=== PATIENT | female | born 1940 | race Caucasian/White ===

== ENCOUNTER 2020-08-02 11:23 | Outpatient (CLI) | payer MEDICARE, SELFPAY | END 2020-08-02 11:24 | disposition home or self-care (01) | LOC: ANHCOVIDVC 11:23 | PROVIDERS: PCP Family Medicine | DX: Z23 Encounter for immunization (principal) | CPT/HCPCS: 0001A; 91300 ==

== ENCOUNTER 2020-08-23 11:18 | Outpatient (CLI) | payer MEDICARE, SELFPAY | END 2020-08-23 11:19 | disposition home or self-care (01) | LOC: ANHCOVIDVC 11:18 | PROVIDERS: PCP Family Medicine | DX: Z23 Encounter for immunization (principal) | CPT/HCPCS: 0002A; 91300 ==

== ENCOUNTER 2021-01-11 12:39 | Outpatient (CLI) | payer MEDICARE, SELFPAY ==
--- NOTE | 2021-01-11 13:07 | ECHO_ITS ---
Patient Info Name: Sarah Beth Stafford Age: 81 years : 1940 Gender: Female Ht: 64 in Wt: 203 lbs BSA: 2.08 m2 HR: 55 bpm BP: 145 / 61 mmHg Technical Quality: Good Exam Date: 01/11/2021 1:24 PM Exam Location: [facility] Patient Status: Outpatient Admit Date: 01/11/2021 Staff Ordering Physician: Patrick Polo DO [employer] Instrument And Tool Maker: Teresita Wright RDCS Attending Provider: Patrick Polo DO Referring Physician: Christ COFFMAN; Exam Type: CA echo doppler color flow Study Info Indications - edema Complete two-dimensional, color flow and Doppler transthoracic echocardiogram is performed. Summary 1. Complete two-dimensional, color flow and Doppler transthoracic echocardiogram is performed. 2. Left ventricular chamber dimension is normal. 3. Left ventricular systolic function is normal, estimated at 55-60%. 4. There is mildly increased left ventricular wall thickness. 5. The left ventricular diastolic function is grade III diastolic dysfunction. 6. E/e' 18 is elevated. 7. Left atrial chamber dimension is severely enlarged. 8. Right atrial chamber dimension is mildly enlarged. 9. There is moderate aortic valve sclerosis. 10. There is mild aortic valve stenosis with a peak velocity of 229 cm/s, mean gradient of 13 mmHg, and aortic valve area of 1.6 cm2. 11. There is mild aortic valve regurgitation. 12. The mitral valve has mildly calcified annulus. 13. There is mild to moderate mitral valve regurgitation. 14. There is mild to moderate tricuspid valve regurgitation. 15. Mild pulmonary hypertension, estimated pulmonary arterial systolic pressure is 44 mmHg. 16. There is trivial pericardial effusion. Left Ventricle E/e' 18 is elevated. Left ventricular chamber dimension is normal. Left ventricular systolic function is normal, estimated at 55-60%. There is mildly increased left ventricular wall thickness. The left ventricular diastolic function is grade III diastolic dysfunction. Right Ventricle Right ventricular chamber dimension is normal. Right ventricular systolic function is normal. Left Atria Left atrial chamber dimension is severely enlarged. Right Atria Right atrial chamber dimension is mildly enlarged. Aortic Valve The aortic valve is trileaflet. There is moderate aortic valve sclerosis. There is mild aortic valve stenosis with a peak velocity of 229 cm/s, mean gradient of 13 mmHg, and aortic valve area of 1.6 cm2. There is mild aortic valve regurgitation. Pulmonic Valve There is no pulmonic regurgitation. Mitral Valve The mitral valve has mildly calcified annulus. There is no mitral valve stenosis. There is mild to moderate mitral valve regurgitation. Tricuspid Valve There is mild to moderate tricuspid valve regurgitation. Mild pulmonary hypertension, estimated pulmonary arterial systolic pressure is 44 mmHg. Pericardium/Pleural There is trivial pericardial effusion. Inferior Vena Cava Normal inferior vena cava with >50% collapse upon inspiration consistent with normal right atrial pressure, 5 mmHg. Aorta The aortic root size at the sinus of Valsalva is normal. Left Ventricular Outflow Tract Name Value Normal LVOT 2D LVOT Diameter 2.0 cm
== END 2021-01-11 12:40 | disposition home or self-care (01) ==
PROVIDERS: PCP Family Medicine; Visit Provider Internal Medicine Cardiovascular Disease
DX: R60.0 Localized edema (principal); I35.0 Nonrheumatic aortic (valve) stenosis; I34.0 Nonrheumatic mitral (valve) insufficiency; I36.1 Nonrheumatic tricuspid (valve) insufficiency; I27.20 Pulmonary hypertension, unspecified
CPT/HCPCS: 93306

== ENCOUNTER 2021-10-20 09:44 | Inpatient (IN) | payer MEDICARE, SELFPAY ==
[2021-10-20] VITALS (23 sets, daily range): BP systolic 110–130; BP diastolic 52–94; PULSE 63–106; RESP 16–37; TEMP 35.8–37; O2SAT 93–100; BMI 33.4
--- NOTE | 2021-10-20 | ECHO_ITS ---
Patient Info Name: Sarah Beth Stafford Age: 81 years : 1940 Gender: Female Ht: 64 in Wt: 196 lbs BSA: 2.04 m2 HR: 68 bpm BP: 127 / 63 mmHg Technical Quality: Fair Exam Date: 10/20/2021 3:00 PM Exam Location: [facility] Pulmonary Exam Room: [facility] Patient Status: Inpatient Admit Date: 10/20/2021 Staff Ordering Physician: Patrick Polo DO Oil Well Logger: Teresita Wright RDCS Attending Provider: Mouna Keller PA-C Referring Physician: Christ COFFMAN; Exam Type: CA echo doppler color flow Study Info Indications - chf Complete two-dimensional, color flow and Doppler transthoracic echocardiogram is performed. Summary 1. Complete two-dimensional, color flow and Doppler transthoracic echocardiogram is performed. 2. Left ventricular chamber dimension is normal. 3. Left ventricular systolic function is normal, estimated at 55-60%. 4. The left ventricular diastolic function is abnormal. 5. E/e' 24 is elevated. 6. Left atrial chamber dimension is severely enlarged. 7. Right atrial chamber dimension is moderately enlarged. 8. There is moderate aortic valve sclerosis. 9. There is mild aortic valve stenosis with a peak velocity of 216 cm/s, mean gradient of 9 mmHg, and aortic valve area of 1.8 cm2. 10. There is mild to moderate aortic valve regurgitation. 11. There is moderate mitral valve regurgitation. 12. There is mild tricuspid valve regurgitation. 13. Moderate pulmonary hypertension, estimated pulmonary arterial systolic pressure is 58 mmHg. Left Ventricle E/e' 24 is elevated. Left ventricular chamber dimension is normal. Left ventricular systolic function is normal, estimated at 55-60%. The left ventricular diastolic function is abnormal. Right Ventricle Right ventricular systolic function is normal and with normal TAPSE 1.7 cm. Right ventricular chamber dimension is normal. Left Atria Left atrial chamber dimension is severely enlarged. Right Atria Right atrial chamber dimension is moderately enlarged. Aortic Valve The aortic valve is trileaflet. There is moderate aortic valve sclerosis. There is mild aortic valve stenosis with a peak velocity of 216 cm/s, mean gradient of 9 mmHg, and aortic valve area of 1.8 cm2. There is mild to moderate aortic valve regurgitation. Pulmonic Valve There is no pulmonic regurgitation. Mitral Valve There is no mitral valve stenosis. There is moderate mitral valve regurgitation. Tricuspid Valve There is mild tricuspid valve regurgitation. Moderate pulmonary hypertension, estimated pulmonary arterial systolic pressure is 58 mmHg. Pericardium/Pleural There is no pericardial effusion. Inferior Vena Cava Normal inferior vena cava with >50% collapse upon inspiration consistent with normal right atrial pressure, 5 mmHg. Aorta The aortic root size at the sinus of Valsalva is normal. Left Ventricular Outflow Tract Name Value Normal LVOT 2D LVOT Diameter 2.0 cm LVOT Doppler LVOT Peak Gradient 3 mmHg LVOT Mean Gradient 2 mmHg LVOT VTI 24 cm LVOT VTI/AV
--- NOTE | ~2021-10-20 | XR_ITS ---
XR chest 1V portable DATE: 10/23/2021 05:49 INDICATION: Congestive heart failure. Shortness of breath. TECHNIQUE: Portable upright AP chest on 10/23/2021 at 0541 hours COMPARISON: 10/20/2021. AP and lateral chest FINDINGS: Cardiomegaly. Pulmonary vascular congestion and redistribution. Aortic arch calcification. There are bilateral lower lung infiltrates and/atelectasis, left greater than right. Large hiatal her kiley. Diffuse osteopenia. IMPRESSION: Cardiomegaly, congestive heart failure Bibasilar infiltrate or atelectasis, left greater than right Mild left pleural effusion Large hiatal hernia Aortic atherosclerosis Osteopenia Increased left basilar infiltrate and/or atelectasis and congestive changes since 10/20/2021 Reviewed, dictated and finalized at location A. IMPRESSION: Cardiomegaly, congestive heart failure Bibasilar infiltrate or atelectasis, left greater than right Mild left pleural effusion Large hiatal hernia Aortic atherosclerosis Osteopenia Increased left basilar infiltrate and/or atelectasis and congestive changes sin ce 10/20/2021
--- NOTE | ~2021-10-20 | XR_ITS ---
XR chest 2V DATE: 10/20/2021 10:43 INDICATION: Shortness of breath. Smoker. History of hypertension. TECHNIQUE: AP and lateral views COMPARISON: 11/16/2014 AP and lateral chest FINDINGS: Borderline heart size. Is aortic calcification, ectasia and unfolding. Large hiatal hernia. There is pulmonary vascular congestion and redistribution. Mild pleural effusions are suggested. Mild bibasilar infiltrate and/atelectasis. Osteopenia. IMPRESSION: Cardiomegaly, mild congestive heart failure Mild bibasilar infiltrate or atelectasis Large hiatal hernia Aortic atherosclerosis Osteopenia Reviewed, dictated and finalized at location B.
--- NOTE | ~2021-10-20 | US_ITS ---
EXAMINATION:US venous doppler LE BI INDICATION:Leg edema TECHNIQUE: Multiple grayscale, color flow and Doppler images of the right and left lower extremity de ep venous systems were obtained and reviewed. COMPARISON:No prior studies for comparison. FINDINGS: The common femoral, superficial femoral and popliteal veins demonstrate normal respiratory variation, augmentation and compressibility. Color flow is also seen within the posterior tibial, pe roneal, greater saphenous and profunda veins. The right peroneal vein is not visualized. IMPRESSION: 1: No lower extremity deep venous thrombosis. Reviewed, dictated and finalized at location A.
--- NOTE | 2021-10-20 09:59 | ECG_ITS ---
Measurements Intervals [place] Rate: 0 P: [place]: 0 QRS: QRSD: 0 T: QT: 0 QTc: 0 Interpretive Statements SINUS RHYTHM SUPRAVENTRICULAR TRIGEMINY INCOMPLETE LEFT BUNDLE BRANCH BLOCK ANTEROSEPTAL INFARCT, AGE INDETERMINATE BORDERLINE ST-T WAVE ABNORMALITY- HIGH LATERAL LEADS BASELINE ARTIFACT- I, II, III, AVR, AVL, AVF, V1, V4-V6 ABNORMAL ECG Electronically Signed On 10-20-2021 12:58:23 CDT by Patrick Polo D.O.
[2021-10-20 10:09] LABS: Basophils Percent Auto 0.4 % (0.2-1.2); Eosinophils Absolute Auto 0.1 K/mm3 (0-0.3); Eosinophils Percent Auto 1.7 % (0-4.4); Hematocrit 33.4 % (37.0-47.0); Immature Granulocyte Absolute 0.01 K/mm3 (0.00-0.031); Immature Granulocyte Percent A 0.1 % (0-0.5); Lymphocytes Absolute Auto 0.77 K/mm3 (0.9-3.2); Lymphocytes Percent Auto 9.4 % (18.3-44.2); Mean Corpuscular HGB Conc 29.9 g/dl (32-36); Mean Corpuscular Volume 100.3 fl (80-100); Mean Platelet Volume 9.9 fl (7.4-10.4); Monocytes Absolute Auto 0.6 K/mm3 (0.1-0.6); Neutrophils Absolute Auto 6.6 K/mm3 (1.3-6.7); Neutrophils Percent Auto 81.4 % (45.5-73.1); Platelet Count Result 143 k/mm3 (150-375); Red Blood Count 3.33 M/mm3 (4.2-5.4); Red Cell Distribution Width 14.1 % (11.5-14.5); White Blood Count 8.2 K/mm3 (4.5-10.0)
--- NOTE | 2021-10-20 10:09 | ED.SOB ---
HPI - SOB/Dyspnea General Chief Complaint: Shortness of Breath/Dyspnea Stated Complaint: trouble breathing Time Seen by Provider: 10/20/21 10:09 Source: patient and family Mode of arrival: ambulatory Limitations: no limitations History of Present Illness HPI Narrative: 81 years old white female came from home by private car complaining of shortness of breath over the last 2 weeks. Patient also complaining of inability to lay down flat, used to lay down on 1 side or the other, currently unable to lay down on either side because of the shortness of breath, patient sleeps on upright recliner. She denies any fever, chills, nausea, vomiting, coughing, Related Data Home Medications Medication Instructions Recorded Confirmed acetaminophen 500 mg tablet 500 mg PO Q4H PRN Pain (Scale 03/13/19 10/20/21 (Tylenol Extra Strength) Score 1-3) doxazosin 8 mg tablet (Cardura) See Rx Instructions .Route .COMPLEX 10/20/21 10/20/21 trazodone 100 mg tablet 100 mg PO HS 10/20/21 10/20/21 Allergies Allergy/AdvReac Type Severity Reaction Status Date / Time Penicillins Allergy Unknown Unknown Verified 06/20/21 11:20 TIDE SOAP Allergy Mild Rash Uncoded 06/20/21 11:20 Review of Systems Review of Systems: CONSTITUTIONAL: Denies fever, chills, or sweats. EYES: Denies visual changes, redness, or discharge. ENT: Denies rhinorrhea, congestion, sore throat, or otalgia. CARDIOVASCULAR: Denies chest pain, palpitations, or edema. RESPIRATORY: Denies cough or dyspnea. GASTROINTESTINAL: Denies abdominal pain, nausea, vomiting, or diarrhea. GENITOURINARY: Denies dysuria or hematuria. SKIN: Denies rash or itching. MUSCULOSKELETAL: Denies back pain, joint pain, or myalgia. NEUROLOGIC: Denies headache, numbness, or weakness. PSYCHIATRIC: Denies anxiety or depression. [facility] Past Medical History Medical History Chronic low back pain without sciatica Diastolic CHF Eczema of both external ears Edema of both lower extremities due to peripheral venous insufficiency Essential (primary) hypertension Insomnia Moderate mitral valve regurgitation Moderate to severe pulmonary hypertension Unspecified osteoarthritis, unspecified site Venous stasis ulcer of lower extremity Surgical History Surgical History History of 1976 History of cholecystectomy 10/2014 History of hysterectomy 2003 History of removal of cyst axilla - History of right cataract surgery Family History Family History Father Hypertension Mother Hypertension Father Family history of lung cancer Other Diabetes mellitus Family history of allergic disorder Family history of cardiovascular disease Family history of malignant neoplasm Family history of tuberculosis Social History Social History Smoking packs per day: 0.75 Smoking cigarettes per day: 15.0 Years smoked: 50 Smoking pack-years: 37.50 Smoking status: Current every day smoker Tobacco type: cigarettes Second hand tobacco smoke exposure: Yes Smoking end date: 10/20/21 Alcohol intake: current Substance use: never Substance use type: does not use Other substance usage details: a beer every month Additional living arrangements comments: lives in her own home, son Hung lives w/ her. Wishes for him to be her POA as well. Spiritual care concerns: No Exam Narrative: General appearance: Well-developed, well-nourished Skin: 3+ edema lower extremity bilaterally Head: Normocephalic, nontraumatic Eyes: Clear conjunctiva ENT: Oropharynx normal, ears normal, nose normal Neck: Supple, nontender Chest and respiratory: Airway patent, no respiratory distress, no accessory muscle use Heart: Regular rate/rhythm Abdomen: Soft, nontender, no organomegaly, quiet bowel sounds Vascular
[2021-10-20 10:20] LABS: Alanine Aminotransferase 26 U/L (6-35); Albumin Level 3.6 g/dL (3.5-5.1); Alkaline Phosphatase 111 U/L (38-126); Anion Gap 6 mmol/L (8-16); Aspartate Amino Transferase 24 U/L (14-36); Bilirubin,Total 0.9 mg/dL (0.2-1.3); Blood Urea Nitrogen 30 mg/dL (7-17); Carbon Dioxide 27 mmol/L (22-30); Chloride 108 mmol/L (98-107); Estimated CRCL calculation 30 ml/min; Estimated Glomerular Filt Rate 33; Glucose 96 mg/dL (65-110); Potassium 5.3 mmol/L (3.4-5.0); Sodium 141 mmol/L (137-145)
[2021-10-20 10:31] LABS: Alveolar/Arterial O2 Gradient 26.2 mmHg; Base Excess ABG 1.5 mEq/l (+/-2.0); Carboxyhemoglobin 2.7 % THb (0-2.0); Fractional Inspired Oxygen 21 %; HCO3 ABG 27.2 mEq/l (22.0-26.0); Methemoglobin ABG 0.3 %THb (0-1.5); Oxygen Content ABG 13.8 %vol (16.0-22.0); Oxygen Saturation ABG 92.6 % (95.0-100.0); Oxyhemoglobin 89.1 % THb (90.0-100.0); PCO2 ABG 47.6 mmHg (35.0-45.0); PO2 ABG 66.5 mmHg (80.0-100.0); PO2 FiO2 Ratio Arterial Blood 3.17 %; Reduced Hemoglobin 7.9 %THb (0-5.0); pH ABG 7.375 (7.350-7.450)
[2021-10-20 10:47] LABS: Modified Allen's Test Pass; Site Drawn RIGHT RADIAL
[2021-10-20 10:50] LABS: NT Pro B Type Natriuretic Pept 13500 pg/mL (5-100); Troponin I 0.074 ng/mL (0.000-0.034)
[2021-10-20 11:32] LABS: INR 1.1; Prothrombin Time 14.1 Seconds (11.1-14.7)
[2021-10-20 11:33] LABS: Partial Thromboplastin Time 31.8 SECONDS (22.3-36.8)
[2021-10-20] MEDS: FUROSEMIDE INJ 40 MG/4 ML VIAL 60 MG IV PUSH (12:33)
[2021-10-20] MEDS: NITROGLYCERIN OINTMENT 1 INCH DOSE TRANSDERM (12:34)
--- NOTE | 2021-10-20 12:38 | ECG_ITS ---
Measurements Intervals [place] Rate: 65 P: [place]: 0 QRS: 99 QRSD: 106 T: 22 QT: 405 QTc: 422 Interpretive Statements ATRIAL FLUTTER/TACHYCARDIA RIGHT AXIS DEVIATION ANTEROSEPTAL INFARCT, AGE INDETERMINATE BASELINE ARTIFACT- I, V6 ABNORMAL ECG Electronically Signed On 10-21-2021 7:44:41 CDT by Patrick Polo D.O.
--- NOTE | 2021-10-20 12:46 | PM.CNCAR ---
Assessment and Plan Assessment and plan (1) CHF (congestive heart failure): Code(s): I50.9 - Heart failure, unspecified Status: Acute Assessment and Plan: Probably acute on chronic diastolic heart failure. Diurese with Lasix 20 mg IV q12hrs. Monitor kidney function and electrolytes. Obtain echo. (2) Elevated troponin: Code(s): R77.8 - Other specified abnormalities of plasma proteins Status: Acute Assessment and Plan: Trend troponin to peak. Likely due to volume overload from CHF. (3) Tobacco abuse: Code(s): Z72.0 - Tobacco use Status: Acute Assessment and Plan: Counseled regarding smoking cessation. (4) Diastolic dysfunction: Code(s): I51.89 - Other ill-defined heart diseases Status: Acute (5) Essential (primary) hypertension: Code(s): I10 - Essential (primary) hypertension Status: Acute Assessment and Plan: Stable. History of Present Illness History of Present Illness Consult date/time: 10/20/21 12:46 Consult reason: congestive heart failure Reason For Visit: trouble breathing Narrative: 81 yr old woman presents to ER for sob. She has a history of hypertension, diastolic dysfunction. Presents with her son.?States that for last 2 weeks she has noted worsening sob and orthopnea and some edema. She has not been able to sleep since she cannot lie down due to sob. She is limited at walking in her house from room to room due to chronic back pain first then possibly due to MARCELINO. She has severe knee pains. She smokes 1/2 ppd. Did not tolerate Chantix. CARDIOVASCULAR PROCEDURES ECHO/MUGA: Echo (EF 65%, mild LVH, grade II diastolic dysfunction (E/E' 27), mild LAE, mild-mod MR, mild AI/TR, RVSP 45 mmHg.) - 06/02/2018 Echo (EF 60-65%, grade II diastolic dysfunction (E/E' 28), mod LVH, mild LAE, mild MR, mild , tr-mild AI, trace TR, RVSP 43 mmHg.) - 05/24/2017 Echo (EF 60-65%, mild LVH, diastolic dysfunction, mild LAE, mild MVP, mod-severe MR, mild AI/TR/PI, RVSP 50-55 mmHg, small pericardial effusion.) - 05/31/2016 ELECTROPHYSIOLOGY: EKG (Sinus rhythm, LVH.) - 11/16/2014 Review of Systems Review of Systems: All systems reviewed & are unremarkable except as noted in HPI and below Constitutional: Constitutional: Reports as per HPI, Denies chills, Reports difficulty sleeping and Denies fever(s) Cardiovascular: Cardiovascular: Reports as per HPI, Denies chest pain, Denies irregular heart rhythm and Reports leg edema Respiratory: Respiratory: Reports as per HPI and Reports dyspnea Gastrointestinal: Gastrointestinal: Reports as per HPI and Denies abdominal pain Genitourinary: Genitourinary: Reports as per HPI and Denies dysuria Musculoskeletal: Musculoskeletal: Reports as per HPI Neurologic: Reports as per HPI, Denies dizziness and Denies syncope [facility] Past Medical History Medical History Chronic low back pain without sciatica Eczema of both external ears Edema of both lower extremities due to peripheral venous insufficiency Essential (primary) hypertension Insomnia Moderate mitral valve regurgitation Moderate to severe pulmonary hypertension Unspecified osteoarthritis, unspecified site Venous stasis ulcer of lower extremity Surgical History Surgical History History of 1976 History of cholecystectomy 10/2014 History of hysterectomy 2003 History of removal of cyst axilla - History of right cataract surgery Family History Family History Father Hypertension Mother Hypertension Father Family history of lung cancer Other Diabetes mellitus Family history of allergic disorder Family history of cardiovascular disease Family history of malignant neoplasm Family history of tuberculosis Social History Social History (Reviewed 10/20/21 @ 12:3
--- NOTE | 2021-10-20 13:11 | PM.IMHP ---
H&P: HPI History of Present Illness Date/Time: 10/20/21 13:11 Chief Complaint: sob Narrative: 81 yo female w/ hx of HTN, diastolic CHF, mitral valve regurgitation, venous insufficiency, COPD, who presented to the ED for evaluation of sob. Pt c/o worsening orthopnea and MARCELINO x 2 weeks. Has also had increasing LE edema x 2 weeks. Legs feel tight but not painful. Admits to flutters in her chest for the past 2-3 days. No cp. No dizziness or syncope. Has N/V secondary to post nasal drip from allergies which is chronic. Had an episode of diarrhea this morning which she states always happens whenever she drinks hot coffee. No recent cough/fever/chills/bodyaches. No paraesthesias, vision changes, focal weakness. Workup in the ED significant for CXR w/ cardiomegaly and pulmonary edema, elevated troponin of 0.074, BNP of 13,500. Pt is being admitted as observation status in this setting. Review of Systems Review of Systems: General: Denies fevers Eyes: Denies vision changes ENT: Denies nasal congestion or sore throat, +rhinorrhea/PND Respiratory: Denies cough, +shortness of breath Cardiovascular: Denies chest pain, + lower extremity edema Gastrointestinal: Denies abdominal pain, + diarrhea Genitourinary: Denies dysuria, +urinary incontinence (chronic) Musculoskeletal: + back pain (chronic) Neurological: Denies headache or motor weakness Integumentary: Denies rash [facility] Past Medical History Medical History (Updated 10/20/21 @ 13:31 by Mouna Keller PA-C) Chronic low back pain without sciatica Diastolic CHF Eczema of both external ears Edema of both lower extremities due to peripheral venous insufficiency Essential (primary) hypertension Insomnia Moderate mitral valve regurgitation Moderate to severe pulmonary hypertension Unspecified osteoarthritis, unspecified site Venous stasis ulcer of lower extremity Surgical History Surgical History History of 1976 History of cholecystectomy 10/2014 History of hysterectomy 2003 History of removal of cyst axilla - History of right cataract surgery Family History Family History Father Hypertension Mother Hypertension Father Family history of lung cancer Other Diabetes mellitus Family history of allergic disorder Family history of cardiovascular disease Family history of malignant neoplasm Family history of tuberculosis Social History Social History (Updated 10/20/21 @ 13:30 by Mouna Keller PA-C) Smoking packs per day: 0.75 Smoking cigarettes per day: 15.0 Years smoked: 50 Smoking pack-years: 37.50 Smoking status: Current every day smoker Tobacco type: cigarettes Second hand tobacco smoke exposure: Yes Smoking end date: 10/20/21 Alcohol intake: current Substance use: never Substance use type: does not use Other substance usage details: a beer every month Additional living arrangements comments: lives in her own home, son Hung lives w/ her. Wishes for him to be her POA as well. Spiritual care concerns: No Meds Home Medications and Allergies Home Medications Medication Instructions Recorded Confirmed Type acetaminophen 500 mg tablet 500 mg PO Q4H PRN Pain (Scale 03/13/19 10/20/21 History (Tylenol Extra Strength) Score 1-3) diclofenac sodium 75 mg 75 mg PO DAILY #90 tabs 04/25/21 10/20/21 Rx tablet,delayed release furosemide 20 mg tablet See Rx Instructions .Route 06/06/21 10/20/21 Rx .COMPLEX #90 tabs metoprolol succinate 100 mg 100 mg PO DAILY #90 tabs 06/06/21 10/20/21 Rx tablet,extended release 24 hr lisinopril 10 mg tablet See Rx Instructions .Route 08/21/21 10/20/21 Rx .COMPLEX #90 tabs spironolactone 25 mg tablet See Rx Instructions .Route 09/02/21 10/20/21 Rx .COMPLEX #90 tabs doxazosin 8 mg tablet (Cardura) See Rx Instructions .Route .COM
--- NOTE | 2021-10-20 13:29 | PC.NURSE ---
attempted report. RN unavailable
[2021-10-20 16:07] LABS: Troponin I 0.089 ng/mL (0.000-0.034)
[2021-10-20] MEDS: FUROSEMIDE INJ 40 MG/4 ML VIAL 20 MG IV PUSH (16:55)
--- NOTE | 2021-10-20 16:58 | PC.NURSE ---
This patient, Sarah Beth Stafford, was admitted to IMU Room 204-01. Patient/family oriented to hospital policies and general routines including ID bracelet, bed and alarms, visiting hours, pain management, procedures, bathroom and other care routines, personal items, smoking policy, room service/diet, and visiting hours. Information on how to activate the Rapid Response Team has been discussed. Patient/Family are encouraged to report perceived risks to care and to ask questions if they do not understand what they are told or what they should do.
[2021-10-20 17:29] LABS: EDCOVIDSCREEN Negative (Negative)
--- NOTE | 2021-10-20 19:38 | PC.NURSE ---
Called Araceli Keller d/t pt's irregular HR. Jose Roberto Keller ordered to do second EKG, and notify MD Christ. EKG done and endorsed to shift nurse manager nurse to call MD Christ for possible new orders.
[2021-10-20] MEDS: traZODone HCL 50 MG TABLET 100 MG PO (21:11)
[2021-10-20] MEDS: DOXAZOSIN MESYLATE 4 MG TABLET 8 MG BY MOUTH (21:11)
[2021-10-21] VITALS (21 sets, daily range): BP systolic 85–111; BP diastolic 37–74; PULSE 57–110; RESP 18–24; TEMP 35.9–36.9; O2SAT 92–98
[2021-10-21 05:21] LABS: Anion Gap 5 mmol/L (8-16); Blood Urea Nitrogen 37 mg/dL (7-17); Calcium 7.7 mg/dL (8.4-10.2); Carbon Dioxide 27 mmol/L (22-30); Chloride 106 mmol/L (98-107); Estimated CRCL calculation 26 ml/min; Estimated Glomerular Filt Rate 29; Glucose 80 mg/dL (65-110); Potassium 5.4 mmol/L (3.4-5.0); Sodium 138 mmol/L (137-145)
--- NOTE | 2021-10-21 08:51 | PM.PNCARD ---
Progress Note: A&P Assessment and Plan (1) Acute on chronic diastolic (congestive) heart failure: Code(s): I50.33 - Acute on chronic diastolic (congestive) heart failure Status: Acute Assessment and Plan: Improving. Echo shows EF 55-60%, mild , mild-mod AI, mod MR, mod pulm hypertension with RVSP 58 mmHg. Stop Spironolactone due to hyperkalemia with potassium 5.4 and Cr 1.7/GFR 26.. Continue Lasix 20 mg IV BID. Monitor electrolytes and renal function. (2) JERRY (acute kidney injury): Code(s): N17.9 - Acute kidney failure, unspecified Status: Acute (3) Hyperkalemia: Code(s): E87.5 - Hyperkalemia Status: Acute (4) Elevated troponin: Code(s): R77.8 - Other specified abnormalities of plasma proteins Status: Acute Assessment and Plan: Peaked at .089, likely due to type II infarct related to volume overload. Symptoms do not suggest ACS. (5) Tobacco abuse: Code(s): Z72.0 - Tobacco use Status: Acute Assessment and Plan: Counseled regarding smoking cessation. (6) Obesity: Code(s): E66.9 - Obesity, unspecified Status: Acute (7) Essential (primary) hypertension: Code(s): I10 - Essential (primary) hypertension Status: Acute Assessment and Plan: Stable. (8) Atrial flutter, paroxysmal: Code(s): I48.92 - Unspecified atrial flutter Status: Acute Assessment and Plan: [id number] 5. On aspirin. Rate is controlled on Metoprolol. Stop aspirin. Start Eliquis 2.5 mg BID. Subjective Date/time seen: 10/21/21 08:51 Denies chest pain. Has SOB but was able to sleep last night. Exam Const: General: cooperative, healthy appearing and comfortable Nutritional Appearance: obese Resp: Auscultation: clear to auscultation bilaterally, no crackles, no rales, no rhonchi and no wheezes Cardio: Jugular venous distension: no JVD Rate: regular rate Rhythm: regular rhythm Heart sounds: no murmurs Peripheral pulses: dorsalis pedis present GI: GI Palp: No abdominal tenderness and Yes Soft to palpation Neuro: General: oriented to person, oriented to place and oriented to time Extrem: Right lower extremity: edema Left lower extremity: edema Other: Trace edema of both legs Objective Data Vital Signs Vital Signs: Vital Signs - 24 hr 10/20/21 09:49 10/20/21 09:56 10/20/21 10:03 Temperature 98.4 F Pulse Rate 76 86 70 Respiratory Rate 37 H 34 H Blood Pressure 110/94 H Pulse Oximetry 93 94 Oxygen Delivery Room Air Oxygen Flow Rate 10/20/21 10:15 10/20/21 10:17 10/20/21 10:31 Temperature Pulse Rate 71 71 80 Respiratory Rate 26 H 33 H 32 H Blood Pressure 125/68 Pulse Oximetry 94 Oxygen Delivery Oxygen Flow Rate 10/20/21 10:32 10/20/21 11:14 10/20/21 11:39 Temperature Pulse Rate 106 H 88 85 Respiratory Rate 28 H 23 H 35 H Blood Pressure 127/63 Pulse Oximetry 95 Oxygen Delivery Oxygen Flow Rate 10/20/21 11:45 10/20/21 12:05 10/20/21 12:15 Temperature Pulse Rate 90 82 87 Respiratory Rate 27 H 30 H 19 Blood Pressure Pulse Oximetry 100 98 97 Oxygen Delivery Oxygen Flow Rate 10/20/21 12:30 10/20/21 13:40 10/20/21 14:10 Temperature 98.6 F Pulse Rate 69 68 70 Respiratory Rate 17 16 28 H Blood Pressure 112/70 130/86 Pulse Oximetry 97 100 Oxygen Delivery Oxygen Flow Rate 10/20/21 14:40 10/20/21 16:49 10/20/21 14:00 Temperature 98.6 F 96.5 F L Pulse Rate 70 86 88 Respiratory Rate 28 H 20 Blood Pressure 130/86 121/59 L Pulse Oximetry 100 98 Oxygen Delivery Oxygen Flow Rate 10/20/21 16:00 10/20/21 16:00 10/20/21 18:48 Temperature 96.5 F L 97.0 F L Pulse Rate 68 86 80 Respiratory Rate 20 28 H Blood Pressure 121/59 L 111/52 L Pulse Oximetry 98 95 Oxygen Delivery Oxygen Flow Rate 10/20/21 18:00 10/20/21 20:00 10/20/21 20:00 Temperature Pulse Rate 63 68 Respiratory Rate Bloo
[2021-10-21] MEDS: METOPROLOL SUCCINATE EXT REL 100 MG TABCR PO (09:24)
[2021-10-21] MEDS: FUROSEMIDE INJ 40 MG/4 ML VIAL 20 MG IV PUSH (09:25)
[2021-10-21] MEDS: lisinopriL 10 MG TABLET BY MOUTH (09:25)
[2021-10-21] MEDS: DICLOFENAC SOD 75 MG TABLET.EC PO (09:25)
--- NOTE | 2021-10-21 10:14 | PM.IMPN ---
Progress Note: A&P Assessment and Plan (1) CHF (congestive heart failure): Qualifiers: Heart failure chronicity: acute on chronic Heart failure type: diastolic Qualified Code(s): I50.33 - Acute on chronic diastolic (congestive) heart failure Code(s): I50.9 - Heart failure, unspecified Status: Acute Assessment and Plan: -CXR w/ pulmonary edema, BNP 13,500 -echo shows EF 55-60%, mild , mild-mod AI, mod MR, mod pulm hypertension -cardiology consulted -IV lasix 20 mg q12 hr per cardiology -stop spironolactone due to hyperkalemia w/ K of 5.4 and Cr 1.7 -monitor BMP daily (2) Elevated troponin: Code(s): R77.8 - Other specified abnormalities of plasma proteins Status: Acute Assessment and Plan: -baseline elevated at 0.074, peaked at 0.089 -likely secondary to volume overload -cardiology consulted, states symptoms do not suggest ACS (3) Acute and chronic respiratory failure with hypoxia: Code(s): J96.21 - Acute and chronic respiratory failure with hypoxia Status: Acute Assessment and Plan: -likely secondary to above -also likely has COPD w/ being a lifelong smoker, however had not previously been formerly diagnosed and does not use any maintenance inhalers -she is not wheezing so will hold off on steroids/nebs for the time being as I suspect her respiratory failure is most likely secondary to acute CHF -improving w/ diuresis (4) Tobacco abuse: Code(s): Z72.0 - Tobacco use Status: Acute Assessment and Plan: -counseled on smoking cessation -tells me she is quitting -declines need for nicotine patch (5) JERRY (acute kidney injury): Code(s): N17.9 - Acute kidney failure, unspecified Status: Acute Assessment and Plan: -baseline renal function unknown -June 2020 creat was 0.89, December 2020 creat was 1.34 -on arrival here creat is 1.5, will monitor closely while diuresing -increased to 1.7 today, discussed w/ cardiology, will continue Lasix 20 mg IV BID for now, BMP tomorrow AM (6) Hyperkalemia: Code(s): E87.5 - Hyperkalemia Status: Acute Assessment and Plan: -slightly elevated at 5.4, does have JERRY w/ creat 1.7 -will give Lokelma -continue lasix 20 mg IV BID -repeat BMP in AM (7) Edema of both legs: Code(s): R60.0 - Localized edema Status: Acute Assessment and Plan: -likely due to CHF -bilateral venous dopplers negative -improving (8) Atrial flutter, paroxysmal: Code(s): I48.92 - Unspecified atrial flutter Status: Acute Assessment and Plan: -Rate is controlled on Metoprolol. -[id number] 5. Stop aspirin. Start Eliquis 2.5 mg BID. Subjective Date/time seen: 10/21/21 10:14 Interval history: 81 yo female w/ hx of HTN, diastolic CHF, mitral valve regurgitation, venous insufficiency, COPD, admitted for CHF exacerbation. Pt is feeling a little better today. She was able to get some rest last night. Breathing is slightly improved. LE edema is also improving. No cp. Review of Systems Review of Systems: All systems reviewed & are unremarkable except as noted in HPI and below Exam Narrative: General: No acute distress, chronically ill appearing, obese, elderly Eyes: PERRL, no scleral icterus HEENT: NCAT, external ears normal, dry mucous membranes Respiratory: No respiratory distress, Lungs sounds diminished bilaterally, no wheezing Cardiovascular: RRR, no murmur Abdominal: Soft, nontender, non distended, no rebound or guarding Musculoskeletal: Moves all 4 extremities, 1+ edema BLE, abrasion noted to R anterior harris Neurological: A/Ox3, speech clear, no facial asymmetry Skin: Warm, dry Psychiatric: Normal affect, normal mood Objective Data Vital Signs Vital Signs: Vital Signs - 24 hr 10/20/21 10:15 10/20/21 10:17 10/20/21 10:31 Temperature Pulse Rate 71 71 80
[2021-10-21] MEDS: SODIUM ZIRCONIUM CYCLOSILICATE 10 GM POWD.PACK PO ×2 (11:23→17:10)
[2021-10-21] MEDS: SODIUM CHLORIDE 0.9% IV 250 ML 999 ML IV CONT (12:15)
[2021-10-21] MEDS: APIXABAN 2.5 MG TABLET PO ×2 (12:16→20:48)
[2021-10-21] MEDS: traZODone HCL 50 MG TABLET 100 MG PO (20:49)
[2021-10-21] MEDS: DOXAZOSIN MESYLATE 4 MG TABLET 8 MG BY MOUTH (20:49)
[2021-10-22] VITALS (17 sets, daily range): BP systolic 91–116; BP diastolic 32–75; PULSE 56–108; RESP 20–28; TEMP 36.5–37.1; O2SAT 93–98
[2021-10-22 05:03] LABS: Basophils Percent Auto 0.2 % (0.2-1.2); Eosinophils Absolute Auto 0.2 K/mm3 (0-0.3); Eosinophils Percent Auto 1.9 % (0-4.4); Hematocrit 33.1 % (37.0-47.0); Hemoglobin 9.7 g/dL (12.0-15.0); Immature Granulocyte Absolute 0.03 K/mm3 (0.00-0.031); Immature Granulocyte Percent A 0.4 % (0-0.5); Lymphocytes Absolute Auto 0.59 K/mm3 (0.9-3.2); Lymphocytes Percent Auto 7.3 % (18.3-44.2); Mean Corpuscular HGB Conc 29.3 g/dl (32-36); Mean Corpuscular Hemoglobin 29.9 pg (26-34); Mean Corpuscular Volume 102.2 fl (80-100); Mean Platelet Volume 10.3 fl (7.4-10.4); Monocytes Absolute Auto 0.8 K/mm3 (0.1-0.6); Monocytes Percent Auto 9.6 % (2.6-8.5); Neutrophils Absolute Auto 6.5 K/mm3 (1.3-6.7); Neutrophils Percent Auto 80.6 % (45.5-73.1); Platelet Count Result 152 k/mm3 (150-375); Red Blood Count 3.24 M/mm3 (4.2-5.4); Red Cell Distribution Width 13.9 % (11.5-14.5); White Blood Count 8.1 K/mm3 (4.5-10.0)
[2021-10-22 05:15] LABS: Anion Gap 3 mmol/L (8-16); Blood Urea Nitrogen 45 mg/dL (7-17); Calcium 7.5 mg/dL (8.4-10.2); Carbon Dioxide 33 mmol/L (22-30); Chloride 103 mmol/L (98-107); Estimated CRCL calculation 26 ml/min; Estimated Glomerular Filt Rate 29; Glucose 102 mg/dL (65-110); Sodium 139 mmol/L (137-145)
--- NOTE | 2021-10-22 07:17 | PM.PNCARD ---
Progress Note: A&P Assessment and Plan (1) Acute on chronic diastolic (congestive) heart failure: Code(s): I50.33 - Acute on chronic diastolic (congestive) heart failure Status: Acute Assessment and Plan: Improving. Echo shows EF 55-60%, mild , mild-mod AI, mod MR, mod pulm hypertension with RVSP 58 mmHg. Stopped Spironolactone due to hyperkalemia with potassium 5.4 and Cr 1.7/GFR 26. Decreased Lasix 20 mg IV qd due to hypotension. Potassium improving at 5.0, and Cr 1.7/GFR 26. Monitor electrolytes and renal function. Change Lasix to 20 mg IV daily to 20 mg PO BID. Have patient ambulate and if doing well may d/c home from cardiology standpoint to f/u with me in 1 week. (2) JERRY (acute kidney injury): Code(s): N17.9 - Acute kidney failure, unspecified Status: Acute (3) Hyperkalemia: Code(s): E87.5 - Hyperkalemia Status: Acute (4) Elevated troponin: Code(s): R77.8 - Other specified abnormalities of plasma proteins Status: Acute Assessment and Plan: Peaked at .089, likely due to type II infarct related to volume overload. Symptoms do not suggest ACS. (5) Tobacco abuse: Code(s): Z72.0 - Tobacco use Status: Acute Assessment and Plan: Counseled regarding smoking cessation. (6) Obesity: Code(s): E66.9 - Obesity, unspecified Status: Acute (7) Essential (primary) hypertension: Code(s): I10 - Essential (primary) hypertension Status: Acute Assessment and Plan: Hypotensive on 10/21/21. Stopped Lisinopril. (8) Atrial flutter, paroxysmal: Code(s): I48.92 - Unspecified atrial flutter Status: Acute Assessment and Plan: [id number] 5. On aspirin. Rate is controlled on Metoprolol. Stopped aspirin. Started Eliquis 2.5 mg BID. Subjective Date/time seen: 10/22/21 07:17 Reports no chest pain or sob. Slept better. Exam Const: General: cooperative, healthy appearing and comfortable Nutritional Appearance: obese Resp: Auscultation: clear to auscultation bilaterally, no crackles, no rales, no rhonchi and no wheezes Cardio: Jugular venous distension: no JVD Rate: regular rate Rhythm: regular rhythm Heart sounds: no murmurs Peripheral pulses: dorsalis pedis present GI: GI Palp: No abdominal tenderness and Yes Soft to palpation Neuro: General: oriented to person, oriented to place and oriented to time Extrem: Right lower extremity: no edema Left lower extremity: no edema Objective Data Vital Signs Vital Signs: Vital Signs - 24 hr 10/21/21 07:42 10/21/21 07:58 10/21/21 08:00 Temperature 96.6 F L Pulse Rate 71 77 Respiratory Rate 18 Blood Pressure 99/37 L Pulse Oximetry 96 96 Oxygen Delivery Nasal Cannula Oxygen Flow Rate 2 10/21/21 09:24 10/21/21 10:00 10/21/21 12:08 Temperature 96.6 F L Pulse Rate 110 H 74 81 Respiratory Rate 21 H Blood Pressure 85/38 L Pulse Oximetry 98 Oxygen Delivery Oxygen Flow Rate 10/21/21 12:39 10/21/21 12:00 10/21/21 12:00 Temperature Pulse Rate 74 Respiratory Rate Blood Pressure 103/46 L Pulse Oximetry 98 Oxygen Delivery Nasal Cannula Oxygen Flow Rate 2 10/21/21 14:00 10/21/21 16:17 10/21/21 10:05 Temperature 97.3 F L Pulse Rate 62 71 Respiratory Rate 20 Blood Pressure 91/74 L Pulse Oximetry 97 92 Oxygen Delivery Nasal Cannula Oxygen Flow Rate 2 10/21/21 16:00 10/21/21 16:00 10/21/21 18:00 Temperature Pulse Rate 57 L 71 Respiratory Rate Blood Pressure Pulse Oximetry 97 Oxygen Delivery Nasal Cannula Oxygen Flow Rate 2 10/21/21 20:00 10/21/21 22:00 10/21/21 20:00 Temperature 98.4 F Pulse Rate 75 64 68 Respiratory Rate 24 H Blood Pressure 94/69 L Pulse Oximetry 97 Oxygen Delivery Oxygen Flow Rate 10/21/21 20:00 10/21/21 23:13 10/22/21 00:56 Temperature 98.2 F Pulse Rate 78 Respiratory Rate 20 Blood Pressure 109/49 L 10
[2021-10-22] MEDS: SODIUM ZIRCONIUM CYCLOSILICATE 10 GM POWD.PACK PO ×2 (10:51→18:09)
[2021-10-22] MEDS: METOPROLOL SUCCINATE EXT REL 100 MG TABCR PO (10:51)
[2021-10-22] MEDS: FUROSEMIDE 20 MG TABLET PO ×2 (10:51→18:09)
[2021-10-22] MEDS: APIXABAN 2.5 MG TABLET PO ×2 (10:52→21:30)
--- NOTE | 2021-10-22 12:28 | PC.NURSE ---
Patient blood pressure low. Contacted [facility] Keller and Dr Polo. Dr. Polo adjusted Metoprolol to 50 mg Succinate and will keep patient another day or 2.
--- NOTE | 2021-10-22 13:01 | PM.IMPN ---
Progress Note: A&P Assessment and Plan (1) CHF (congestive heart failure): Qualifiers: Heart failure chronicity: acute on chronic Heart failure type: diastolic Qualified Code(s): I50.33 - Acute on chronic diastolic (congestive) heart failure Code(s): I50.9 - Heart failure, unspecified Status: Acute Assessment and Plan: -CXR w/ pulmonary edema, BNP 13,500 -echo shows EF 55-60%, mild , mild-mod AI, mod MR, mod pulm hypertension -cardiology consulted -IV lasix 20 mg q12 hr per cardiology, switched to PO today in preparation for discharge -stop spironolactone due to hyperkalemia w/ K of 5.4 and Cr 1.7 -reduced metoprolol from 100 to 50 daily today as she has been somewhat hypotensive -monitor renal function w/ daily (2) Elevated troponin: Code(s): R77.8 - Other specified abnormalities of plasma proteins Status: Acute Assessment and Plan: -baseline elevated at 0.074, peaked at 0.089 -likely secondary to volume overload -cardiology consulted, states symptoms do not suggest ACS (3) Acute and chronic respiratory failure with hypoxia: Code(s): J96.21 - Acute and chronic respiratory failure with hypoxia Status: Acute Assessment and Plan: -likely secondary to above -also likely has COPD w/ being a lifelong smoker, however had not previously been formerly diagnosed and does not use any maintenance inhalers -she is not wheezing so will hold off on steroids/nebs for the time being as I suspect her respiratory failure is most likely secondary to acute CHF -improving w/ diuresis (4) Tobacco abuse: Code(s): Z72.0 - Tobacco use Status: Acute Assessment and Plan: -counseled on smoking cessation -tells me she is quitting -declines need for nicotine patch (5) JERRY (acute kidney injury): Code(s): N17.9 - Acute kidney failure, unspecified Status: Acute Assessment and Plan: -baseline renal function unknown -June 2020 creat was 0.89, December 2020 creat was 1.34 -on arrival here creat is 1.5, will monitor closely while diuresing -increased to 1.7 yesterday, 1.7 again today, discussed w/ cardiology, will continue Lasix 20 mg PO BID for now, BMP tomorrow AM (6) Hyperkalemia: Code(s): E87.5 - Hyperkalemia Status: Acute Assessment and Plan: -slightly elevated at 5.4, does have JERRY w/ creat 1.7 -will give Lokelma -continue lasix 20 mg PO BID -resolved, K 5.0 today -repeat BMP in AM (7) Edema of both legs: Code(s): R60.0 - Localized edema Status: Acute Assessment and Plan: -likely due to CHF -bilateral venous dopplers negative -improving (8) Atrial flutter, paroxysmal: Code(s): I48.92 - Unspecified atrial flutter Status: Acute Assessment and Plan: -Rate is controlled on Metoprolol. -[id number] 5. Stop aspirin. Start Eliquis 2.5 mg BID. Subjective Date/time seen: 10/22/21 13:01 Interval history: 81 yo female w/ hx of HTN, diastolic CHF, mitral valve regurgitation, venous insufficiency, COPD, admitted for CHF exacerbation. Pt denies sob at rest but states she is still unable to breathe while laying flat. Somewhat labored breathing today. Denies cp. Still has LE edema but improving. Review of Systems Review of Systems: All systems reviewed & are unremarkable except as noted in HPI and below Exam Narrative: General: No acute distress, chronically ill appearing, obese, elderly Eyes: PERRL, no scleral icterus HEENT: NCAT, external ears normal, dry mucous membranes Respiratory: Lungs sounds diminished bilaterally, no wheezing, somewhat labored abdominal breathing, still on 2L NC Cardiovascular: RRR, no murmur Abdominal: Soft, nontender, non distended, no rebound or guarding Musculoskeletal: Moves all 4 extremities, 1+ edema BLE, abrasion noted to R anterior harris Neurological: A/Ox3, speech clear, no f
[2021-10-22] MEDS: DOXAZOSIN MESYLATE 4 MG TABLET 8 MG BY MOUTH (21:29)
[2021-10-22] MEDS: traZODone HCL 50 MG TABLET 100 MG PO (21:29)
[2021-10-23] VITALS (18 sets, daily range): BP systolic 95–109; BP diastolic 36–60; PULSE 55–84; RESP 12–22; TEMP 36.4–36.9; O2SAT 88–100
[2021-10-23 05:26] LABS: Basophils Percent Auto 0.1 % (0.2-1.2); Eosinophils Absolute Auto 0.1 K/mm3 (0-0.3); Eosinophils Percent Auto 1.5 % (0-4.4); Hematocrit 33.8 % (37.0-47.0); Immature Granulocyte Absolute 0.03 K/mm3 (0.00-0.031); Immature Granulocyte Percent A 0.4 % (0-0.5); Lymphocytes Absolute Auto 0.81 K/mm3 (0.9-3.2); Lymphocytes Percent Auto 11.4 % (18.3-44.2); Mean Corpuscular HGB Conc 29.6 g/dl (32-36); Mean Corpuscular Volume 101.5 fl (80-100); Mean Platelet Volume 10.4 fl (7.4-10.4); Monocytes Absolute Auto 0.6 K/mm3 (0.1-0.6); Monocytes Percent Auto 8.9 % (2.6-8.5); Neutrophils Absolute Auto 5.5 K/mm3 (1.3-6.7); Neutrophils Percent Auto 77.7 % (45.5-73.1); Platelet Count Result 161 k/mm3 (150-375); Red Blood Count 3.33 M/mm3 (4.2-5.4); Red Cell Distribution Width 13.9 % (11.5-14.5); White Blood Count 7.1 K/mm3 (4.5-10.0)
[2021-10-23 05:32] LABS: Anion Gap 1 mmol/L (8-16); Blood Urea Nitrogen 34 mg/dL (7-17); Calcium 7.6 mg/dL (8.4-10.2); Carbon Dioxide 37 mmol/L (22-30); Chloride 100 mmol/L (98-107); Estimated CRCL calculation 28 ml/min; Estimated Glomerular Filt Rate 31; Glucose 94 mg/dL (65-110); Potassium 4.2 mmol/L (3.4-5.0); Sodium 138 mmol/L (137-145)
--- NOTE | 2021-10-23 08:09 | PM.PNCARD ---
Progress Note: A&P Assessment and Plan (1) Acute on chronic diastolic (congestive) heart failure: Code(s): I50.33 - Acute on chronic diastolic (congestive) heart failure Status: Acute Assessment and Plan: Improving. Echo shows EF 55-60%, mild , mild-mod AI, mod MR, mod pulm hypertension with RVSP 58 mmHg. Stopped Spironolactone due to hyperkalemia with potassium 5.4 and Cr 1.7/Cr Cl 26. Decreased Lasix 20 mg IV qd due to hypotension. Potassium improving at 4.2, and Cr 1.6/Cr Cl 28. Monitor electrolytes and renal function. On Lasix 20 mg PO BID. Have patient ambulate and if doing well may d/c home from cardiology standpoint to f/u with me in 1 week. (2) JERRY (acute kidney injury): Code(s): N17.9 - Acute kidney failure, unspecified Status: Acute (3) Hyperkalemia: Code(s): E87.5 - Hyperkalemia Status: Acute (4) Elevated troponin: Code(s): R77.8 - Other specified abnormalities of plasma proteins Status: Acute Assessment and Plan: Peaked at .089, likely due to type II infarct related to volume overload. Symptoms do not suggest ACS. (5) Tobacco abuse: Code(s): Z72.0 - Tobacco use Status: Acute Assessment and Plan: Counseled regarding smoking cessation. (6) Obesity: Code(s): E66.9 - Obesity, unspecified Status: Acute (7) Essential (primary) hypertension: Code(s): I10 - Essential (primary) hypertension Status: Acute Assessment and Plan: Hypotensive on 10/21/21. Stopped Lisinopril. (8) Atrial flutter, paroxysmal: Code(s): I48.92 - Unspecified atrial flutter Status: Acute Assessment and Plan: [id number] 5. On Eliquis. Rate is controlled on Metoprolol. Stopped aspirin. Decrease Metoprolol Succinate 25 mg daily. Subjective Date/time seen: 10/23/21 08:09 Denies chest pain or sob. She has been able to sleep at an incline, and she normally sleeps in recliner. Exam Const: General: cooperative, healthy appearing and comfortable Nutritional Appearance: obese Resp: Auscultation: clear to auscultation bilaterally, no crackles, no rales, no rhonchi and no wheezes Cardio: Jugular venous distension: no JVD Rate: regular rate Rhythm: regular rhythm Heart sounds: no murmurs Peripheral pulses: dorsalis pedis present GI: GI Palp: No abdominal tenderness and Yes Soft to palpation Neuro: General: oriented to person, oriented to place and oriented to time Extrem: Right lower extremity: no edema Left lower extremity: no edema Objective Data Vital Signs Vital Signs: Vital Signs - 24 hr 10/22/21 10:51 10/22/21 12:00 10/22/21 12:56 Temperature 98.8 F Pulse Rate 108 H 75 Respiratory Rate 28 H Blood Pressure 91/75 L Pulse Oximetry 97 Oxygen Delivery Nasal Cannula Oxygen Flow Rate 1 10/22/21 13:52 10/22/21 13:20 10/22/21 10:00 Temperature Pulse Rate 81 Respiratory Rate Blood Pressure Pulse Oximetry 93 Oxygen Delivery Nasal Cannula Oxygen Flow Rate 1 1 10/22/21 12:00 10/22/21 14:00 10/22/21 12:00 Temperature Pulse Rate 78 71 Respiratory Rate Blood Pressure Pulse Oximetry 93 Oxygen Delivery Nasal Cannula Oxygen Flow Rate 1 10/22/21 16:00 10/22/21 16:00 10/22/21 16:00 Temperature 98.5 F Pulse Rate 74 72 Respiratory Rate 20 Blood Pressure 103/44 L Pulse Oximetry 93 97 Oxygen Delivery Nasal Cannula Oxygen Flow Rate 1 10/22/21 18:00 10/22/21 19:52 10/22/21 20:00 Temperature 98.3 F Pulse Rate 73 68 65 Respiratory Rate 20 Blood Pressure 102/40 L Pulse Oximetry 94 Oxygen Delivery Oxygen Flow Rate 10/22/21 20:00 10/22/21 22:00 10/22/21 23:44 Temperature 97.7 F Pulse Rate 68 76 76 Respiratory Rate 20 20 Blood Pressure 100/43 L Pulse Oximetry 94 94 Oxygen Delivery Nasal Cannula Oxygen Flow Rate 1 10/23/21 00:00 10/23/21 00:00 10/23/21 02:00 Temperature Pulse Rate 74 76
[2021-10-23] MEDS: APIXABAN 2.5 MG TABLET PO ×2 (08:36→21:09)
[2021-10-23] MEDS: FUROSEMIDE 20 MG TABLET PO ×2 (08:36→16:32)
[2021-10-23] MEDS: METOPROLOL SUCCINATE EXT REL 25 MG TABCR PO (09:02)
[2021-10-23] MEDS: SODIUM ZIRCONIUM CYCLOSILICATE 10 GM POWD.PACK PO ×2 (10:40→16:36)
--- NOTE | 2021-10-23 13:53 | PM.IMPN ---
Progress Note: A&P Assessment and Plan (1) CHF (congestive heart failure): Qualifiers: Heart failure chronicity: acute on chronic Heart failure type: diastolic Qualified Code(s): I50.33 - Acute on chronic diastolic (congestive) heart failure Code(s): I50.9 - Heart failure, unspecified Status: Acute Assessment and Plan: -CXR w/ pulmonary edema, BNP 13,500 -echo shows EF 55-60%, mild , mild-mod AI, mod MR, mod pulm hypertension -cardiology consulted -IV lasix 20 mg q12 hr per cardiology, switched to PO in preparation for discharge -stop spironolactone due to hyperkalemia w/ K of 5.4 and Cr 1.7 -10/22 reduced metoprolol from 100 to 50 daily today as she has been somewhat hypotensive. Reduced again today 10/23 to 25 mg daily as her bp is still soft in the 90s systolic range. -monitor renal function w/ daily (2) Elevated troponin: Code(s): R77.8 - Other specified abnormalities of plasma proteins Status: Acute Assessment and Plan: -baseline elevated at 0.074, peaked at 0.089 -likely secondary to volume overload -cardiology consulted, states symptoms do not suggest ACS (3) Acute and chronic respiratory failure with hypoxia: Code(s): J96.21 - Acute and chronic respiratory failure with hypoxia Status: Acute Assessment and Plan: -likely secondary to above -also likely has COPD w/ being a lifelong smoker, however had not previously been formerly diagnosed and does not use any maintenance inhalers -she is not wheezing so will hold off on steroids/nebs for the time being as I suspect her respiratory failure is most likely secondary to acute CHF -improving w/ diuresis -still intermittently requiring 1L NC to stay above 90%. Will diurese overnight and do home O2 eval in the AM. (4) Tobacco abuse: Code(s): Z72.0 - Tobacco use Status: Acute Assessment and Plan: -counseled on smoking cessation -tells me she is quitting -declines need for nicotine patch (5) JERRY (acute kidney injury): Code(s): N17.9 - Acute kidney failure, unspecified Status: Acute Assessment and Plan: -baseline renal function unknown -June 2020 creat was 0.89, December 2020 creat was 1.34 -on arrival here creat is 1.5, will monitor closely while diuresing -peaked at 1.7, down to 1.6 -continue to diurese as above, repeat BMP in the AM (6) Hyperkalemia: Code(s): E87.5 - Hyperkalemia Status: Acute Assessment and Plan: -slightly elevated at 5.4, does have JERRY w/ creat 1.7 -will give Lokelma -continue lasix 20 mg PO BID -resolved, K 4.2 today -repeat BMP in AM (7) Edema of both legs: Code(s): R60.0 - Localized edema Status: Acute Assessment and Plan: -likely due to CHF -bilateral venous dopplers negative -improving (8) Atrial flutter, paroxysmal: Code(s): I48.92 - Unspecified atrial flutter Status: Acute Assessment and Plan: -Rate is controlled on Metoprolol. -[id number] 5. Stop aspirin. Start Eliquis 2.5 mg BID. Subjective Date/time seen: 10/23/21 13:53 Interval history: 81 yo female w/ hx of HTN, diastolic CHF, mitral valve regurgitation, venous insufficiency, COPD, admitted for CHF exacerbation. Slowly doing better. BP is still soft. She is off of oxygen but sats drop to the high 80s at rest so they have been intermittently putting her back on 1L NC. She states her breathing is better. No cp. Review of Systems Review of Systems: All systems reviewed & are unremarkable except as noted in HPI and below Exam Narrative: General: No acute distress, chronically ill appearing, obese, elderly Eyes: PERRL, no scleral icterus HEENT: NCAT, external ears normal, dry mucous membranes Respiratory: Lungs sounds diminished bilaterally, no wheezing Cardiovascular: RRR, no murmur Abdominal: Soft, nontender, non distended, no rebound or
--- NOTE | 2021-10-23 16:15 | PCRCNOTE ---
RT did home 02 evaluation with patient. This patient tolerated ambulation to restroom and back on room air, lowest Sp02 was 88%. Patient does not qualify for home 02 at this time.
[2021-10-23] MEDS: traZODone HCL 50 MG TABLET 100 MG PO (21:09)
[2021-10-23] MEDS: DOXAZOSIN MESYLATE 4 MG TABLET 8 MG BY MOUTH (21:09)
[2021-10-24] VITALS (15 sets, daily range): BP systolic 95–118; BP diastolic 42–60; PULSE 60–83; RESP 16–30; TEMP 36.5–37.1; O2SAT 92–99
[2021-10-24 05:19] LABS: Basophils Percent Auto 0.3 % (0.2-1.2); Eosinophils Absolute Auto 0.1 K/mm3 (0-0.3); Eosinophils Percent Auto 1.3 % (0-4.4); Hematocrit 32.1 % (37.0-47.0); Hemoglobin 9.6 g/dL (12.0-15.0); Immature Granulocyte Absolute 0.02 K/mm3 (0.00-0.031); Immature Granulocyte Percent A 0.3 % (0-0.5); Lymphocytes Absolute Auto 0.59 K/mm3 (0.9-3.2); Lymphocytes Percent Auto 8.3 % (18.3-44.2); Mean Corpuscular HGB Conc 29.9 g/dl (32-36); Mean Corpuscular Hemoglobin 30.4 pg (26-34); Mean Corpuscular Volume 101.6 fl (80-100); Monocytes Absolute Auto 0.6 K/mm3 (0.1-0.6); Monocytes Percent Auto 8.2 % (2.6-8.5); Neutrophils Absolute Auto 5.8 K/mm3 (1.3-6.7); Neutrophils Percent Auto 81.6 % (45.5-73.1); Platelet Count Result 142 k/mm3 (150-375); Red Blood Count 3.16 M/mm3 (4.2-5.4); Red Cell Distribution Width 13.9 % (11.5-14.5); White Blood Count 7.1 K/mm3 (4.5-10.0)
[2021-10-24 05:27] LABS: Anion Gap 3 mmol/L (8-16); Blood Urea Nitrogen 30 mg/dL (7-17); Calcium 7.6 mg/dL (8.4-10.2); Carbon Dioxide 37 mmol/L (22-30); Chloride 99 mmol/L (98-107); Estimated CRCL calculation 32 ml/min; Estimated Glomerular Filt Rate 36; Glucose 93 mg/dL (65-110); Potassium 3.4 mmol/L (3.4-5.0); Sodium 139 mmol/L (137-145)
--- NOTE | 2021-10-24 07:57 | PM.PNCARD ---
Progress Note: A&P Assessment and Plan (1) Acute on chronic diastolic (congestive) heart failure: Code(s): I50.33 - Acute on chronic diastolic (congestive) heart failure Status: Acute Assessment and Plan: Improving. Echo shows EF 55-60%, mild , mild-mod AI, mod MR, mod pulm hypertension with RVSP 58 mmHg. Stopped Spironolactone due to hyperkalemia with potassium 5.4 and Cr 1.7/Cr Cl 26. Decreased Lasix 20 mg IV qd due to hypotension. Potassium low normal at 3.4, and Cr 1.4/Cr Cl 32. Monitor electrolytes and renal function. On Lasix 20 mg PO BID. Decrease Lasix 20 mg PO daily, and start Spironolactone 12.5 mg daily to enhance diuresis and for low normal potassium at 3.4 today. Have patient ambulate and if doing well may d/c home from cardiology standpoint to f/u with me in 1 week. (2) JERRY (acute kidney injury): Code(s): N17.9 - Acute kidney failure, unspecified Status: Acute (3) Hyperkalemia: Code(s): E87.5 - Hyperkalemia Status: Acute (4) Elevated troponin: Code(s): R77.8 - Other specified abnormalities of plasma proteins Status: Acute Assessment and Plan: Peaked at .089, likely due to type II infarct related to volume overload. Symptoms do not suggest ACS. (5) Tobacco abuse: Code(s): Z72.0 - Tobacco use Status: Acute Assessment and Plan: Counseled regarding smoking cessation. (6) Obesity: Code(s): E66.9 - Obesity, unspecified Status: Acute (7) Essential (primary) hypertension: Code(s): I10 - Essential (primary) hypertension Status: Acute Assessment and Plan: Hypotensive on 10/21/21. Stopped Lisinopril. (8) Atrial flutter, paroxysmal: Code(s): I48.92 - Unspecified atrial flutter Status: Acute Assessment and Plan: [id number] 5. On Eliquis. Rate is controlled on Metoprolol. Stopped aspirin. Decreased Metoprolol Succinate 25 mg daily. Subjective Date/time seen: 10/24/21 07:57 Denies chest pain or sob. Exam Const: General: cooperative, healthy appearing and comfortable Nutritional Appearance: obese Resp: Auscultation: clear to auscultation bilaterally, no crackles, no rales, no rhonchi and no wheezes Cardio: Jugular venous distension: no JVD Rate: regular rate Rhythm: regular rhythm Heart sounds: no murmurs Peripheral pulses: dorsalis pedis present GI: GI Palp: No abdominal tenderness and Yes Soft to palpation Neuro: General: oriented to person, oriented to place and oriented to time Extrem: Right lower extremity: no edema Left lower extremity: no edema Objective Data Vital Signs Vital Signs: Vital Signs - 24 hr 10/23/21 08:00 10/23/21 08:32 10/23/21 08:00 Temperature 98.5 F Pulse Rate 76 Respiratory Rate 12 Blood Pressure 109/43 L Pulse Oximetry 97 96 96 Oxygen Delivery Nasal Cannula Nasal Cannula Oxygen Flow Rate 1 1 10/23/21 08:00 10/23/21 10:00 10/23/21 11:54 Temperature 98.3 F Pulse Rate 78 66 84 Respiratory Rate 20 Blood Pressure 95/36 L Pulse Oximetry 94 Oxygen Delivery Oxygen Flow Rate 10/23/21 12:00 10/23/21 12:00 10/23/21 16:00 Temperature Pulse Rate 59 L 66 Respiratory Rate Blood Pressure Pulse Oximetry 96 92 Oxygen Delivery Nasal Cannula Room Air Oxygen Flow Rate 1 10/23/21 16:05 10/23/21 16:15 10/23/21 16:00 Temperature 98.0 F Pulse Rate 72 79 65 Respiratory Rate 16 Blood Pressure 104/49 L Pulse Oximetry 88 L 90 93 Oxygen Delivery Room Air Room Air Oxygen Flow Rate 10/23/21 16:00 10/23/21 14:00 10/23/21 16:00 Temperature Pulse Rate 55 L 63 Respiratory Rate Blood Pressure Pulse Oximetry 96 Oxygen Delivery Nasal Cannula Oxygen Flow Rate 1 10/23/21 18:00 10/23/21 20:00 10/23/21 20:00 Temperature 97.9 F Pulse Rate 84 80 Respiratory Rate 16 Blood Pressure 101/60 Pulse Oximetry 96 97 Oxygen Delivery Nasal Cannula Oxygen Flow Rate 1
[2021-10-24] MEDS: METOPROLOL SUCCINATE EXT REL 25 MG TABCR PO (09:24)
[2021-10-24] MEDS: APIXABAN 2.5 MG TABLET PO ×2 (09:24→21:11)
[2021-10-24] MEDS: FUROSEMIDE 20 MG TABLET PO (09:24)
[2021-10-24] MEDS: SPIRONOLACTONE 12.5 MG TABLET PO (09:24)
--- NOTE | 2021-10-24 14:20 | PM.IMPN ---
Progress Note: A&P Assessment and Plan (1) CHF (congestive heart failure): Qualifiers: Heart failure chronicity: acute on chronic Heart failure type: diastolic Qualified Code(s): I50.33 - Acute on chronic diastolic (congestive) heart failure Code(s): I50.9 - Heart failure, unspecified Status: Acute Assessment and Plan: -CXR w/ pulmonary edema and elevated BNP on admission. She has been diuresed and we will recheck a CXR in AM. -echo shows EF 55-60%, mild , mild-mod AI, mod MR, mod pulm hypertension -cardiology has already consulted and changes to medications have been made to decrease Lasix to 25 daily po and Aldactone 12.5 daily was added. -Continue Metoprolol 25 mg po Daily in AM. -Monitor labs and VS. (2) Elevated troponin: Code(s): R77.8 - Other specified abnormalities of plasma proteins Status: Acute Assessment and Plan: -baseline elevated at 0.074, peaked at 0.089 -likely secondary to volume overload and demand ischemia. -cardiology consulted, states symptoms do not suggest ACS (3) Acute and chronic respiratory failure with hypoxia: Code(s): J96.21 - Acute and chronic respiratory failure with hypoxia Status: Acute Assessment and Plan: -2/2 CHF, COPD -she is not wheezing so will hold off on steroids/nebs for the time being as I suspect her respiratory failure is most likely secondary to acute CHF -improving w/ diuresis -Home oxygen evaluation was performed and pt. does not meet criteria for home oxygen. - Supplemental oxygen has been discontinued. (4) Tobacco abuse: Code(s): Z72.0 - Tobacco use Status: Acute Assessment and Plan: -counseled on smoking cessation - declines need for nicotine patch (5) JERRY (acute kidney injury): Code(s): N17.9 - Acute kidney failure, unspecified Status: Acute Assessment and Plan: -baseline renal function unknown -June 2020 creat was 0.89, December 2020 creat was 1.34 - Peak Creatinine here is 1.7. She is trending down and today is 1.4. - Will check Metabolic panel in AM prior to discharge. - Avoid as many renal offending agents as possible. (6) Hyperkalemia: Code(s): E87.5 - Hyperkalemia Status: Resolved Assessment and Plan: -Initially elevated on admission. -Lasix was de-escalated in dose and Potassium is normal now. -repeat BMP in AM right before discharge. (7) Edema of both legs: Code(s): R60.0 - Localized edema Status: Acute Assessment and Plan: -likely due to CHF -bilateral venous dopplers negative -improving (8) Atrial flutter, paroxysmal: Code(s): I48.92 - Unspecified atrial flutter Status: Acute Assessment and Plan: -Rate is controlled on Metoprolol. -[id number] 5. Stop aspirin. Start Eliquis 2.5 mg BID. Subjective Date/time seen: 10/24/21 0730 This pt. was examined at the bedside today in interval asssessment after being admitted to the hospital with new onset atrial flutter and CHF. She was started on Metoprolol and it was de-escalated in dose secondary to her BP being soft. She has continued to have good diuresis, however, she has continued lower pressures and this afternoon she is having some mild tachypnea at 28 breaths per minute as compared to 16 per minute when I saw her this morning. She denies any overt feeling of dyspnea and she has not had any cough. She has been able to be weaned from her oxygen and does not meet criteria for home oxygen. In addition, she has had negative Bilateral Venous dopplers. Changes to her medications were made today by Cardiology. Therefore, will hold off on discharge today to re-evaluate her respiratory status and her response to overall therapy that was changed today with decreasing the doses of medications for preparation for discharge. For me she denies any CP, N/V/D. Review of Systems Review of Systems: All systems reviewed & are unrema
[2021-10-24] MEDS: SODIUM ZIRCONIUM CYCLOSILICATE 10 GM POWD.PACK PO (17:18)
[2021-10-24] MEDS: traZODone HCL 50 MG TABLET 100 MG PO (21:11)
[2021-10-25] VITALS (7 sets, daily range): BP systolic 91–104; BP diastolic 41–77; PULSE 69–77; RESP 12–18; TEMP 36.4–36.6; O2SAT 94–98
[2021-10-25 06:20] LABS: Basophils Percent Auto 0.4 % (0.2-1.2); Eosinophils Absolute Auto 0.1 K/mm3 (0-0.3); Eosinophils Percent Auto 1.4 % (0-4.4); Hematocrit 32.4 % (37.0-47.0); Hemoglobin 9.6 g/dL (12.0-15.0); Immature Granulocyte Absolute 0.02 K/mm3 (0.00-0.031); Immature Granulocyte Percent A 0.3 % (0-0.5); Lymphocytes Absolute Auto 0.62 K/mm3 (0.9-3.2); Lymphocytes Percent Auto 8.8 % (18.3-44.2); Mean Corpuscular HGB Conc 29.6 g/dl (32-36); Mean Corpuscular Hemoglobin 30.1 pg (26-34); Mean Corpuscular Volume 101.6 fl (80-100); Mean Platelet Volume 10.8 fl (7.4-10.4); Monocytes Absolute Auto 0.7 K/mm3 (0.1-0.6); Monocytes Percent Auto 9.2 % (2.6-8.5); Neutrophils Absolute Auto 5.6 K/mm3 (1.3-6.7); Neutrophils Percent Auto 79.9 % (45.5-73.1); Platelet Count Result 153 k/mm3 (150-375); Red Blood Count 3.19 M/mm3 (4.2-5.4); Red Cell Distribution Width 13.9 % (11.5-14.5)
[2021-10-25 07:01] LABS: Alanine Aminotransferase 18 U/L (6-35); Albumin Level 3.5 g/dL (3.5-5.1); Alkaline Phosphatase 88 U/L (38-126); Anion Gap 6 mmol/L (8-16); Aspartate Amino Transferase 23 U/L (14-36); Blood Urea Nitrogen 28 mg/dL (7-17); Calcium 7.6 mg/dL (8.4-10.2); Carbon Dioxide 32 mmol/L (22-30); Chloride 99 mmol/L (98-107); Estimated CRCL calculation 37 ml/min; Estimated Glomerular Filt Rate 43; Glucose 85 mg/dL (65-110); Magnesium 2.3 mg/dL (1.6-2.3); Potassium 3.8 mmol/L (3.4-5.0); Sodium 137 mmol/L (137-145)
[2021-10-25 07:14] LABS: Bilirubin,Total 0.7 mg/dL (0.2-1.3)
--- NOTE | 2021-10-25 07:44 | PM.PNCARD ---
Progress Note: A&P Assessment and Plan (1) Acute on chronic diastolic (congestive) heart failure: Code(s): I50.33 - Acute on chronic diastolic (congestive) heart failure Status: Acute Assessment and Plan: Improving. Echo shows EF 55-60%, mild , mild-mod AI, mod MR, mod pulm hypertension with RVSP 58 mmHg. Stopped Spironolactone due to hyperkalemia with potassium 5.4 and Cr 1.7/Cr Cl 26. Decreased Lasix 20 mg IV qd due to hypotension. Potassium normal at 3.8, and Cr 1.2/Cr Cl 37. Monitor electrolytes and renal function. On Lasix 20 mg PO daily and on Spironolactone 12.5 mg daily to enhance diuresis. Have patient ambulate and if doing well may d/c home from cardiology standpoint to f/u with me in 1 week. (2) JERRY (acute kidney injury): Code(s): N17.9 - Acute kidney failure, unspecified Status: Acute (3) Elevated troponin: Code(s): R77.8 - Other specified abnormalities of plasma proteins Status: Acute Assessment and Plan: Peaked at .089, likely due to type II infarct related to volume overload. Symptoms do not suggest ACS. (4) Tobacco abuse: Code(s): Z72.0 - Tobacco use Status: Acute Assessment and Plan: Counseled regarding smoking cessation. (5) Obesity: Code(s): E66.9 - Obesity, unspecified Status: Acute (6) Essential (primary) hypertension: Code(s): I10 - Essential (primary) hypertension Status: Acute Assessment and Plan: Low normal BP. Stopped Lisinopril. Low dose Metoprolol succinate 25 mg daily. (7) Atrial flutter, paroxysmal: Code(s): I48.92 - Unspecified atrial flutter Status: Acute Assessment and Plan: [id number] 5. On Eliquis. Rate is controlled on Metoprolol. Stopped aspirin. Decreased Metoprolol Succinate 25 mg daily. Subjective Date/time seen: 10/25/21 07:44 Denies chest pain or sob. Exam Const: General: cooperative, healthy appearing and comfortable Nutritional Appearance: obese Resp: Auscultation: clear to auscultation bilaterally, no crackles, no rales, no rhonchi and no wheezes Cardio: Jugular venous distension: no JVD Rate: regular rate Rhythm: regular rhythm Heart sounds: no murmurs Peripheral pulses: dorsalis pedis present GI: GI Palp: No abdominal tenderness and Yes Soft to palpation Neuro: General: oriented to person, oriented to place and oriented to time Extrem: Right lower extremity: no edema Left lower extremity: no edema Objective Data Vital Signs Vital Signs: Vital Signs - 24 hr 10/24/21 08:00 10/24/21 08:00 10/24/21 12:00 Temperature 98.2 F 98.0 F Pulse Rate 81 67 Respiratory Rate 16 28 H Blood Pressure 118/51 L 108/50 L Pulse Oximetry 97 97 97 Oxygen Delivery Nasal Cannula Oxygen Flow Rate 1 10/24/21 08:00 10/24/21 14:00 10/24/21 12:00 Temperature Pulse Rate 74 64 Respiratory Rate Blood Pressure Pulse Oximetry 97 Oxygen Delivery Nasal Cannula Oxygen Flow Rate 1 10/24/21 12:00 10/24/21 10:00 10/24/21 16:00 Temperature 98.7 F Pulse Rate 60 69 69 Respiratory Rate 30 H Blood Pressure 97/42 L Pulse Oximetry 92 Oxygen Delivery Oxygen Flow Rate 10/24/21 16:00 10/24/21 16:00 10/24/21 18:00 Temperature Pulse Rate 65 72 Respiratory Rate Blood Pressure Pulse Oximetry 97 Oxygen Delivery Nasal Cannula Oxygen Flow Rate 1 10/24/21 19:31 10/24/21 20:00 10/24/21 20:00 Temperature 98.4 F Pulse Rate 82 82 68 Respiratory Rate 20 20 Blood Pressure 96/48 L Pulse Oximetry 94 94 Oxygen Delivery Nasal Cannula Oxygen Flow Rate 1 10/24/21 22:00 10/24/21 22:54 10/25/21 00:00 Temperature 98.0 F Pulse Rate 70 83 71 Respiratory Rate 20 Blood Pressure 95/60 L Pulse Oximetry 97 Oxygen Delivery Oxygen Flow Rate 10/25/21 00:00 10/25/21 02:00 10/25/21 03:31 Temperature Pulse Rate 76 72 74 Respiratory Rate 18 16 Blood Pressure Pulse Oximetr
--- NOTE | 2021-10-25 09:31 | PM.DS ---
DS: Admitting Diagnosis Discharge Date 10/25/2021 Admitting Diagnosis CHF exacerbation DS: Discharge Diagnosis Discharge Diagnosis (1) Acute and chronic respiratory failure with hypoxia: Code(s): J96.21 - Acute and chronic respiratory failure with hypoxia Status: Resolved Assessment and Plan: Secondary to CHF - She required up to 2 L supplemental O2 however no documented episodes of hypoxia - Resolved with diuresis. - Home O2 eval completed and patient does not meet criteria for home oxygen. (2) CHF (congestive heart failure): Qualifiers: Heart failure chronicity: acute on chronic Heart failure type: diastolic Qualified Code(s): I50.33 - Acute on chronic diastolic (congestive) heart failure Code(s): I50.9 - Heart failure, unspecified Status: Acute Assessment and Plan: Presented with progressive shortness of breath for several weeks - CXR w/ pulmonary edema and elevated BNP on admission. - Seen in consultation by Cardiology - She was appropriately diuresed with symptomatic improvement - Echo showed EF 55-60%, mild , mild-mod AI, mod MR, mod pulm hypertension - Continue Lasix 20 mg daily - Spironolactone decreased to 12.5 mg daily - Metoprolol succinate decreased to 25 mg daily to accommodate lower blood pressures. BP stable on this regimen (3) Elevated troponin: Code(s): R77.8 - Other specified abnormalities of plasma proteins Status: Acute Assessment and Plan: Peaked at 0.089 - Likely secondary to volume overload and demand ischemia. - Cardiology consulted, not felt to be consistent with ACS (4) Tobacco abuse: Code(s): Z72.0 - Tobacco use Status: Acute Assessment and Plan: Patient educated on smoking cessation. - Declined need for nicotine patch (5) JERRY (acute kidney injury): Code(s): N17.9 - Acute kidney failure, unspecified Status: Acute Assessment and Plan: Review of prior labs suggest baseline to be around 1.3 - Creatinine fluctuant during admission with increase up to 1.7 - Downward trend. 1.2 at time of discharge - Repeat BMP in 1 week to ensure remaining stable with medication changes (6) Hyperkalemia: Code(s): E87.5 - Hyperkalemia Status: Resolved Assessment and Plan: Potassium elevated up to 5.4 - Spironolactone initially stopped and then added back at lower dose - Continue Lasix - Improved with daily Lokelma 10 g - Repeat BMP in 1 week to ensure remaining stable. (7) Edema of both legs: Code(s): R60.0 - Localized edema Status: Acute Assessment and Plan: Likely due to CHF -bilateral venous dopplers negative -improved with diuresis (8) Atrial flutter, paroxysmal: Code(s): I48.92 - Unspecified atrial flutter Status: Acute Assessment and Plan: Rate controlled on Metoprolol. -[id number] 5. - Seen by cardiology - Aspirin discontinued - Started low dose Eliquis 2.5 mg BID. DS: Summary Hospital Course Hospital Course: Date of admission: 10/20/2021 Date of discharge: 10/25/2021 She was admitted to the hospitalist service for further evaluation and management. She was seen in consultation by cardiology. Please see above for further details. She was diuresed appropriately with symptomatic improvement. Diuresis was limited by relative hypotension. She was taken off of her lisinopril and metoprolol was decreased to 25 mg daily. Additionally, she had issues with hyperkalemia during admission, therefore spironolactone was initially discontinued and then restarted at a decreased dose with potassium lowering therapy. She will continue with Lokelma daily and will have repeat BMP in 1 week to monitor her potassium as well as ensure stable renal function with diuretics. She was placed on supplemental oxygen during admission without any episodes of hypoxia. Home O2 evaluation was completed on 10/23/2021 and patient
[2021-10-25] MEDS: METOPROLOL SUCCINATE EXT REL 25 MG TABCR PO (09:53)
[2021-10-25] MEDS: SPIRONOLACTONE 12.5 MG TABLET PO (09:54)
[2021-10-25] MEDS: APIXABAN 2.5 MG TABLET PO (09:54)
[2021-10-25] MEDS: FUROSEMIDE 20 MG TABLET PO (09:54)
== END 2021-10-25 10:59 | disposition home health service (06) | DRG 291 ==
LOC: ANHED 12:14 → ANHIMU 13:08
PROVIDERS: Nurse Practitioner Adult Health; Physician Assistant; Admitting Provider Internal Medicine; Emergency Provider Emergency Medicine; PCP Family Medicine; Visit Provider Family Medicine
DX: I11.0 Hypertensive heart disease with heart failure (principal); I50.33 Acute on chronic diastolic (congestive) heart failure; J96.21 Acute and chronic respiratory failure with hypoxia; N17.9 Acute kidney failure, unspecified; I48.92 Unspecified atrial flutter; Z20.822 Contact with and (suspected) exposure to COVID-19; R77.8 Other specified abnormalities of plasma proteins; Z72.0 Tobacco use; E87.5 Hyperkalemia; R60.0 Localized edema; I87.8 Other specified disorders of veins; L30.9 Dermatitis, unspecified; I10 Essential (primary) hypertension; I27.20 Pulmonary hypertension, unspecified; M19.91 Primary osteoarthritis, unspecified site; Z79.899 Other long term (current) drug therapy; Z80.1 Family history of malignant neoplasm of trachea, bronchus and lung
CPT/HCPCS: 36415; 36600; 71045; 71046; 80048; 80053; 82375; 82805; 83050; 83735; 83880; 84484; 85025; 85610; 85730; 87426; 93005; 93306; 93970; 94618; 96374; 96376; 97161; 97165; 97530; 97535; 99285; A9270; C9803; G0378; J1940; J7050

== ENCOUNTER 2021-10-27 11:41 | Inpatient (IN) | payer MEDICARE, SELFPAY ==
[2021-10-27] VITALS (8 sets, daily range): BP systolic 126–147; BP diastolic 55–78; PULSE 86–108; RESP 20–46; TEMP 36.3–37.1; O2SAT 88–98
--- NOTE | ~2021-10-27 | XR_ITS ---
EXAMINATION: XR chest 1V portable DATE: 11/01/2021 15:19 INDICATION: Shortness of breath. TECHNIQUE: A single frontal view of the chest was obtained. COMPARISON: Chest 2 views 10/27/2021, chest CT 10/27/2021 FINDINGS: There is a large hiatal hernia. There are airspace opacities in the mid and lower lung zone s. No pleural effusion or pneumothorax. Cardiomegaly is noted. IMPRESSION: 1. Worsened airspace opacities in the mid and lower lung zones, consistent with atelectasis or less l ikely pneumonia. 2. Large hiatal hernia. 3. Cardiomegaly. Reviewed, dictated and finalized at location A. IMPRESSION: 1. Worsened airspace opacities in the mid and lower lung zones, consistent with atelectasis or less likely pneumonia. 2. Large hiatal hernia. 3. Cardiomegaly.
--- NOTE | ~2021-10-27 | XR_ITS ---
XR chest 2V 10/27/2021 12:35 Indication: Shortness of breath Procedure: 2 view chest Comparison: 10/24/2011 Findings: Cardiomegaly with mild interstitial edema. Large hiatal hernia. Possible small effusion. No pneumothorax. Impression: 1: Cardiomegaly with interstitial edema. 2: Large hiatal hernia. Reviewed, dictated and finalized at location A. Impression: 1: Cardiomegaly with interstitial edema. 2: Large hiatal hernia.
--- NOTE | ~2021-10-27 | CT_ITS ---
EXAMINATION: CTA chest PE protocol DATE: 10/27/2021 16:08 INDICATION: Shortness of breath. History of COPD, congestive heart failure. Smoker. TECHNIQUE: Computed tomography angiography (CTA) of the chest was performed with 100 mL Omnipaque-350 intravenous contrast timed to evaluate the pulmonary arteries. Coronal maximum intensity projection 3D-reconstructions were created by the technologist. Automated exposure control and iterative reconst ruction technique were employed. Exam dose: 664.03 mGy-cm total exam DLP. COMPARISON: 10/27/2021 2 view chest FINDINGS: There is diagnostic contrast enhancement of the pulmonary arteries and no evidence of pulmo nary embolism. There is atherosclerotic calcification of the thoracic aorta, great vessels and coronary arteries. No thoracic aortic aneurysm or dissection. Cardiomegaly. There is reflux of contrast material into the inferior vena cava suggesting right ventr icular dysfunction. No pericardial effusion. Minimal pleural effusions. No hilar or mediastinal mass lesion or lymphadenopathy. Large hiatal hernia containing much of the stomach. There is prominent bibasilar atelectasis. The lungs otherwise appear clear. Multiple diverticula of the splenic flexure of the colon are noted. Degenerative changes of the lower cervical and thoracic spine. Osteopenia. No suspicious osteolytic o r osteoblastic lesions are noted. IMPRESSION: No evidence of pulmonary embolism Cardiomegaly, reflux of contrast material into the inferior vena cava, suggesting right ventricular d ysfunction Small pleural effusions Prominent bibasilar atelectasis Reviewed, dictated and finalized at Location A. Reviewed, dictated and finalized at location A. IMPRESSION: No evidence of pulmonary embolism Cardiomegaly, reflux of contrast material into the inferior vena cava, suggesti ng right ventricular dysfunction Small pleural effusions Prominent bibasilar atelectasis
--- NOTE | ~2021-10-27 | XR_ITS ---
EXAMINATION: XR chest 1V portable Exam Date/Time: 11/05/2021 11:10 CDT HISTORY: Hypercapnia Comparison: 11/01/2021. RESULT: Lines, tubes, and devices: None. Lungs and pleura: Decreased reticular opacities may reflect improving interstitial edema. Increased o pacification in the left base, with increasing left and stable right costophrenic angle blunting. Lar ge hiatal/diaphragmatic hernia. Cardiomediastinal silhouette: Stable cardiomediastinal silhouette. Other: No acute osseous or upper abdominal finding. IMPRESSION: Worsening atelectasis/consolidation in left lung base, with worsening left pleural effusion. Reviewed, dictated and finalized at location K. IMPRESSION: Worsening atelectasis/consolidation in left lung base, with worsening left pleu ral effusion.
--- NOTE | 2021-10-27 12:08 | ECG_ITS ---
Measurements Intervals [place] Rate: 100 P: NH: 0 QRS: -34 QRSD: 130 T: 76 QT: 352 QTc: 454 Interpretive Statements ATRIAL FLUTTER/TACHYCARDIA WITH RAPID VENTRICULAR RESPONSE LEFT AXIS DEVIATION LEFT BUNDLE BRANCH BLOCK ANTEROSEPTAL INFARCT OR DUE TO LBBB BASELINE ARTIFACT- I, II, III, AVR, AVL, AVF, V1-V2 ABNORMAL ECG Electronically Signed On 10-27-2021 15:33:43 CDT by Patrick Polo D.O.
[2021-10-27 12:19] LABS: Basophils Percent Auto 0.1 % (0.2-1.2); Hematocrit 33.7 % (37.0-47.0); Hemoglobin 10.4 g/dL (12.0-15.0); Immature Granulocyte Absolute 0.07 K/mm3 (0.00-0.031); Immature Granulocyte Percent A 0.6 % (0-0.5); Lymphocytes Absolute Auto 0.33 K/mm3 (0.9-3.2); Lymphocytes Percent Auto 2.7 % (18.3-44.2); Mean Corpuscular HGB Conc 30.9 g/dl (32-36); Mean Corpuscular Hemoglobin 30.1 pg (26-34); Mean Corpuscular Volume 97.4 fl (80-100); Mean Platelet Volume 10.8 fl (7.4-10.4); Monocytes Absolute Auto 1.2 K/mm3 (0.1-0.6); Monocytes Percent Auto 9.6 % (2.6-8.5); Neutrophils Absolute Auto 10.7 K/mm3 (1.3-6.7); Platelet Count Result 163 k/mm3 (150-375); Red Blood Count 3.46 M/mm3 (4.2-5.4); Red Cell Distribution Width 14.3 % (11.5-14.5); White Blood Count 12.3 K/mm3 (4.5-10.0)
[2021-10-27 13:01] LABS: Alveolar/Arterial O2 Gradient 35.7 mmHg; Base Excess ABG 7.4 mEq/l (+/-2.0); Carboxyhemoglobin 0.3 % THb (0-2.0); Fractional Inspired Oxygen 28 %; Methemoglobin ABG 0.4 %THb (0-1.5); Modified Allen's Test Pass; Oxygen Content ABG 15.3 %vol (16.0-22.0); Oxygen Saturation ABG 97.7 % (95.0-100.0); Oxyhemoglobin 96.3 % THb (90.0-100.0); PCO2 ABG 51.7 mmHg (35.0-45.0); PO2 ABG 102.9 mmHg (80.0-100.0); PO2 FiO2 Ratio Arterial Blood 3.67 %; Site Drawn RIGHT RADIAL; Total Hemoglobin 11.2 g/dL (12.0-18.0); pH ABG 7.423 (7.350-7.450)
[2021-10-27 13:05] LABS: Alanine Aminotransferase 17 U/L (6-35); Albumin Level 3.8 g/dL (3.5-5.1); Alkaline Phosphatase 100 U/L (38-126); Anion Gap 4 mmol/L (8-16); Aspartate Amino Transferase 19 U/L (14-36); Blood Urea Nitrogen 22 mg/dL (7-17); Calcium 8.1 mg/dL (8.4-10.2); Carbon Dioxide 36 mmol/L (22-30); Chloride 98 mmol/L (98-107); Estimated CRCL calculation 39 ml/min; Estimated Glomerular Filt Rate 48; Glucose 146 mg/dL (65-110); Potassium 3.3 mmol/L (3.4-5.0); Sodium 138 mmol/L (137-145)
--- NOTE | 2021-10-27 13:43 | ED.SOB ---
HPI - SOB/Dyspnea General Chief Complaint: Shortness of Breath/Dyspnea Stated Complaint: sob Time Seen by Provider: 10/27/21 12:06 History of Present Illness HPI Narrative: Is a 81-year-old female who presents ER with shortness of breath. Worsening over the last day. Patient was just discharged from hospital 2 days ago after being admitted for heart failure exacerbation. Patient found to be hypoxic upon arrival to the ER. Patient denies chest pain but is having some back discomfort. No numbness or tingling. She has not fallen or struck her head. Shortness of breath is worse with lying down. She reports she was noncompliant with home medications last night and she is unsure if she takes a water pill in the evening. She is unsure if she has any new weight gain is unsure if her leg edema is worse than typical. Related Data Home Medications Medication Instructions Recorded Confirmed acetaminophen 500 mg tablet 500 mg PO Q4H PRN Pain (Scale 03/13/19 10/27/21 (Tylenol Extra Strength) Score 1-3) doxazosin 8 mg tablet (Cardura) 8 mg PO HS 10/20/21 10/27/21 trazodone 100 mg tablet 100 mg PO HS 10/20/21 10/27/21 furosemide 20 mg tablet 20 mg PO DAILY 10/27/21 10/27/21 Allergies Allergy/AdvReac Type Severity Reaction Status Date / Time Penicillins Allergy Unknown Unknown Verified 10/27/21 11:53 TIDE SOAP Allergy Mild Rash Uncoded 10/27/21 11:53 Review of Systems Review of Systems: All systems reviewed & are unremarkable except as noted in HPI and below Constitutional: Constitutional: Denies chills, Reports fatigue and Denies fever(s) Cardiovascular: Cardiovascular: Denies chest pain, Denies rapid heart rate and Denies radiating jaw, neck or arm pain Respiratory: Respiratory: Denies cough, Reports dyspnea and Denies wheezing Gastrointestinal: Gastrointestinal: Denies abdominal pain, Denies nausea and Denies vomiting Musculoskeletal: Musculoskeletal: Reports back pain, Denies arthralgias and Denies joint swelling [facility] Past Medical History Medical History (Updated 10/27/21 @ 21:30 by Donny Vo MD) Chronic kidney disease, stage 3 Chronic low back pain without sciatica Diastolic congestive heart failure Ejection fraction 55 to 60% on echo in October 2021 Essential (primary) hypertension Insomnia Moderate mitral valve regurgitation Paroxysmal atrial flutter Pulmonary hypertension Echocardiogram on 10/20/2021 showed moderate pulmonary hypertension with a PASP of 58 mmHg. Unspecified osteoarthritis, unspecified site Surgical History Surgical History (Updated 10/27/21 @ 20:15 by Savi Vazquez PA-C) History of (1976) History of cholecystectomy (10/2014) History of hysterectomy (2003) 2004 History of removal of cyst Axilla, in the . History of right cataract surgery Family History Family History Father Hypertension Mother Hypertension Father Family history of lung cancer Other Diabetes mellitus Family history of allergic disorder Family history of cardiovascular disease Family history of malignant neoplasm Family history of tuberculosis Social History Social History (Updated 10/27/21 @ 20:15 by Savi Vazquez PA-C) Social History: Surrogate decision maker: Hung Noe, son. Code status: Full code. Smoking packs per day: 0.75 Smoking cigarettes per day: 15.0 Years smoked: 50 Smoking pack-years: 37.50 Smoking status: Current every day smoker Second hand tobacco smoke exposure: Yes Alcohol intake: current Substance use: never Substance use type: does not use Other substance usage details: a beer every month Additional living arrangements comments: The patient lives in her own home. Her son Hung lives with her. Spiritual care concerns: No Exam Narrative: GENERAL: Chronically ill-appearing, well-nourished, and in mild distress. HEAD: Normocephalic, atraumatic. NECK
[2021-10-27] MEDS: FUROSEMIDE INJ 40 MG/4 ML VIAL IV PUSH ×2 (14:02→20:33)
[2021-10-27 15:11] LABS: NT Pro B Type Natriuretic Pept 8330 pg/mL (5-100)
--- NOTE | 2021-10-27 15:50 | PM.IMHP ---
H&P: HPI History of Present Illness Date/Time: 10/27/21 15:50 Chief Complaint: Shortness of breath. Narrative: This is a 81-year-old female smoker with hypertension, diastolic dysfunction, and paroxysmal atrial flutter who presented to the ER via private vehicle from home for evaluation of shortness of breath. She was discharged from this facility on 10/25/2021 after a week-long stay in which she was treated for congestive heart failure after presenting with shortness of breath. She felt ?pretty good? on day of discharge however yesterday she once again started to feel increasingly short of breath with worsening chronic lower extremity edema and orthopnea. Initially she stated compliance with her medications however admits that she missed some of them last evening though she cannot tell me exactly which medication she may have missed. Her SpO2 was 88% on room air on arrival today and due to her oxygen requirement she is being admitted overnight. She did have a home O2 evaluation prior to her recent discharge and she had no oxygen requirement at that time. CTA of the chest showed no evidence of pulmonary embolism, small bilateral pleural effusions, and prominent bibasilar atelectasis. She was also noted to have a large hiatal hernia containing much of the stomach and on exam she is noted to take very shallow, rapid breaths. I called this to her attention and she tells me that she never really noticed that and she denies feeling short of breath at this time. She also denies fever, chills, sweats, chest pain, pleuritic pain, nausea, and vomiting. Review of Systems Review of Systems: Twelve systems were reviewed. She has chronic sinus issues which have been unchanged. No cough. No sick contacts. No palpitations. She has chronic orthopnea and has slept in a recliner for quite some time. She complains of mild back discomfort from the [place]. Except as documented, all other systems were reviewed and are negative. [facility] Past Medical History Medical History (Updated 10/27/21 @ 20:29 by Savi Vazquez PA-C) Chronic kidney disease, stage 3 Chronic low back pain without sciatica Diastolic congestive heart failure Ejection fraction 55 to 60% on echo in October 2021 Essential (primary) hypertension Insomnia Moderate mitral valve regurgitation Paroxysmal atrial flutter Pulmonary hypertension Echocardiogram on 10/20/2021 showed moderate pulmonary hypertension with a PASP of 58 mmHg. Unspecified osteoarthritis, unspecified site Surgical History Surgical History (Updated 10/27/21 @ 20:15 by Savi Vazquez PA-C) History of (1976) History of cholecystectomy (10/2014) History of hysterectomy (2003) 2004 History of removal of cyst Axilla, in the . History of right cataract surgery Family History Family History Father Hypertension Mother Hypertension Father Family history of lung cancer Other Diabetes mellitus Family history of allergic disorder Family history of cardiovascular disease Family history of malignant neoplasm Family history of tuberculosis Social History Social History (Updated 10/27/21 @ 20:15 by Savi Vazquez PA-C) Social History: Surrogate decision maker: Hung Noe, son. Code status: Full code. Smoking packs per day: 0.75 Smoking cigarettes per day: 15.0 Years smoked: 50 Smoking pack-years: 37.50 Smoking status: Current every day smoker Second hand tobacco smoke exposure: Yes Alcohol intake: current Substance use: never Substance use type: does not use Other substance usage details: a beer every month Additional living arrangements comments: The patient lives in her own home. Her son Hung lives with her. Spiritual care concerns: No Meds Home Medications and Allergies Home Medications Medication Instructions Recorded Confirmed Type acetaminophen 500 mg tablet 500 mg PO Q4H PRN P
[2021-10-27 17:35] LABS: SARS-CoV-2 RNA PCR Negative
--- NOTE | 2021-10-27 17:51 | PC.NURSE ---
spoke with provider regarding frequency of lasix. ok to give tonight around 2100.
--- NOTE | 2021-10-27 19:39 | ADMGEN ---
This patient, Sarah Beth Stafford, was admitted to [address] [place] [address] Room 305-02 at 1855. Patient/family oriented to hospital policies and general routines including ID bracelet, bed and alarms, visiting hours, pain management, procedures, bathroom and other care routines, personal items, smoking policy, room service/diet, and visiting hours. Information on how to activate the Rapid Response Team has been discussed. Patient/Family are encouraged to report perceived risks to care and to ask questions if they do not understand what they are told or what they should do.
--- NOTE | 2021-10-27 19:57 | ADMGEN ---
This patient, Sarah Beth Stafford, was admitted to [facility] Surg Room 305-02 @ 1940. Patient/family oriented to hospital policies and general routines including ID bracelet, bed and alarms, visiting hours, pain management, procedures, bathroom and other care routines, personal items, smoking policy, room service/diet, and visiting hours. Information on how to activate the Rapid Response Team has been discussed. Patient/Family are encouraged to report perceived risks to care and to ask questions if they do not understand what they are told or what they should do.
[2021-10-27] MEDS: traZODone HCL 50 MG TABLET 100 MG PO (21:36)
[2021-10-27] MEDS: DOXAZOSIN MESYLATE 4 MG TABLET 8 MG PO (21:37)
[2021-10-27] MEDS: APIXABAN 2.5 MG TABLET PO (21:37)
[2021-10-27] MEDS: POTASSIUM CHLORIDE 20 MEQ TABLET 40 MEQ PO (21:38)
[2021-10-28] VITALS (8 sets, daily range): BP systolic 106–122; BP diastolic 51–60; PULSE 84–92; RESP 20–26; TEMP 36.1–36.2; O2SAT 92–96
[2021-10-28 06:50] LABS: Hematocrit 30.2 % (37.0-47.0); Hemoglobin 9.6 g/dL (12.0-15.0); Mean Corpuscular HGB Conc 31.8 g/dl (32-36); Mean Corpuscular Hemoglobin 30.9 pg (26-34); Mean Corpuscular Volume 97.1 fl (80-100); Mean Platelet Volume 10.5 fl (7.4-10.4); Platelet Count Result 142 k/mm3 (150-375); Red Blood Count 3.11 M/mm3 (4.2-5.4); Red Cell Distribution Width 14.3 % (11.5-14.5); White Blood Count 9.2 K/mm3 (4.5-10.0)
[2021-10-28 07:00] LABS: Blood Urea Nitrogen 24 mg/dL (7-17); Calcium 7.8 mg/dL (8.4-10.2); Carbon Dioxide > 40 mmol/L (22-30); Chloride 97 mmol/L (98-107); Estimated CRCL calculation 36 ml/min; Estimated Glomerular Filt Rate 43; Glucose 91 mg/dL (65-110); Potassium 3.6 mmol/L (3.4-5.0); Sodium 140 mmol/L (137-145)
[2021-10-28] MEDS: SPIRONOLACTONE 12.5 MG TABLET PO (09:14)
[2021-10-28] MEDS: ACETAMINOPHEN 500 MG TABLET PO (09:14)
[2021-10-28] MEDS: APIXABAN 2.5 MG TABLET PO ×2 (09:15→21:00)
[2021-10-28] MEDS: METOPROLOL SUCCINATE EXT REL 25 MG TABCR PO (09:15)
--- NOTE | 2021-10-28 14:17 | PM.IMPN ---
Progress Note: A&P Assessment and Plan (1) Acute and chronic respiratory failure with hypercapnia: Code(s): J96.22 - Acute and chronic respiratory failure with hypercapnia Status: Acute Assessment and Plan: Presented with increased shortness of breath. ABG with evidence of hypercapnia Clinical picture most consistent with obesity hypoventilation syndrome Apnea link completed overnight on 10/27/2021 Will trial BiPAP tonight at 12/6 Repeat ABG in the morning to assess for improvement CT of the chest was negative for PE. Did reveal bibasilar atelectasis. Continue incentive spirometry. Wean supplemental oxygen as tolerated with goal saturation 90% or above. (2) Diastolic congestive heart failure: Code(s): I50.30 - Unspecified diastolic (congestive) heart failure Status: Acute Assessment and Plan: Appears clinically compensated with the exception of lower extremity edema which is chronic and unchanged Received IV Lasix in the ED Transition back to p.o. furosemide 20 mg daily Continue spironolactone 12.5 mg daily Continue metoprolol succinate 25 mg (3) Chronic kidney disease, stage 3: Code(s): N18.30 - Chronic kidney disease, stage 3 unspecified Status: Acute Assessment and Plan: Renal function is consistent with baseline (4) Hypokalemia: Code(s): E87.6 - Hypokalemia Status: Acute Assessment and Plan: Resolved with supplementation Potassium slightly decreased at 3.3 Last hospitalization she had issues with hyperkalemia and was started on Lokelma for potassium lowering therapy. Will plan to monitor potassium levels off of this medication. Anticipate potassium levels will stabilize without additional therapy (5) Paroxysmal atrial flutter: Code(s): I48.92 - Unspecified atrial flutter Status: Acute Assessment and Plan: Rate is controlled Continue Eliquis Subjective Date/time seen: 10/28/21 14:17 Interval history: Date of service: 10/28/2021 Sarah Beth Stafford is a 81-year-old female with a history of hypertension, diastolic dysfunction, paroxysmal atrial flutter on chronic anticoagulation, and tobacco abuse who is seen in follow-up for hypercapnic respiratory failure. She is feeling a bit better today. She continues to endorse shortness of breath. She also endorses orthopnea, stating she has not been able to lie flat in quite some time. She feels her lower extremity edema is about the same as it always is. She denies wheezing. Denies cough. Her main complaint is feeling very fatigued. She states she did not sleep well last night. Denies chest pain or palpitations. No nausea, vomiting, fever, chills. Denies urinary symptoms. Review of Systems Review of Systems: All systems reviewed & are unremarkable except as noted in HPI and below Exam Narrative: General: Obese, tired-appearing 81-year-old female, sitting up in bed, comfortable, NARD Neuro: awake, alert and oriented x4, speech clear, no focal neuro deficits noted HEENMT: normocephalic, atraumatic, EOMI, sclerae anicteric Respiratory: clear to auscultation bilaterally, nonlabored breathing Cardio: regular rate, regular rhythm with S1-S2 Abdomen: nondistended, normoactive bowel sounds, soft, nontender to palpation Extremities: 1+ edema of the bilateral lower extremities, no erythema or tenderness to palpation, DP pulses 2+ bilaterally Skin: no rashes or lesions, warm and dry Psych: appropriate mood and affect, judgment and insight intact Objective Data Vital Signs Vital Signs: Vital Signs - 24 hr 10/27/21 18:24 10/27/21 19:10 10/27/21 21:37 Temperature 97.7 F 97.4 F L Pulse Rate 99 86 99 Respiratory Rate 20 30 H 20 Blood Pressure 126/55 L 127/67 136/78 Pulse Oximetry 97 97 96 Oxygen Delivery Oxygen Flow Rate 10/27/21 20:00 10/28/21 06:00 10/28/21 09:15 Temperature 97.2 F L Pulse Rate 92 90 Respiratory Rate 20
[2021-10-28] MEDS: FUROSEMIDE 20 MG TABLET PO (17:36)
[2021-10-28] MEDS: DOXAZOSIN MESYLATE 4 MG TABLET 8 MG PO (21:01)
[2021-10-28] MEDS: traZODone HCL 50 MG TABLET 100 MG PO (21:01)
[2021-10-29] VITALS (10 sets, daily range): BP systolic 111–130; BP diastolic 52–71; PULSE 74–101; RESP 17–30; TEMP 36.4; O2SAT 93–97
[2021-10-29 05:05] LABS: Alveolar/Arterial O2 Gradient 54.5 mmHg; Base Excess ABG 13.2 mEq/l (+/-2.0); Fractional Inspired Oxygen 28 %; HCO3 ABG 40.5 mEq/l (22.0-26.0); Oxygen Content ABG 13.6 %vol (16.0-22.0); Oxygen Saturation ABG 91.7 % (95.0-100.0); Oxyhemoglobin 91.2 % THb (90.0-100.0); PO2 ABG 64.7 mmHg (80.0-100.0); PO2 FiO2 Ratio Arterial Blood 2.31 %; Total Hemoglobin 10.6 g/dL (12.0-18.0); pH ABG 7.391 (7.350-7.450)
[2021-10-29 05:10] LABS: Device NASAL CANNULA; Modified Allen's Test Pass; PCO2 ABG 68.2 mmHg (35.0-45.0); Site Drawn RIGHT RADIAL
[2021-10-29 06:52] LABS: Hemoglobin 9.4 g/dL (12.0-15.0); Mean Corpuscular HGB Conc 29.4 g/dl (32-36); Mean Corpuscular Hemoglobin 29.9 pg (26-34); Mean Corpuscular Volume 101.9 fl (80-100); Mean Platelet Volume 10.5 fl (7.4-10.4); Platelet Count Result 159 k/mm3 (150-375); Red Blood Count 3.14 M/mm3 (4.2-5.4); Red Cell Distribution Width 14.1 % (11.5-14.5); White Blood Count 9.4 K/mm3 (4.5-10.0)
[2021-10-29 07:02] LABS: Anion Gap 3 mmol/L (8-16); Blood Urea Nitrogen 28 mg/dL (7-17); Calcium 7.8 mg/dL (8.4-10.2); Carbon Dioxide 38 mmol/L (22-30); Chloride 97 mmol/L (98-107); Estimated CRCL calculation 37 ml/min; Estimated Glomerular Filt Rate 43; Glucose 92 mg/dL (65-110); Magnesium 2.2 mg/dL (1.6-2.3); Potassium 3.6 mmol/L (3.4-5.0); Sodium 138 mmol/L (137-145)
[2021-10-29] MEDS: SPIRONOLACTONE 12.5 MG TABLET PO (09:13)
[2021-10-29] MEDS: APIXABAN 2.5 MG TABLET PO ×2 (09:13→20:09)
[2021-10-29] MEDS: METOPROLOL SUCCINATE EXT REL 25 MG TABCR PO (09:14)
[2021-10-29] MEDS: FUROSEMIDE 20 MG TABLET PO (09:15)
--- NOTE | 2021-10-29 09:45 | PM.IMPN ---
Progress Note: A&P Assessment and Plan (1) Acute and chronic respiratory failure with hypercapnia: Code(s): J96.22 - Acute and chronic respiratory failure with hypercapnia Status: Acute Assessment and Plan: Presented with increased shortness of breath. ABG with evidence of hypercapnia Clinical picture most consistent with obesity hypoventilation syndrome Apnea link completed overnight on 10/27/202110/28 patient refused BiPAP overnight Repeat ABG today with worsened hypercapnia, however she is compensated and pH is normal. Will trial BiPAP today for a few hours and repeat ABG to assess for improvement. CT of the chest was negative for PE. Did reveal bibasilar atelectasis. Continue incentive spirometry. Wean supplemental oxygen as tolerated with goal saturation 90% or above. (2) Diastolic congestive heart failure: Code(s): I50.30 - Unspecified diastolic (congestive) heart failure Status: Acute Assessment and Plan: Appears clinically compensated with the exception of lower extremity edema which is chronic and unchanged Received IV Lasix in the ED Continue p.o. furosemide 20 mg daily Continue spironolactone 12.5 mg daily Continue metoprolol succinate 25 mg (3) Chronic kidney disease, stage 3: Code(s): N18.30 - Chronic kidney disease, stage 3 unspecified Status: Acute Assessment and Plan: Renal function is consistent with baseline (4) Hypokalemia: Code(s): E87.6 - Hypokalemia Status: Acute Assessment and Plan: Resolved with supplementation Potassium stable today at 3.6 Last hospitalization she had issues with hyperkalemia and was started on Lokelma for management. Anticipate potassium levels will stabilize without additional therapy (5) Paroxysmal atrial flutter: Code(s): I48.92 - Unspecified atrial flutter Status: Acute Assessment and Plan: Rate is controlled Continue Eliquis Subjective Date/time seen: 10/29/21 09:45 Interval history: Date of service: 10/29/2021 Sarah Beth Stafford is a 81-year-old female with a history of hypertension, diastolic dysfunction, paroxysmal atrial flutter on chronic anticoagulation, and tobacco abuse who is seen in follow-up for hypercapnic respiratory failure. She complains of feeling nauseous today. She states the sausage she ate for breakfast did not settle in her stomach well. She has not thrown up. She denies abdominal pain. She has been able to get up and walk to the bedside commode with assistance. She continues to endorse shortness of breath. States last night she did not sleep well because she could not get comfortable. She denies cough. She refused BiPAP last night and we had a long discussion regarding the importance of trialing this therapy. I revisited the patient shortly after my first encounter to discuss trying BiPAP for a couple hours today and she was agreeable. Her nausea had resolved entirely after having a few sips of Sprite. She does not feel nauseous and has not thrown up. Discussed that if she does feel nauseous again or feel that she may throw up, she should not use the BiPAP. Review of Systems Review of Systems: All systems reviewed & are unremarkable except as noted in HPI and below Exam Narrative: General: Obese, tired-appearing 81-year-old female, sitting up in bed holding an emesis basin, comfortable, NARD Neuro: awake, alert and oriented x4, speech clear, no focal neuro deficits noted HEENMT: normocephalic, atraumatic, EOMI, sclerae anicteric Respiratory: clear to auscultation bilaterally, nonlabored breathing Cardio: regular rate, regular rhythm with S1-S2 Abdomen: nondistended, normoactive bowel sounds, soft, nontender to palpation Extremities: 1+ edema of the bilateral lower extremities, no erythema or tenderness to palpation, DP pulses 2+ bilaterally Skin: no rashes or lesions, warm and dry Psych: appropriate mood and aff
[2021-10-29 16:30] LABS: Alveolar/Arterial O2 Gradient 68.3 mmHg; Base Excess ABG 11.4 mEq/l (+/-2.0); Fractional Inspired Oxygen 30 %; Oxygen Content ABG 14.3 %vol (16.0-22.0); Oxygen Saturation ABG 94.4 % (95.0-100.0); Oxyhemoglobin 93.5 % THb (90.0-100.0); PO2 ABG 73.3 mmHg (80.0-100.0); PO2 FiO2 Ratio Arterial Blood 2.44 %; Total Hemoglobin 10.8 g/dL (12.0-18.0); pH ABG 7.409 (7.350-7.450)
[2021-10-29 16:33] LABS: Device BIPAP; Expiratory Pressure 6 cmH2O; Inspiratory Pressure 12 cmH2O; Modified Allen's Test Pass; PCO2 ABG 61.5 mmHg (35.0-45.0); Site Drawn LEFT RADIAL
[2021-10-29] MEDS: DOXAZOSIN MESYLATE 4 MG TABLET 8 MG PO (20:08)
[2021-10-29] MEDS: traZODone HCL 50 MG TABLET 100 MG PO (20:09)
[2021-10-30] VITALS (8 sets, daily range): BP systolic 109–127; BP diastolic 55–60; PULSE 71–86; RESP 18–21; TEMP 36.5–36.9; O2SAT 88–98
[2021-10-30 05:26] LABS: Alveolar/Arterial O2 Gradient 70.4 mmHg; Base Excess ABG 5.9 mEq/l (+/-2.0); Carboxyhemoglobin 0.2 % THb (0-2.0); Fractional Inspired Oxygen 30 %; HCO3 ABG 32.1 mEq/l (22.0-26.0); Methemoglobin ABG 0.5 %THb (0-1.5); Oxygen Content ABG 13.6 %vol (16.0-22.0); Oxygen Saturation ABG 95.1 % (95.0-100.0); PCO2 ABG 55.5 mmHg (35.0-45.0); PO2 ABG 78.3 mmHg (80.0-100.0); PO2 FiO2 Ratio Arterial Blood 2.61 %; Reduced Hemoglobin 6.3 %THb (0-5.0); Total Hemoglobin 10.3 g/dL (12.0-18.0)
[2021-10-30 05:27] LABS: Device NON-INVASIVE VENT; Modified Allen's Test Pass; Non-Invasive Expiratory Pressure 6 CMH2O; Non-Invasive Inspiratory Pressure 12 CMH2O; Non-Invasive Vent Rate 18 /MIN; Site Drawn RIGHT RADIAL
[2021-10-30 06:42] LABS: Hematocrit 31.9 % (37.0-47.0); Hemoglobin 9.4 g/dL (12.0-15.0); Mean Corpuscular HGB Conc 29.5 g/dl (32-36); Mean Corpuscular Hemoglobin 29.8 pg (26-34); Mean Corpuscular Volume 101.3 fl (80-100); Mean Platelet Volume 10.3 fl (7.4-10.4); Platelet Count Result 172 k/mm3 (150-375); Red Blood Count 3.15 M/mm3 (4.2-5.4); Red Cell Distribution Width 14.1 % (11.5-14.5); White Blood Count 7.8 K/mm3 (4.5-10.0)
[2021-10-30 06:56] LABS: Blood Urea Nitrogen 28 mg/dL (7-17); Carbon Dioxide > 40 mmol/L (22-30); Chloride 97 mmol/L (98-107); Estimated CRCL calculation 38 ml/min; Estimated Glomerular Filt Rate 43; Glucose 87 mg/dL (65-110); Potassium 3.9 mmol/L (3.4-5.0); Sodium 139 mmol/L (137-145)
[2021-10-30] MEDS: METOPROLOL SUCCINATE EXT REL 25 MG TABCR PO (08:30)
[2021-10-30] MEDS: FUROSEMIDE 20 MG TABLET PO (08:30)
[2021-10-30] MEDS: APIXABAN 2.5 MG TABLET PO ×2 (08:30→20:05)
[2021-10-30] MEDS: SPIRONOLACTONE 12.5 MG TABLET PO (08:30)
--- NOTE | 2021-10-30 16:31 | PM.IMPN ---
Progress Note: A&P Assessment and Plan (1) Acute and chronic respiratory failure with hypercapnia: Code(s): J96.22 - Acute and chronic respiratory failure with hypercapnia Status: Acute Assessment and Plan: Presented with increased shortness of breath. ABG with evidence of hypercapnia Clinical picture most consistent with obesity hypoventilation syndrome Apnea link completed overnight on 10/27/2021 on 2 L supplemental o2 unremarkable. 10/28 patient refused BiPAP overnight 10/29 with worsened pCO2 therefore wore BiPAP during day and overnight Repeat ABG this morning with overall improvement. Continue BiPAP at night during hospitalization Patient will benefit from NIV such as Trilogy device at home for management of respiratory failure with hypercapnia. BiPAP ruled out for home therapy. Patient is hypoxic today down to 88%. Continue 2 L supplemental o2. Wean as tolerated. She will require home oxygen evaluation. (Completed last hospitalization on 10/23/21 and did not require o2). Repeat apnea link tonight on room air with continuous pulse ox monitoring to assess for nocturna O2 requirements. (2) Diastolic congestive heart failure: Code(s): I50.30 - Unspecified diastolic (congestive) heart failure Status: Acute Assessment and Plan: Appears clinically compensated with the exception of lower extremity edema which is chronic and unchanged Received IV Lasix in the ED Continue p.o. furosemide 20 mg daily Continue spironolactone 12.5 mg daily Continue metoprolol succinate 25 mg (3) Chronic kidney disease, stage 3: Code(s): N18.30 - Chronic kidney disease, stage 3 unspecified Status: Acute Assessment and Plan: Renal function is consistent with baseline (4) Hypokalemia: Code(s): E87.6 - Hypokalemia Status: Acute Assessment and Plan: Resolved with supplementation Potassium stable today at 3.9 (5) Paroxysmal atrial flutter: Code(s): I48.92 - Unspecified atrial flutter Status: Acute Assessment and Plan: Rate is controlled Continue Lynquis Subjective Date/time seen: 10/30/21 16:31 Interval history: Date of service: 10/30/2021 Sarah Beth Stafford is a 81-year-old female with a history of hypertension, diastolic dysfunction, paroxysmal atrial flutter on chronic anticoagulation, and tobacco abuse who is seen in follow-up for hypercapnic respiratory failure. She is feeling better today. She was tolerate using the BiPAP last night. She did say she had a hard time sleeping with it but was able to keep it on throughout the night.She denies shortness of breath at this time. Denies cough. No chest pain or palpitations. No further episodes of nausea. She has been tolerating her diet but states she does not like the food here. Denies fever or chills. She is getting up to the bathroom with assistance and states she is doing well with this. Review of Systems Review of Systems: All systems reviewed & are unremarkable except as noted in HPI and below Exam Narrative: General: obese, well-appearing 81-year-old female, comfortable, NARD Neuro: awake, alert and oriented x4, speech clear, no focal neuro deficits noted HEENMT: normocephalic, atraumatic, EOMI, sclerae anicteric Respiratory: clear to auscultation bilaterally, nonlabored breathing Cardio: regular rate, regular rhythm with S1-S2 Abdomen: nondistended, normoactive bowel sounds, soft, nontender to palpation Extremities: 1+ edema of the bilateral lower extremities, no erythema or tenderness to palpation Skin: no rashes or lesions, warm and dry Psych: appropriate mood and affect, judgment and insight intact Objective Data Vital Signs Vital Signs: Vital Signs - 24 hr 10/29/21 20:00 10/29/21 22:00 10/29/21 22:45 Temperature 97.5 F L Pulse Rate 87 80 Respiratory Rate 17 26 H Blood Pressure 124/60 Pulse Oximetry 95 96 94 Oxygen Delivery Nasal Cannula B
[2021-10-30] MEDS: traZODone HCL 50 MG TABLET 100 MG PO (20:05)
[2021-10-30] MEDS: DOXAZOSIN MESYLATE 4 MG TABLET 8 MG PO (20:05)
--- NOTE | 2021-10-30 22:53 | PCRCNOTE ---
Apnea link started, pt on hospital vision BIPAP 03/27, rate 18, Fi02 21%. HR-80,RR-21,SP02-92%.
[2021-10-31] VITALS (9 sets, daily range): BP systolic 107–130; BP diastolic 48–62; PULSE 64–88; RESP 14–32; TEMP 36.2–36.9; O2SAT 86–96
[2021-10-31] MEDS: ACETAMINOPHEN 500 MG TABLET PO (06:22)
[2021-10-31 07:34] LABS: Hemoglobin 9.9 g/dL (12.0-15.0); Mean Corpuscular HGB Conc 30.9 g/dl (32-36); Mean Corpuscular Hemoglobin 30.2 pg (26-34); Mean Corpuscular Volume 97.6 fl (80-100); Mean Platelet Volume 10.3 fl (7.4-10.4); Platelet Count Result 180 k/mm3 (150-375); Red Blood Count 3.28 M/mm3 (4.2-5.4); Red Cell Distribution Width 13.9 % (11.5-14.5); White Blood Count 8.4 K/mm3 (4.5-10.0)
[2021-10-31 07:53] LABS: Blood Urea Nitrogen 28 mg/dL (7-17); Carbon Dioxide > 40 mmol/L (22-30); Chloride 95 mmol/L (98-107); Estimated CRCL calculation 38 ml/min; Estimated Glomerular Filt Rate 43; Glucose 95 mg/dL (65-110); Potassium 4.1 mmol/L (3.4-5.0); Sodium 138 mmol/L (137-145)
[2021-10-31] MEDS: METOPROLOL SUCCINATE EXT REL 25 MG TABCR PO (09:30)
[2021-10-31] MEDS: SPIRONOLACTONE 12.5 MG TABLET PO (09:30)
[2021-10-31] MEDS: FUROSEMIDE 20 MG TABLET PO (09:30)
[2021-10-31] MEDS: APIXABAN 2.5 MG TABLET PO ×2 (09:30→20:55)
--- NOTE | 2021-10-31 14:57 | PM.IMPN ---
Progress Note: A&P Assessment and Plan (1) Acute and chronic respiratory failure with hypercapnia: Code(s): J96.22 - Acute and chronic respiratory failure with hypercapnia Status: Acute Assessment and Plan: Presented with increased shortness of breath. ABG with evidence of hypercapnia Clinical picture most consistent with obesity hypoventilation syndrome Apnea link completed overnight on 10/27/2021 on 2 L supplemental o2 was unremarkable. 10/28 patient refused BiPAP overnight 10/29 with worsened pCO2 therefore wore BiPAP during day and overnight with improvement in pCO2 on repeat ABG Continue BiPAP at night during hospitalization Patient will benefit from NIV such as Trilogy device at home for management of respiratory failure with hypercapnia. BiPAP ruled out for home therapy. RT obtaining home Trilogy device. May get loaner device and if so will use tonight. If not able to be obtained tonight, continue BiPAP with 2 L O2 bleed in (patient qualifies for nocturnal O2 based on Apnea Link on 10/30/21) Plan for repeat ABG tomorrow. Patient also with intermittent hypoxia. Continue 2 L supplemental o2. Wean as tolerated. Home O2 eval done last hospitalization on 10/23/21 and did not require o2. Repeat home O2 eval prior to discharge. (2) Diastolic congestive heart failure: Code(s): I50.30 - Unspecified diastolic (congestive) heart failure Status: Acute Assessment and Plan: Appears clinically compensated with the exception of lower extremity edema which is chronic and unchanged Received IV Lasix in the ED Continue p.o. furosemide 20 mg daily Continue spironolactone 12.5 mg daily Continue metoprolol succinate 25 mg (3) Chronic kidney disease, stage 3: Code(s): N18.30 - Chronic kidney disease, stage 3 unspecified Status: Acute Assessment and Plan: Renal function is consistent with baseline (4) Hypokalemia: Code(s): E87.6 - Hypokalemia Status: Acute Assessment and Plan: Resolved with supplementation Potassium stable today at 4.1 (5) Paroxysmal atrial flutter: Code(s): I48.92 - Unspecified atrial flutter Status: Acute Assessment and Plan: Rate is controlled Continue Eliquis Subjective Date/time seen: 10/31/21 14:57 Interval history: Date of service: 10/31/2021 Sarah Beth Stafford is a 81-year-old female with a history of hypertension, diastolic dysfunction, paroxysmal atrial flutter on chronic anticoagulation, and tobacco abuse who is seen in follow-up for hypercapnic respiratory failure. She feels tired today. She had been up for part of the morning and it seems that this wore her out. She denies shortness of breath. Denies cough. Denies dizziness or lightheadedness. She states she could breakfast today. Denies abdominal pain, nausea, or vomiting. She is more somnolent today and less conversational. Review of Systems Review of Systems: All systems reviewed & are unremarkable except as noted in HPI and below Exam Narrative: General: obese, well-appearing 81-year-old female, comfortable, NARD Neuro: Somnolent, alert and oriented x4, answering all questions appropriately but occasionally would nod off in between questions, speech clear, no focal neuro deficits noted HEENMT: normocephalic, atraumatic, EOMI, sclerae anicteric Respiratory: clear to auscultation bilaterally, nonlabored breathing Cardio: regular rate, regular rhythm with S1-S2 Abdomen: nondistended, normoactive bowel sounds, soft, nontender to palpation Extremities: 1+ edema of the bilateral lower extremities, no erythema or tenderness to palpation Skin: no rashes or lesions, warm and dry Psych: appropriate mood and affect, judgment and insight intact Objective Data Vital Signs Vital Signs: Vital Signs - 24 hr 10/30/21 21:26 10/30/21 22:51 10/31/21 01:06 Temperature 98.5 F Pulse Rate 86 80 80 Respiratory Rate 18 21 H 20 Blood
--- NOTE | 2021-10-31 15:18 | PCRCNOTE ---
NIV being arranged with [employer]. They have received all paperwork but did not have a unit in stock; unit has been ordered. Terenceia:
[2021-10-31] MEDS: traZODone HCL 50 MG TABLET 100 MG PO (20:55)
[2021-10-31] MEDS: DOXAZOSIN MESYLATE 4 MG TABLET 8 MG PO (20:55)
[2021-11-01] VITALS (16 sets, daily range): BP systolic 105–129; BP diastolic 60–77; PULSE 74–110; RESP 16–27; TEMP 36.1–36.4; O2SAT 87–96
[2021-11-01 06:02] LABS: Alveolar/Arterial O2 Gradient 79.6 mmHg; Base Excess ABG 8.4 mEq/l (+/-2.0); Fractional Inspired Oxygen 30 %; Oxygen Content ABG 13.8 %vol (16.0-22.0); Oxygen Saturation ABG 94.7 % (95.0-100.0); Oxyhemoglobin 92.7 % THb (90.0-100.0); PCO2 ABG 52.7 mmHg (35.0-45.0); PO2 ABG 72.4 mmHg (80.0-100.0); PO2 FiO2 Ratio Arterial Blood 2.41 %; Total Hemoglobin 10.5 g/dL (12.0-18.0); pH ABG 7.428 (7.350-7.450)
[2021-11-01 06:03] LABS: Device NON-INVASIVE VENT; Modified Allen's Test Pass; Site Drawn RIGHT RADIAL
[2021-11-01 06:04] LABS: Non-Invasive Expiratory Pressure 6 CMH2O; Non-Invasive Inspiratory Pressure 12 CMH2O; Non-Invasive Vent Rate 18 /MIN
[2021-11-01 06:22] LABS: Hematocrit 31.1 % (37.0-47.0); Hemoglobin 9.4 g/dL (12.0-15.0); Mean Corpuscular HGB Conc 30.2 g/dl (32-36); Mean Corpuscular Hemoglobin 30.2 pg (26-34); Mean Platelet Volume 10.5 fl (7.4-10.4); Platelet Count Result 184 k/mm3 (150-375); Red Blood Count 3.11 M/mm3 (4.2-5.4); Red Cell Distribution Width 14.1 % (11.5-14.5); White Blood Count 7.6 K/mm3 (4.5-10.0)
[2021-11-01 06:39] LABS: NT Pro B Type Natriuretic Pept 3000 pg/mL (5-100)
[2021-11-01 06:42] LABS: Anion Gap 1 mmol/L (8-16); Blood Urea Nitrogen 27 mg/dL (7-17); Calcium 7.8 mg/dL (8.4-10.2); Carbon Dioxide 39 mmol/L (22-30); Chloride 97 mmol/L (98-107); Estimated CRCL calculation 38 ml/min; Estimated Glomerular Filt Rate 43; Glucose 80 mg/dL (65-110); Potassium 3.9 mmol/L (3.4-5.0); Sodium 137 mmol/L (137-145)
[2021-11-01] MEDS: APIXABAN 2.5 MG TABLET PO ×2 (09:10→21:08)
[2021-11-01] MEDS: FUROSEMIDE 20 MG TABLET PO (09:10)
[2021-11-01] MEDS: SPIRONOLACTONE 12.5 MG TABLET PO (09:10)
[2021-11-01] MEDS: METOPROLOL SUCCINATE EXT REL 25 MG TABCR PO (09:10)
--- NOTE | 2021-11-01 13:53 | HOMEO2EVAL ---
Evaluation was performed at [facility] Home Oxygen Evaluation RC: Home Oxygen (O2) Evaluation Start: 11/01/21 13:40 Freq: ONCE Status: Active Protocol: RPE Activity Type Activity Date Activity User E-sign Co-sign Detail Recorded Client Recorded Date Recorded By Document 11/01/21 12:55 [email or web address] [email or web address] 11/01/21 13:53 DJO Document 11/01/21 13:00 [email or web address] [email or web address] 11/01/21 13:53 DJO Document 11/01/21 13:05 [email or web address] [email or web address] 11/01/21 13:53 DJO Document 11/01/21 13:10 [email or web address] [email or web address] 11/01/21 13:53 DJO Document 11/01/21 13:15 [email or web address] [email or web address] 11/01/21 13:53 DJO Document 11/01/21 13:20 [email or web address] [email or web address] 11/01/21 13:53 DJO Document 11/01/21 13:35 [email or web address] [email or web address] 11/01/21 13:53 DJO 11/01/21 11/01/21 11/01/21 12:55 13:00 13:05 Home O2 Evaluation Test Phase Resting Resting Resting Oxygen Delivery Room Air Nasal Cannula Nasal Cannula Oxygen Flow Rate (L/min) 1 2 Pulse Oximetry (90-100 %) 87 L 88 L 91 Pulse Rate (60-100 beats/min) 86 85 85 Activity Tolerance Treatment Charges O2 Evaluation - Inpatient 11/01/21 11/01/21 11/01/21 13:10 13:15 13:20 Home O2 Evaluation Test Phase Exercise Exercise Exercise Oxygen Delivery Nasal Cannula Nasal Cannula Nasal Cannula Oxygen Flow Rate (L/min) 2 3 4 Pulse Oximetry (90-100 %) 87 L 88 L 90 Pulse Rate (60-100 beats/min) 104 H 108 H 110 H Activity Tolerance Fair Treatment Charges 11/01/21 13:35 Home O2 Evaluation Test Phase Resting Oxygen Delivery Nasal Cannula Oxygen Flow Rate (L/min) 2 Pulse Oximetry (90-100 %) 90 Pulse Rate (60-100 beats/min) 87 Activity Tolerance Treatment Charges
--- NOTE | 2021-11-01 14:59 | PM.IMPN ---
Progress Note: A&P Assessment and Plan (1) Acute and chronic respiratory failure with hypercapnia: Code(s): J96.22 - Acute and chronic respiratory failure with hypercapnia Status: Acute Assessment and Plan: Presented with increased shortness of breath. ABG with evidence of hypercapnia Clinical picture most consistent with obesity hypoventilation syndrome Apnea link completed overnight on 10/27/2021 on 2 L supplemental o2 was unremarkable. 10/28 patient refused BiPAP overnight 10/29 with worsened pCO2 therefore wore BiPAP during day and overnight with improvement in pCO2 on repeat ABG Continue BiPAP at night during hospitalization Patient may benefit from NIV such as Trilogy device at home for management of respiratory failure with hypercapnia. BiPAP ruled out for home therapy. RT obtaining home Trilogy device. If not able to be obtained tonight, continue BiPAP with 2 L O2 bleed in (patient qualifies for nocturnal O2 based on Apnea Link on 10/30/21) Patient also with intermittent hypoxia. Continue 2 L supplemental o2. Home O2 eval done last hospitalization on 10/23/21 and did not require o2. Repeat home O2 eval today. Consult pulmonology today, patient does not seem to be improving and in fact was feeling worse today. (2) Diastolic congestive heart failure: Code(s): I50.30 - Unspecified diastolic (congestive) heart failure Status: Acute Assessment and Plan: Appears clinically compensated with the exception of lower extremity edema which is chronic and unchanged Received IV Lasix in the ED Continue p.o. furosemide 20 mg daily Continue spironolactone 12.5 mg daily Continue metoprolol succinate 25 mg (3) Chronic kidney disease, stage 3: Code(s): N18.30 - Chronic kidney disease, stage 3 unspecified Status: Acute Assessment and Plan: Renal function is consistent with baseline (4) Hypokalemia: Code(s): E87.6 - Hypokalemia Status: Acute Assessment and Plan: Resolved with supplementation Potassium stable today at 3.9 (5) Paroxysmal atrial flutter: Code(s): I48.92 - Unspecified atrial flutter Status: Acute Assessment and Plan: Rate is controlled Continue Eliquis Subjective Date/time seen: 11/01/21 14:59 Interval history: Sarah Beth Stafford is a 81-year-old female with a history of hypertension, diastolic dysfunction, paroxysmal atrial flutter on chronic anticoagulation, and tobacco abuse who is seen in follow-up for hypercapnic respiratory failure. She does not feel well today. She is very tired and having trouble keeping her eyes open. States she is having trouble sleeping with the bipap. She also reports increased sob today and is having difficulty breathing. She is on 3L NC. No chest pain. LE edema is improved. Review of Systems Review of Systems: All systems reviewed & are unremarkable except as noted in HPI and below Exam Narrative: General: obese, elderly, lethargic, somnolent but arousable Neuro: Somnolent, alert and oriented x4, answering all questions appropriately but occasionally would nod off in between questions, speech clear, no focal neuro deficits noted HEENMT: normocephalic, atraumatic, EOMI, sclerae anicteric Respiratory: clear to auscultation bilaterally, slightly labored shallow breathing Cardio: regular rate, regular rhythm with S1-S2 Abdomen: nondistended, normoactive bowel sounds, soft, nontender to palpation Extremities: 1+ edema of the bilateral lower extremities, no erythema or tenderness to palpation Skin: no rashes or lesions, warm and dry Psych: appropriate mood and affect, judgment and insight intact Objective Data Vital Signs Vital Signs: Vital Signs - 24 hr 10/31/21 15:08 10/31/21 15:08 10/31/21 15:09 Temperature Pulse Rate Respiratory Rate Blood Pressure Pulse Oximetry 86 L 91 Oxygen Delivery Room Air Nasal Cannula Oxygen Flow
--- NOTE | 2021-11-01 20:55 | PM.CNPUL ---
Assessment and Plan Assessment and plan (1) Acute and chronic respiratory failure with hypercapnia: Code(s): J96.22 - Acute and chronic respiratory failure with hypercapnia Status: Acute Assessment and Plan: This 81 year old female has COPD by history, smoking, acute on chronic acute on chronic hypercapnic hypoxemic respiratory failure. She has not used oxygen at home before this admission, but clearly needs to be on oxygen now. She is a candidate for NPPV, noninvasive positive-pressure ventilator, and AVAPS AE settings are ordered 11/02/2021. These will help determine what her home settings will be, now on generic settings based on age and ht, ideal body weight. She qualifies of NPPV based on chronic lung disease and her ABGs, as she has tried BiPAP and failed, BiPAP settings were 12/6. I am going to assume she has COPD, because she has the diagnosis. Her home med list does not show inhalers. Her COPD needs to be treated, agree with inhaled triple therapy, p.r.n. beta agonist, tobacco cessation, proper O2 with education to not overuse O2, physical therapy, out patient PFTs, probable cardiopulmonary rehab. She needs to stay current on all vaccinations. It is not totally clear what the driving problem is this admission. She used O2 on the admission October 22 through October 25 however did not go home on O2; had normal CO2 on her chemistries, does not have a definitive diagnosis of COPD and is not on inhalers. She is having atrial rhythm disturbances which suggests she may have more lung disease than appreciated. She may have right heart dysfunction. We will keep her another 1-2 days and repeat ABG on AVAPS AE. She will need outpatient follow-up, pulmonary function test in 6-8 weeks. d/w [place] Palafox (2) Pulmonary hypertension: Code(s): I27.20 - Pulmonary hypertension, unspecified Status: Acute Assessment and Plan: Elevated PA systolic pressure on recent echo 10/21/21, 58 mmHg. She has mitral regurgitation. Her pulmonary hypertension is multifactorial, COPD, hypoxemia, suspected obstructive sleep apnea which is not treated. She is not sure if she snores, she sometimes wakes with a dry mouth. She is sleepy during the daytime and she takes naps. (3) COPD (chronic obstructive pulmonary disease): Code(s): J44.9 - Chronic obstructive pulmonary disease, unspecified Status: Acute Assessment and Plan: COPD by history, although I do not see changes of emphysema on her chest CT and there are no PFTS for evaluation. SHe is not on inhalers here in the hospital. She is short of breath walking across the room which has been worse over the last few weeks. She has known diastolic dysfunction with decompensation.. Shortness of breath is multifactorial and she may have COPD but even with a long smoking history it is difficult to confirm. Most people who smoke do not get COPD, only 15%. She has a chronic cough which she says is worse when she has sinus problems with drainage in the back of her throat. She does not have much sputum; she has shortness of breath, occasional wheezing; does not have recurrent respiratory infections or COPD exacerbations even once a year. I would recommend PFTs when she is out of the hospital, off tobacco, and at a better baseline. (4) Tobacco abuse: Code(s): Z72.0 - Tobacco use Status: Acute Assessment and Plan: Tobacco: started age 19, quit a few times for at most a year, was as high as 2 ppd 20 years ago, still smoking, now a half pack a day. She says that she stopped smoking on admission. Will still need help with cessation efforts russell with going home on O2. History of Present Illness History
[2021-11-01] MEDS: MELATONIN 5 MG TABLET PO (21:08)
[2021-11-01] MEDS: traZODone HCL 50 MG TABLET 100 MG PO (21:08)
[2021-11-01] MEDS: DOXAZOSIN MESYLATE 4 MG TABLET 8 MG PO (21:08)
[2021-11-02] VITALS (9 sets, daily range): BP systolic 111–118; BP diastolic 51–71; PULSE 68–88; RESP 16–24; TEMP 36.2–37.2; O2SAT 93–97
[2021-11-02 06:48] LABS: Basophils Percent Auto 0.3 % (0.2-1.2); Eosinophils Absolute Auto 0.2 K/mm3 (0-0.3); Eosinophils Percent Auto 2.1 % (0-4.4); Hematocrit 30.6 % (37.0-47.0); Hemoglobin 9.6 g/dL (12.0-15.0); Immature Granulocyte Absolute 0.04 K/mm3 (0.00-0.031); Immature Granulocyte Percent A 0.5 % (0-0.5); Lymphocytes Absolute Auto 0.63 K/mm3 (0.9-3.2); Lymphocytes Percent Auto 8.1 % (18.3-44.2); Mean Corpuscular HGB Conc 31.4 g/dl (32-36); Mean Corpuscular Hemoglobin 30.7 pg (26-34); Mean Corpuscular Volume 97.8 fl (80-100); Mean Platelet Volume 10.3 fl (7.4-10.4); Monocytes Absolute Auto 0.8 K/mm3 (0.1-0.6); Monocytes Percent Auto 10.3 % (2.6-8.5); Neutrophils Absolute Auto 6.1 K/mm3 (1.3-6.7); Neutrophils Percent Auto 78.7 % (45.5-73.1); Platelet Count Result 197 k/mm3 (150-375); Red Blood Count 3.13 M/mm3 (4.2-5.4); White Blood Count 7.8 K/mm3 (4.5-10.0)
[2021-11-02 07:10] LABS: Blood Urea Nitrogen 27 mg/dL (7-17); Calcium 7.9 mg/dL (8.4-10.2); Carbon Dioxide > 40 mmol/L (22-30); Chloride 96 mmol/L (98-107); Estimated CRCL calculation 41 ml/min; Estimated Glomerular Filt Rate 48; Glucose 83 mg/dL (65-110); Potassium 3.8 mmol/L (3.4-5.0); Sodium 135 mmol/L (137-145)
[2021-11-02] MEDS: APIXABAN 2.5 MG TABLET PO ×2 (07:55→22:11)
[2021-11-02] MEDS: METOPROLOL SUCCINATE EXT REL 25 MG TABCR PO (07:56)
[2021-11-02] MEDS: SPIRONOLACTONE 12.5 MG TABLET PO (07:56)
[2021-11-02] MEDS: FUROSEMIDE 20 MG TABLET PO (07:56)
--- NOTE | 2021-11-02 16:09 | PM.IMPN ---
Progress Note: A&P Assessment and Plan (1) Acute and chronic respiratory failure with hypercapnia: Code(s): J96.22 - Acute and chronic respiratory failure with hypercapnia Status: Acute Assessment and Plan: Presented with increased shortness of breath. ABG with evidence of hypercapnia Clinical picture most consistent with obesity hypoventilation syndrome Apnea link completed overnight on 10/27/2021 on 2 L supplemental o2 was unremarkable. 10/28 patient refused BiPAP overnight 10/29 with worsened pCO2 therefore wore BiPAP during day and overnight with improvement in pCO2 on repeat ABG Continue BiPAP at night during hospitalization Patient may benefit from NIV such as Trilogy device at home for management of respiratory failure with hypercapnia. BiPAP ruled out for home therapy. RT obtaining home Trilogy device. If not able to be obtained tonight, continue BiPAP with 2 L O2 bleed in (patient qualifies for nocturnal O2 based on Apnea Link on 10/30/21) Patient also with intermittent hypoxia. Continue 2 L supplemental o2. Home O2 eval done last hospitalization on 10/23/21 and did not require o2. Repeat home O2 eval today. Consult pulmonology today, appreciate any recommendations. If patient does go home with Trelegy she will need pulmonary follow up. (2) Diastolic congestive heart failure: Code(s): I50.30 - Unspecified diastolic (congestive) heart failure Status: Acute Assessment and Plan: Appears clinically compensated with the exception of lower extremity edema which is chronic and unchanged Received IV Lasix in the ED Continue p.o. furosemide 20 mg daily Continue spironolactone 12.5 mg daily Continue metoprolol succinate 25 mg (3) Chronic kidney disease, stage 3: Code(s): N18.30 - Chronic kidney disease, stage 3 unspecified Status: Acute Assessment and Plan: Renal function is consistent with baseline (4) Hypokalemia: Code(s): E87.6 - Hypokalemia Status: Acute Assessment and Plan: Resolved with supplementation Potassium stable today at 3.8 (5) Paroxysmal atrial flutter: Code(s): I48.92 - Unspecified atrial flutter Status: Acute Assessment and Plan: Rate is controlled Continue Eliquis Subjective Date/time seen: 11/02/21 16:09 Interval history: Sarah Beth Stafford is a 81-year-old female with a history of hypertension, diastolic dysfunction, paroxysmal atrial flutter on chronic anticoagulation, and tobacco abuse who is seen in follow-up for hypercapnic respiratory failure. She feels okay today but continues to nod off while we are speaking. Continues to feel sob. No cp. States she got a little better sleep last night with the melatonin. Review of Systems Review of Systems: All systems reviewed & are unremarkable except as noted in HPI and below Exam Narrative: General: obese, elderly, lethargic, somnolent but arousable Neuro: Somnolent, alert and oriented x4, answering all questions appropriately but occasionally would nod off in between questions, speech clear, no focal neuro deficits noted HEENMT: normocephalic, atraumatic, EOMI, sclerae anicteric Respiratory: clear to auscultation bilaterally, slightly labored shallow breathing Cardio: regular rate, regular rhythm with S1-S2 Abdomen: nondistended, normoactive bowel sounds, soft, nontender to palpation Extremities: 1+ edema of the bilateral lower extremities, no erythema or tenderness to palpation Skin: no rashes or lesions, warm and dry Psych: appropriate mood and affect, judgment and insight intact Objective Data Vital Signs Vital Signs: Vital Signs - 24 hr 11/01/21 22:00 11/01/21 20:00 11/01/21 22:15 Temperature 97.4 F L Pulse Rate 74 81 Respiratory Rate 16 26 H Blood Pressure 105/60 Pulse Oximetry 95 95 93 Oxygen Delivery Nasal Cannula BiPAP Oxygen Flow Rate 2 Fraction of Inspired Oxygen 11/01/21 22:
[2021-11-02] MEDS: traZODone HCL 50 MG TABLET 100 MG PO (22:11)
[2021-11-02] MEDS: MELATONIN 5 MG TABLET PO (22:12)
[2021-11-03] VITALS (12 sets, daily range): BP systolic 105–122; BP diastolic 50–56; PULSE 73–102; RESP 10–22; TEMP 35.8–37.2; O2SAT 87–100
[2021-11-03 06:38] LABS: Basophils Percent Auto 0.3 % (0.2-1.2); Eosinophils Absolute Auto 0.2 K/mm3 (0-0.3); Eosinophils Percent Auto 2.3 % (0-4.4); Hematocrit 32.2 % (37.0-47.0); Hemoglobin 9.6 g/dL (12.0-15.0); Immature Granulocyte Absolute 0.03 K/mm3 (0.00-0.031); Immature Granulocyte Percent A 0.4 % (0-0.5); Lymphocytes Absolute Auto 0.65 K/mm3 (0.9-3.2); Mean Corpuscular HGB Conc 29.8 g/dl (32-36); Mean Corpuscular Hemoglobin 29.9 pg (26-34); Mean Corpuscular Volume 100.3 fl (80-100); Mean Platelet Volume 10.1 fl (7.4-10.4); Monocytes Absolute Auto 0.7 K/mm3 (0.1-0.6); Neutrophils Absolute Auto 5.7 K/mm3 (1.3-6.7); Platelet Count Result 210 k/mm3 (150-375); Red Blood Count 3.21 M/mm3 (4.2-5.4); Red Cell Distribution Width 13.9 % (11.5-14.5); White Blood Count 7.3 K/mm3 (4.5-10.0)
[2021-11-03 06:58] LABS: Alanine Aminotransferase 9 U/L (6-35); Alkaline Phosphatase 80 U/L (38-126); Aspartate Amino Transferase 17 U/L (14-36); Bilirubin,Total 0.6 mg/dL (0.2-1.3); Blood Urea Nitrogen 23 mg/dL (7-17); Calcium 7.7 mg/dL (8.4-10.2); Carbon Dioxide > 40 mmol/L (22-30); Chloride 96 mmol/L (98-107); Estimated CRCL calculation 38 ml/min; Estimated Glomerular Filt Rate 43; Glucose 84 mg/dL (65-110); Potassium 3.9 mmol/L (3.4-5.0); Sodium 137 mmol/L (137-145)
[2021-11-03 07:25] LABS: Bacteria Urine 4+ /hpf; Mucus Urine Few /lpf; Squamous Epithelial Cell Urine Few /hpf (Few); WBC Clumps Urine Present /HPF; WBC Urine >75 /hpf
[2021-11-03 07:59] LABS: Add Urine Microscopic? YES
[2021-11-03] MEDS: METOPROLOL SUCCINATE EXT REL 25 MG TABCR PO (08:02)
[2021-11-03] MEDS: FUROSEMIDE 20 MG TABLET PO (08:02)
[2021-11-03] MEDS: SPIRONOLACTONE 12.5 MG TABLET PO (08:02)
[2021-11-03] MEDS: APIXABAN 2.5 MG TABLET PO ×2 (08:02→21:24)
[2021-11-03 08:10] LABS: Appearance Urine Cloudy (Clear); Bilirubin Urine Negative (Negative); Blood Urine Trace-lysed (Negative); Color Urine Yellow (Yellow); Glucose Urine UA Negative (Negative); Ketones Urine Negative (Negative); Leukocyte Esterase Ur 3+ LEU/UL (Negative); Nitrate Urine Positive (Negative); Protein Urine Trace mg/dL (Negative); Specific Grav Ur 1.015 (1.001-1.035)
[2021-11-03 09:25] LABS: Platelet Clumps Present; Platelet Estimate Adequate (Adequate)
[2021-11-03 09:26] LABS: Hypochromasia 1+ (NORMAL)
[2021-11-03 09:27] LABS: Anisocytosis 1+ (NORMAL)
--- NOTE | 2021-11-03 12:11 | PM.IMPN ---
Progress Note: A&P Assessment and Plan (1) Acute and chronic respiratory failure with hypercapnia: Code(s): J96.22 - Acute and chronic respiratory failure with hypercapnia Status: Acute Assessment and Plan: Presented with increased shortness of breath. ABG with evidence of hypercapnia Has COPD listed and is a lifelong smoker, however no formal dx has been made by a research advisor and she was not on home oxygen or inhalers prior to admission Pulm consulted for further recommendations At this point, we are trying to get her set up with AVAPS Not clear what the real problem is causing her respiratory failure. It does not appear necessarily chronic as she had no issues prior to admission a couple of weeks ago. repeat abg tomorrow on AVAPS Further management per pulm, appreciate recommendations (2) Diastolic congestive heart failure: Code(s): I50.30 - Unspecified diastolic (congestive) heart failure Status: Acute Assessment and Plan: Appears clinically compensated with the exception of lower extremity edema which is chronic and unchanged Received IV Lasix in the ED Continue p.o. furosemide 20 mg daily Continue spironolactone 12.5 mg daily Continue metoprolol succinate 25 mg (3) Chronic kidney disease, stage 3: Code(s): N18.30 - Chronic kidney disease, stage 3 unspecified Status: Acute Assessment and Plan: -Renal function is consistent with baseline (4) Hypokalemia: Code(s): E87.6 - Hypokalemia Status: Acute Assessment and Plan: Resolved with supplementation Potassium stable today at 3.9 (5) Paroxysmal atrial flutter: Code(s): I48.92 - Unspecified atrial flutter Status: Acute Assessment and Plan: Rate is controlled Continue Ed[place]ira diagnosed during recent admission on 10/20/21 Subjective Date/time seen: 11/03/21 12:11 Interval history: Sarah Beth Stafford is a 81-year-old female with a history of hypertension, diastolic dysfunction, paroxysmal atrial flutter on chronic anticoagulation, and tobacco abuse who is seen in follow-up for hypercapnic respiratory failure. Sarah Beth feels okay today. She is not on oxygen. She denies sob, cp. LE edema at baseline. Review of Systems Review of Systems: All systems reviewed & are unremarkable except as noted in HPI and below Exam Narrative: General: obese, elderly, lethargic, somnolent but arousable Neuro: alert and oriented x4, answering all questions appropriately but occasionally would nod off in between questions, speech clear, no focal neuro deficits noted HEENMT: normocephalic, atraumatic, EOMI, sclerae anicteric Respiratory: clear to auscultation bilaterally, slightly labored shallow breathing Cardio: regular rate, regular rhythm with S1-S2 Abdomen: nondistended, normoactive bowel sounds, soft, nontender to palpation Extremities: 1+ pitting edema of the bilateral lower extremities, no erythema or tenderness to palpation Skin: no rashes or lesions, warm and dry Psych: appropriate mood and affect, judgment and insight intact Objective Data Vital Signs Vital Signs: Vital Signs - 24 hr 11/02/21 14:00 11/02/21 22:00 11/02/21 20:00 Temperature 98.9 F 97.4 F L Pulse Rate 68 75 75 Respiratory Rate 16 20 20 Blood Pressure 111/52 L 118/57 L Pulse Oximetry 97 97 97 Oxygen Delivery Nasal Cannula Oxygen Flow Rate 2 Fraction of Inspired Oxygen 0.21 11/02/21 23:26 11/03/21 01:30 11/03/21 05:39 Temperature 97.9 F Pulse Rate 88 80 73 Respiratory Rate 18 10 L 22 H Blood Pressure 121/56 L Pulse Oximetry 95 96 100 Oxygen Delivery BiPAP BiPAP Oxygen Flow Rate Fraction of Inspired Oxygen 11/03/21 08:02 11/03/21 08:00 11/03/21 10:30 Temperature Pulse Rate 76 77 Respiratory Rate Blood Pressure Pulse Oximetry 100 93 Oxygen Delivery Nasal Cannula Room Air Oxygen Flow Rate 2 Fraction of Inspired Oxygen
--- NOTE | 2021-11-03 12:15 | P.PNPL_ITS ---
Progress Note: A&P Assessment and Plan (1) Acute and chronic respiratory failure with hypercapnia: Code(s): J96.22 - Acute and chronic respiratory failure with hypercapnia Status: Acute Assessment and Plan: This 81 year old female has COPD by history, smoking, acute on chronic acute on chronic hypercapnic hypoxemic respiratory failure. She has not used oxygen at home before this admission, today 11/03/21, saturation is ok on Room Air. She is a candidate for NPPV, noninvasive positive-pressure ventilator, and AVAPS AE settings were ordered 11/02/2021. These will help determine what her home settings will be, now on generic settings based on age and ht, ideal body weight. She qualifies of NPPV based on chronic lung disease and her ABGs, as she has tried BiPAP and failed, BiPAP settings were /. I am going to assume she has COPD, because she has the diagnosis. Add Trelegy. Her med list does not show inhalers at home. Her COPD may need to be treated. Triple inhaler = Trelegy 100 one puff a day, p.r.n. beta agonist like levalbuterol as she has had tachyarrhythmias, tobacco cessation, proper O2 with education to not overuse O2 at the time of discharge, physical therapy, out patient PFTs, probable cardiopulmonary rehab. She needs to stay current on all vaccinations. Not clear what the driving problem is this admission. She used O2 on the admission October 22 through October 25 however did not go home on O2; had normal CO2 on her chemistries, does not have a definitive diagnosis of COPD and is not on inhalers. She is having atrial rhythm disturbances which suggests she may have more lung disease than appreciated. She may have right heart dysfunction. We will keep her another 1-2 days and repeat ABG on AVAPS AE. She will need outpatient follow-up, pulmonary function test in 6-8 weeks. Add Trelegy once a day and nasal ipratropium for nasal drainage. d/w [place] Palafox. (2) Rhinitis: Code(s): J31.0 - Chronic rhinitis Status: Acute Assessment and Plan: copious clear nasal secretions; start nasal ipratropium TID (3) Pulmonary hypertension: Code(s): I27.20 - Pulmonary hypertension, unspecified Status: Acute Assessment and Plan: Elevated PA systolic pressure on recent echo 10/21/21, 58 mmHg. She has mitral regurgitation. Her pulmonary hypertension is multifactorial, COPD, hypoxemia, s uspected obstructive sleep apnea which is not treated. She is not sure if she snores, she sometimes wakes with a dry mouth. She is sleepy during the daytime and she takes naps. (4) COPD (chronic obstructive pulmonary disease): Code(s): J44.9 - Chronic obstructive pulmonary disease, unspecified Status: Acute Assessment and Plan: COPD by history, although I do not see changes of emphysema on her chest CT and there are no PFTS for evaluation. She is not on inhalers here in the hospital. She is short of breath walking across the room which has been worse over the l ast few weeks. She has known diastolic dysfunction with decompensation. Shortness of breath is multifactorial and she may have COPD but even with a long smoking history it is difficult to confirm. Most people who smoke do not get COPD, only 15%. She has a chronic cough which she says is worse when she has sinus problems with drainage in the back of her throat. She does not have much sputum; she has shortness of breath, occasional wheezing; does not have recurrent respiratory infections or COPD exacerbations even once a ye
--- NOTE | 2021-11-03 14:40 | PCRCNOTE ---
HOME O2 AND TRILOGY SET UP WITH [facility]. PHONE NUMBER [phone]
[2021-11-03] MEDS: MELATONIN 5 MG TABLET PO (21:24)
[2021-11-03] MEDS: DOXAZOSIN MESYLATE 4 MG TABLET 8 MG PO (21:24)
[2021-11-03] MEDS: traZODone HCL 50 MG TABLET 100 MG PO (21:24)
[2021-11-04] VITALS (7 sets, daily range): BP systolic 103–123; BP diastolic 53–68; PULSE 68–85; RESP 18–20; TEMP 36.4–36.6; O2SAT 90–98
[2021-11-04 05:57] LABS: Basophils Percent Auto 0.2 % (0.2-1.2); Eosinophils Absolute Auto 0.2 K/mm3 (0-0.3); Eosinophils Percent Auto 1.8 % (0-4.4); Hematocrit 33.1 % (37.0-47.0); Immature Granulocyte Absolute 0.04 K/mm3 (0.00-0.031); Immature Granulocyte Percent A 0.5 % (0-0.5); Lymphocytes Absolute Auto 0.62 K/mm3 (0.9-3.2); Mean Corpuscular HGB Conc 30.2 g/dl (32-36); Mean Corpuscular Hemoglobin 29.6 pg (26-34); Mean Corpuscular Volume 97.9 fl (80-100); Mean Platelet Volume 9.8 fl (7.4-10.4); Monocytes Absolute Auto 0.9 K/mm3 (0.1-0.6); Monocytes Percent Auto 9.9 % (2.6-8.5); Neutrophils Absolute Auto 7.1 K/mm3 (1.3-6.7); Neutrophils Percent Auto 80.6 % (45.5-73.1); Platelet Count Result 219 k/mm3 (150-375); Red Blood Count 3.38 M/mm3 (4.2-5.4); Red Cell Distribution Width 13.9 % (11.5-14.5); White Blood Count 8.9 K/mm3 (4.5-10.0)
[2021-11-04 06:06] LABS: Blood Urea Nitrogen 22 mg/dL (7-17); Calcium 7.9 mg/dL (8.4-10.2); Carbon Dioxide > 40 mmol/L (22-30); Chloride 95 mmol/L (98-107); Estimated CRCL calculation 41 ml/min; Estimated Glomerular Filt Rate 48; Glucose 108 mg/dL (65-110); Potassium 4.1 mmol/L (3.4-5.0); Sodium 135 mmol/L (137-145)
--- NOTE | 2021-11-04 07:53 | PM.IMPN ---
Progress Note: A&P Assessment and Plan (1) Acute and chronic respiratory failure with hypercapnia: Code(s): J96.22 - Acute and chronic respiratory failure with hypercapnia Status: Acute Assessment and Plan: Presented with increased shortness of breath. ABG with evidence of hypercapnia Has COPD listed and is a lifelong smoker, however no formal dx has been made by a milk bottling machine operator and she was not on home oxygen or inhalers prior to admission Pulm consulted for further recommendations Not clear what the real problem is causing her respiratory failure. It does not appear necessarily chronic as she had no issues prior to admission a couple of weeks ago. repeat abg tomorrow on AVAPS Further management per pulm, appreciate recommendations 11/04: Patient's not tolerate AVAPS well last night, will defer further management pulmonology, appreciate their consultation (2) Diastolic congestive heart failure: Code(s): I50.30 - Unspecified diastolic (congestive) heart failure Status: Acute Assessment and Plan: Appears clinically compensated with the exception of lower extremity edema which is chronic and unchanged Received IV Lasix in the ED Continue p.o. furosemide 20 mg daily Continue spironolactone 12.5 mg daily Continue metoprolol succinate 25 mg 11/04: Continue current medications, appears euvolemic (3) Chronic kidney disease, stage 3: Code(s): N18.30 - Chronic kidney disease, stage 3 unspecified Status: Acute Assessment and Plan: At baseline with a creatinine of 1.1 (4) Hypokalemia: Code(s): E87.6 - Hypokalemia Status: Acute Assessment and Plan: Resolved (5) Paroxysmal atrial flutter: Code(s): I48.92 - Unspecified atrial flutter Status: Acute Assessment and Plan: Rate is controlled Continue Eliquis diagnosed during recent admission on 10/20/21 (6) Rhinitis: Code(s): J31.0 - Chronic rhinitis Status: Acute Assessment and Plan: Some concern for CSF rhinorrhea, will send sample of nasal fluid for Beta-2 transferrin testing Subjective Date/time seen: 11/04/21 07:53 Interval history: Patient states she feels awful and slept terribly. No overnight events noted, however. No chest pain or shortness of breath. No nausea, vomiting or diarrhea. No fevers or chills. Review of Systems Review of Systems: 12 point review of systems was assessed and was negative except as noted in the HPI All systems reviewed & are unremarkable except as noted in HPI and below Exam Narrative: General: Somnolent but easily arousable, alert and oriented but uncooperative HEENT: Atraumatic, normocephalic, mucous membranes moist CV: Regular rate and rhythm, S1, S2 Lungs: Clear to auscultation bilaterally, no rales or crackles noted, no wheezes, good air entry Abdomen: Soft, nontender, nondistended Extremities: Normal to inspection Skin: No rashes noted, no lesions or wounds seen Psych: Euthymic, normal affect Objective Data Vital Signs Vital Signs: Vital Signs - 24 hr 11/03/21 08:02 11/03/21 08:00 11/03/21 10:30 Temperature Pulse Rate 76 77 Respiratory Rate Blood Pressure Pulse Oximetry 100 93 Oxygen Delivery Nasal Cannula Room Air Oxygen Flow Rate 2 11/03/21 10:35 11/03/21 10:40 11/03/21 10:45 Temperature Pulse Rate 99 102 H 101 H Respiratory Rate Blood Pressure Pulse Oximetry 87 L 88 L 90 Oxygen Delivery Room Air Nasal Cannula Nasal Cannula Oxygen Flow Rate 1 2 11/03/21 11:10 11/03/21 14:00 11/03/21 16:09 Temperature 96.4 F L Pulse Rate 78 82 Respiratory Rate 18 Blood Pressure 105/50 L Pulse Oximetry 93 92 94 Oxygen Delivery Room Air Oxygen Flow Rate 11/03/21 21:45 11/03/21 20:00 11/04/21 05:55 Temperature 98.9 F 97.6 F Pulse Rate 84 85 Respiratory Rate 20 18 Blood Pressure 122/55 L 103/68 Pulse Oximetry 93 9
[2021-11-04] MEDS: METOPROLOL SUCCINATE EXT REL 25 MG TABCR PO (08:04)
[2021-11-04] MEDS: IPRATROPIUM NASAL SPRAY 0.03% 15 ML BOTTLE 2 SPRAY NASAL ×3 (08:04→16:09)
[2021-11-04] MEDS: APIXABAN 2.5 MG TABLET PO ×2 (08:05→20:31)
[2021-11-04] MEDS: SPIRONOLACTONE 12.5 MG TABLET PO (08:05)
[2021-11-04] MEDS: FUROSEMIDE 20 MG TABLET PO (08:05)
[2021-11-04] MEDS: ACETAMINOPHEN 325 MG TABLET 650 MG PO ×2 (08:07→23:42)
[2021-11-04] MEDS: FLUTICASONE/UMECLIDIN/VILANTER 100-62.5-25 MCG ELLIPTA 1 PUFF INHALATION (08:56)
--- NOTE | 2021-11-04 10:31 | PCOTNOTE ---
Attempted to see patient this am, however patient sleeping upon entering and was difficult to arouse. Pt declined activity at this time stating she was too tired.
--- NOTE | 2021-11-04 13:21 | PCOTNOTE ---
Attempted to see pt for occupational therapy 2x today, however, at visit pt stated I'm too tired...you guys are wearing me out... Pt was educated on the importance of increase participation for independence with daily occupations, however, pt continued to refuse. Will continue per poc duration/frequency tomorrow.
[2021-11-04] MEDS: MELATONIN 5 MG TABLET PO (20:31)
[2021-11-04] MEDS: DOXAZOSIN MESYLATE 4 MG TABLET 8 MG PO (20:31)
[2021-11-04] MEDS: traZODone HCL 50 MG TABLET 100 MG PO (20:31)
[2021-11-05 06:00] VITALS: BP 119/60; PULSE 68; RESP 20; TEMP 36.4; O2SAT 100
[2021-11-05] MEDS: FLUTICASONE/UMECLIDIN/VILANTER 100-62.5-25 MCG ELLIPTA 1 PUFF INHALATION (07:18)
[2021-11-05 07:19] VITALS: PULSE 62; RESP 18
[2021-11-05 07:20] VITALS: PULSE 62; RESP 20; O2SAT 94
[2021-11-05 08:15] VITALS: PULSE 72
[2021-11-05] MEDS: IPRATROPIUM NASAL SPRAY 0.03% 15 ML BOTTLE 2 SPRAY NASAL ×3 (08:15→16:26)
[2021-11-05] MEDS: SPIRONOLACTONE 12.5 MG TABLET PO (08:15)
[2021-11-05] MEDS: METOPROLOL SUCCINATE EXT REL 25 MG TABCR PO (08:15)
[2021-11-05] MEDS: FUROSEMIDE 20 MG TABLET PO (08:15)
[2021-11-05] MEDS: APIXABAN 2.5 MG TABLET PO ×2 (08:15→20:25)
--- NOTE | 2021-11-05 08:48 | PM.IMPN ---
Progress Note: A&P Assessment and Plan (1) Acute and chronic respiratory failure with hypercapnia: Code(s): J96.22 - Acute and chronic respiratory failure with hypercapnia Status: Acute Assessment and Plan: 11/04: Patient did not tolerate AVAPS well last night, will defer further management pulmonology, appreciate their consultation 11/05: Reviewed ApneaLink report, inadequate data, recheck tonight, suspect multifactorial etiology to patient's hypercapnic respiratory failure including significant lung disease/COPD, diastolic heart failure, aortic valve stenosis, component of obesity hypoventilation syndrome, suspect possible sleep apnea, as well as some underlying chronic generalized anxiety disorder contributing to shallow breathing at baseline, appreciate pulmonology consult. Will recheck ABG this morning, long discussion with patient regarding compliance with AVAPS. (2) Diastolic congestive heart failure: Code(s): I50.30 - Unspecified diastolic (congestive) heart failure Status: Acute Assessment and Plan: 11/04: Continue current medications, appears euvolemic 11/05: Unchanged (3) Chronic kidney disease, stage 3: Code(s): N18.30 - Chronic kidney disease, stage 3 unspecified Status: Acute Assessment and Plan: At baseline with a creatinine of 1.1 11/05: Unchanged (4) Hypokalemia: Code(s): E87.6 - Hypokalemia Status: Acute Assessment and Plan: Resolved (5) Paroxysmal atrial flutter: Code(s): I48.92 - Unspecified atrial flutter Status: Acute Assessment and Plan: Rate is controlled Continue Eliquis diagnosed during recent admission on 10/20/21 (6) Rhinitis: Code(s): J31.0 - Chronic rhinitis Status: Acute Assessment and Plan: Some concern for CSF rhinorrhea, will send sample of nasal fluid for Beta-2 transferrin testing (7) Pulmonary hypertension: Code(s): I27.20 - Pulmonary hypertension, unspecified Status: Acute (8) Aortic stenosis, mild: Code(s): I35.0 - Nonrheumatic aortic (valve) stenosis Status: Acute (9) UTI (urinary tract infection): Code(s): N39.0 - Urinary tract infection, site not specified Status: Acute Assessment and Plan: Abnormal urinalysis consistent with UTI, Rocephin started November 03, 2021, end date will be November 09, 2021 if cultures are sensitive to Rocephin, preliminary urine culture showing Gram-negative bacilli, follow-up cultures (10) Tobacco abuse: Code(s): Z72.0 - Tobacco use Status: Acute Subjective Date/time seen: 11/05/21 08:48 Interval history: Patient continues to feel weak. She is not able to tolerate BiPAP or AVAPS. Spent extensive time discussing need for 1 of these to blow off CO2 and alleviate her hypercapnic respiratory failure symptoms. Patient seems to understand, however, states the noises and pressure of the machine is intolerable to her. No overnight events noted. No chest pain or worsening shortness of breath. No nausea, vomiting or diarrhea. No fevers or chills. Review of Systems Review of Systems: All systems reviewed & are unremarkable except as noted in HPI and below Exam Narrative: General: Somnolent but easily arousable, alert and oriented but uncooperative HEENT: Atraumatic, normocephalic, mucous membranes moist CV: Regular rate and rhythm, S1, S2 Lungs: Clear to auscultation bilaterally, diminished throughout, no wheezes noted Abdomen: Soft, nontender, nondistended Extremities: Normal to inspection Skin: No rashes noted, no lesions or wounds seen Psych: Euthymic, normal affect Objective Data Vital Signs Vital Signs: Vital Signs - 24 hr 11/04/21 08:56 11/04/21 08:59 11/04/21 14:00 Temperature 97.7 F Pulse Rate 78 78 68 Respiratory Rate 20 20 18 Blood Pressure 105/53 L Pulse Oximetry 90 95 Oxygen Delivery Room Air 11/04/21 21:49
[2021-11-05 09:31] LABS: Basophils Percent Auto 0.4 % (0.2-1.2); Eosinophils Absolute Auto 0.2 K/mm3 (0-0.3); Hematocrit 31.4 % (37.0-47.0); Hemoglobin 9.4 g/dL (12.0-15.0); Immature Granulocyte Absolute 0.03 K/mm3 (0.00-0.031); Immature Granulocyte Percent A 0.4 % (0-0.5); Lymphocytes Absolute Auto 0.64 K/mm3 (0.9-3.2); Lymphocytes Percent Auto 8.6 % (18.3-44.2); Mean Corpuscular HGB Conc 29.9 g/dl (32-36); Mean Corpuscular Hemoglobin 29.8 pg (26-34); Mean Corpuscular Volume 99.7 fl (80-100); Mean Platelet Volume 10.3 fl (7.4-10.4); Monocytes Absolute Auto 0.5 K/mm3 (0.1-0.6); Monocytes Percent Auto 6.6 % (2.6-8.5); Neutrophils Absolute Auto 6.1 K/mm3 (1.3-6.7); Platelet Count Result 205 k/mm3 (150-375); Red Blood Count 3.15 M/mm3 (4.2-5.4); Red Cell Distribution Width 14.3 % (11.5-14.5); White Blood Count 7.5 K/mm3 (4.5-10.0)
[2021-11-05 09:33] LABS: Alveolar/Arterial O2 Gradient 19.3 mmHg; Fractional Inspired Oxygen 21 %; HCO3 ABG 36.4 mEq/l (22.0-26.0); Oxygen Content ABG 16.2 %vol (16.0-22.0); Oxygen Saturation ABG 94.4 % (95.0-100.0); Oxyhemoglobin 92.7 % THb (90.0-100.0); PCO2 ABG 51.7 mmHg (35.0-45.0); PO2 ABG 68.5 mmHg (80.0-100.0); PO2 FiO2 Ratio Arterial Blood 3.26 %; Total Hemoglobin 12.4 g/dL (12.0-18.0); pH ABG 7.466 (7.350-7.450)
[2021-11-05 09:35] LABS: Device ROOM AIR; Modified Allen's Test Pass; Site Drawn LEFT RADIAL
[2021-11-05 09:38] LABS: Platelet Estimate Adequate (Adequate)
[2021-11-05 09:39] LABS: Hypochromasia 1+ (NORMAL)
[2021-11-05 09:41] LABS: Alanine Aminotransferase 10 U/L (6-35); Albumin Level 2.9 g/dL (3.5-5.1); Alkaline Phosphatase 76 U/L (38-126); Anion Gap 2 mmol/L (8-16); Aspartate Amino Transferase 16 U/L (14-36); Bilirubin,Total 0.4 mg/dL (0.2-1.3); Blood Urea Nitrogen 21 mg/dL (7-17); Calcium 7.7 mg/dL (8.4-10.2); Carbon Dioxide 35 mmol/L (22-30); Chloride 98 mmol/L (98-107); Estimated CRCL calculation 41 ml/min; Estimated Glomerular Filt Rate 48; Glucose 157 mg/dL (65-110); Potassium 3.7 mmol/L (3.4-5.0); Sodium 135 mmol/L (137-145)
[2021-11-05 09:50] LABS: NT Pro B Type Natriuretic Pept 3030 pg/mL (5-100)
[2021-11-05 10:18] LABS: Procalcitonin 0.1 ng/mL
[2021-11-05 14:00] VITALS: BP 110/51; PULSE 70; RESP 20; TEMP 35.9; O2SAT 97
--- NOTE | 2021-11-05 15:22 | PM.PNPUL ---
Progress Note: A&P Assessment and Plan (1) Acute and chronic respiratory failure with hypercapnia: Code(s): J96.22 - Acute and chronic respiratory failure with hypercapnia Status: Acute Assessment and Plan: This 81 year old female has COPD by history, smoking, acute on chronic acute on chronic hypercapnic hypoxemic respiratory failure. She has not used oxygen at home before this admission, today 11/03/21, saturation is ok on Room Air. She is a candidate for NPPV, noninvasive positive-pressure ventilator, and AVAPS AE settings were ordered 11/02/2021. These will help determine what her home settings will be, now on generic settings based on age and ht, ideal body weight. She qualifies of NPPV based on chronic lung disease and her ABGs, as she has tried BiPAP and failed, BiPAP settings were /. I am going to assume she has COPD, because she has the diagnosis. Add Trelegy. Her med list does not show inhalers at home. Her COPD may need to be treated. Triple inhaler = Trelegy 100 one puff a day, p.r.n. beta agonist like levalbuterol as she has had tachyarrhythmias, tobacco cessation, proper O2 with education to not overuse O2 at the time of discharge, physical therapy, out patient PFTs, probable cardiopulmonary rehab. She needs to stay current on all vaccinations. Not clear what the driving problem is this admission. She used O2 on the admission October 22 through October 25 however did not go home on O2; had normal CO2 on her chemistries, does not have a definitive diagnosis of COPD and is not on inhalers. She is having atrial rhythm disturbances which suggests she may have more lung disease than appreciated. She may have right heart dysfunction. We will keep her another 1-2 days and repeat ABG on AVAPS AE. She will need outpatient follow-up, pulmonary function test in 6-8 weeks. Add Trelegy once a day and nasal ipratropium for nasal drainage. d/w [place] Palafox. (2) Rhinitis: Code(s): J31.0 - Chronic rhinitis Status: Acute Assessment and Plan: copious clear nasal secretions; start nasal ipratropium TID (3) Pulmonary hypertension: Code(s): I27.20 - Pulmonary hypertension, unspecified Status: Acute Assessment and Plan: Elevated PA systolic pressure on recent echo 10/21/21, 58 mmHg. She has mitral regurgitation. Her pulmonary hypertension is multifactorial, COPD, hypoxemia, suspected obstructive sleep apnea which is not treated. She is not sure if she snores, she sometimes wakes with a dry mouth. She is sleepy during the daytime and she takes naps. (4) COPD (chronic obstructive pulmonary disease): Code(s): J44.9 - Chronic obstructive pulmonary disease, unspecified Status: Acute Assessment and Plan: COPD by history, although I do not see changes of emphysema on her chest CT and there are no PFTS for evaluation. She is not on inhalers here in the hospital. She is short of breath walking across the room which has been worse over the last few weeks. She has known diastolic dysfunction with decompensation. Shortness of breath is multifactorial and she may have COPD but even with a long smoking history it is difficult to confirm. Most people who smoke do not get COPD, only 15%. She has a chronic cough which she says is worse when she has sinus problems with drainage in the back of her throat. She does not have much sputum; she has shortness of breath, occasional wheezing; does not have recurrent respiratory infections or COPD exacerbations even once a year. I would recommend PFTs when she is out of the hospital, off tobacco, and at a better baseline. (5) Tobacco abuse: Code(s): Z72.0 - Tobacco use Status: [facility]
[2021-11-05] MEDS: guaiFENesin 600 MG/DEXTROMETHORPHAN 30 MG SR TAB 12 HR 1 TAB PO ×2 (16:26→20:25)
[2021-11-05] MEDS: DOXAZOSIN MESYLATE 4 MG TABLET 8 MG PO (20:25)
[2021-11-05] MEDS: traZODone HCL 50 MG TABLET 100 MG PO (20:25)
[2021-11-05] MEDS: MELATONIN 5 MG TABLET PO (20:25)
[2021-11-05] MEDS: ACETAMINOPHEN 325 MG TABLET 650 MG PO (20:28)
[2021-11-05 22:00] VITALS: BP 108/58; PULSE 65; RESP 22; TEMP 36.6; O2SAT 93
[2021-11-06 05:50] VITALS: BP 110/53; PULSE 72; RESP 23; TEMP 36.3; O2SAT 97
[2021-11-06 08:16] LABS: Basophils Percent Auto 0.3 % (0.2-1.2); Eosinophils Absolute Auto 0.2 K/mm3 (0-0.3); Eosinophils Percent Auto 2.2 % (0-4.4); Hematocrit 33.6 % (37.0-47.0); Hemoglobin 10.5 g/dL (12.0-15.0); Immature Granulocyte Absolute 0.03 K/mm3 (0.00-0.031); Immature Granulocyte Percent A 0.4 % (0-0.5); Lymphocytes Absolute Auto 0.64 K/mm3 (0.9-3.2); Lymphocytes Percent Auto 8.3 % (18.3-44.2); Mean Corpuscular HGB Conc 31.3 g/dl (32-36); Mean Corpuscular Hemoglobin 30.3 pg (26-34); Mean Corpuscular Volume 96.8 fl (80-100); Mean Platelet Volume 9.9 fl (7.4-10.4); Monocytes Absolute Auto 0.6 K/mm3 (0.1-0.6); Monocytes Percent Auto 8.3 % (2.6-8.5); Neutrophils Absolute Auto 6.2 K/mm3 (1.3-6.7); Neutrophils Percent Auto 80.5 % (45.5-73.1); Platelet Count Result 224 k/mm3 (150-375); Red Blood Count 3.47 M/mm3 (4.2-5.4); Red Cell Distribution Width 14.2 % (11.5-14.5); White Blood Count 7.7 K/mm3 (4.5-10.0)
[2021-11-06 08:32] LABS: Alanine Aminotransferase 10 U/L (6-35); Albumin Level 3.2 g/dL (3.5-5.1); Alkaline Phosphatase 93 U/L (38-126); Anion Gap 1 mmol/L (8-16); Aspartate Amino Transferase 18 U/L (14-36); Bilirubin,Total 0.4 mg/dL (0.2-1.3); Blood Urea Nitrogen 18 mg/dL (7-17); Carbon Dioxide 37 mmol/L (22-30); Chloride 99 mmol/L (98-107); Estimated CRCL calculation 41 ml/min; Estimated Glomerular Filt Rate 48; Glucose 92 mg/dL (65-110); Potassium 3.8 mmol/L (3.4-5.0); Sodium 137 mmol/L (137-145)
[2021-11-06] MEDS: FLUTICASONE/UMECLIDIN/VILANTER 100-62.5-25 MCG ELLIPTA 1 PUFF INHALATION (08:57)
[2021-11-06 08:58] VITALS: O2SAT 96
[2021-11-06] MEDS: IPRATROPIUM NASAL SPRAY 0.03% 15 ML BOTTLE 2 SPRAY NASAL ×2 (09:48→13:59)
[2021-11-06] MEDS: FUROSEMIDE 20 MG TABLET PO (09:49)
[2021-11-06] MEDS: APIXABAN 2.5 MG TABLET PO (09:50)
[2021-11-06] MEDS: SPIRONOLACTONE 12.5 MG TABLET PO (09:50)
[2021-11-06] MEDS: guaiFENesin 600 MG/DEXTROMETHORPHAN 30 MG SR TAB 12 HR 1 TAB PO (09:50)
[2021-11-06 11:36] VITALS: BMI 36.1
--- NOTE | 2021-11-06 12:14 | PM.PNPUL ---
Progress Note: A&P Assessment and Plan (1) COPD (chronic obstructive pulmonary disease): Code(s): J44.9 - Chronic obstructive pulmonary disease, unspecified Status: Acute Assessment and Plan: COPD by history, current tobacco use, no changes of emphysema on her chest CT and there are no PFTS for evaluation. She have evidence of chronic hypercarbic respiratory failure with a blood gas of 7.47/52/68 on room air on 11/05/2021. Echocardiogram on 10/20/2021 shows LVEF of 55-60, abnormal diastolic dysfunction, severely enlarged left atrium, moderately enlarged right atrium, moderate aortic valve sclerosis, mild aortic valve stenosis with a mean gradient of 9, mild to moderate aortic valve regurgitation, moderate mitral valve regurgitation, mild tricuspid regurgitation with an estimated pulmonary arterial systolic pressure of 58. She has hypoxemic respiratory failure which has improved during this hospitalization with treatment for COPD and fluid overload with diuresis. she has nocturnal hypoxemia on room air with an overnight oximetry on 11/05 with a baseline saturation of 92%, lowest saturation 80%, time with saturation less than or equal to 88% was 140 minutes or 39% of the monitored time. Of note patient's oxygen desaturation index was 26 and the apnea-hypopnea index was 23. Patient is suitable for discharge from a pulmonary perspective on these Pulmonary medications: Trelegy 100-62.5-25 at 1 puff q.day Rescue albuterol 2 puffs q.4 hours p.r.n. shortness of breath or wheezing ipratroprium nasal [place], 2 sprays each nostril t.i.d. Oxygen at rest and with ambulation per formal home O2 assessment which I have ordered Noninvasive ventilation with AVAPS-AE mode when she naps and sleeps at night with 2 L bleed in ( set up through [employer]) Diuretic dose per hospitalist. PFTs and outpatient overnight O2 assessment on AVAPS-AE with 2 L bleed in as outpatient when she off tobacco and at a better baseline. Discussed with Petra Castrejon (2) Tobacco abuse: Code(s): Z72.0 - Tobacco use Status: Acute Assessment and Plan: Patient has been counseled on tobacco cessation. is critical that she quit smoking. And she has been informed that she needs to do this. Follow-up as an outpatient. (3) Acute on chronic diastolic (congestive) heart failure: Code(s): I50.33 - Acute on chronic diastolic (congestive) heart failure Status: Acute Assessment and Plan: echocardiogram as above. Patient continues with elevated BNP currently on Aldactone 12.5, Lasix 20 mg p.o. q.day, metoprolol 25 mg p.o. q.a.m. and Eliquis 2.5 mg p.o. q.12 hours For her paroxysmal atrial fibrillation which was diagnosed on 10/20/2021. appears euvolemic today and her weight is 95.5 kg. Subjective Date/time seen: 11/06/21 12:14 Interval history: 11/05/21? 15:23 Interval history: Hospital follow up: Sarah Beth Stafford is a 81 year old female with hypertension, diastolic dysfunction, moderate pulmonary hypertension and moderate TR. She is a smoker, admitted 10-22-2021 through 10-25-2021 with exacerbation of congestive heart failure, elevated troponin, acute kidney injury and atrial flutter.? Anticoagulation was started at this time. She however did not meet criteria for home O2; now she is back with worsening hypercapnic respiratory failure, admitted October 27, and I saw her November 02 in consultation for worsening hypercapnic and hypoxemic respiratory failure, elevated pCO2 with failed BiPAP 03/27. CTA shows no PE, pleural effusions, atelectasis, reflux of contrast in the IVC consistent with right heart decompensation, cardiomegaly. No focal pneumonia. She does not have pneumonia symptoms. 10/27/2021 chest CTA No evidence of pulmonary embolism; Cardiomegaly, reflux of contrast material into the inferior vena cava, suggesting right ventricular dysfunction; Small pleural effusions; Prominent bibasilar atelectasis Work:? [employer]
[2021-11-06 13:34] VITALS: PULSE 84; O2SAT 93
[2021-11-06 13:40] VITALS: PULSE 124; O2SAT 90
[2021-11-06 13:42] VITALS: PULSE 120; O2SAT 91
[2021-11-06 14:00] VITALS: BP 111/45; PULSE 72; RESP 30; TEMP 36.7; O2SAT 94
--- NOTE | 2021-11-06 14:22 | HOMEO2EVAL ---
Evaluation was performed at [facility] Home Oxygen Evaluation RC: Home Oxygen (O2) Evaluation Start: 11/06/21 12:34 Freq: ONCE Status: Active Protocol: RPE Activity Type Activity Date Activity User E-sign Co-sign Detail Recorded Client Recorded Date Recorded By Document 11/06/21 13:34 KRM [id number] 11/06/21 14:22 KRM Document 11/06/21 13:40 KRM [id number] 11/06/21 14:22 KRM Document 11/06/21 13:42 KRM [email or web address] 11/06/21 14:22 KRM 11/06/21 11/06/21 11/06/21 13:34 13:40 13:42 Home O2 Evaluation Test Phase Resting Exercise Exercise Oxygen Delivery Room Air Room Air Room Air Pulse Oximetry (90-100 %) 93 90 91 Pulse Rate (60-100 beats/min) 84 124 H 120 H Activity Tolerance Fair Fair Treatment Charges O2 Evaluation - Inpatient
--- NOTE | 2021-11-06 14:46 | P.DS_ITS ---
DS: Admitting Diagnosis Discharge Date 11/06/2021 Admitting Diagnosis Respiratory failure DS: Discharge Diagnosis Discharge Diagnosis (1) Acute and chronic respiratory failure with hypercapnia: Code(s): J96.22 - Acute and chronic respiratory failure with hypercapnia Status: Acute Assessment and Plan: Presented with SOB, ABG with findings of worsened hypercapnia. * Patient has COPD based on history though no PFTs completed and no evidence of emphysematous changes on CT * May have component of obesity hypoventilation syndrome and also suspect CHELSEA though she has not been diagnosed with this. * Started on BiPAP with improvement of pCO2 * She had apnea link completed which demonstrated need for 2 L supplemental O2 bleed in at night * Home O2 eval performed on day of discharge with no oxygen requirement with rest or ambulation. * Noninvasive ventilation arranged for home with AVAPS-AE mode at bedtime or with naps. 2 L bleed in * Begin Trelegy inhaler 1 puff daily * Albuterol as needed for rescue inhaler * Will need outpatient pulmonology follow up for PFTs (2) Diastolic congestive heart failure: Code(s): I50.30 - Unspecified diastolic (congestive) heart failure Status: Acute Assessment and Plan: Echo completed 10/20/21 with normal EF, abnormal diastolic function, enlarged left atrium. * She was euvolemic on exam * Last hospitalization one week prior diuretics were adjusted and she will continue this regimen: furosemide 20 mg daily, spironolactone 12.5 mg daily. * She has outpatient follow up scheduled with installation tech Dr. Polo (3) Chronic kidney disease, stage 3: Code(s): N18.30 - Chronic kidney disease, stage 3 unspecified Status: Acute Assessment and Plan: Renal function consistent with baseline (4) Hypokalemia: Code(s): E87.6 - Hypokalemia Status: Acute Assessment and Plan: Resolved. Potassium remained stable (5) Paroxysmal atrial flutter: Code(s): I48.92 - Unspecified atrial flutter Status: Acute Assessment and Plan: Rate remained controlled * Continue Eliquis * New diagnosis from recent admission 10/20/21 (6) Rhinitis: Code(s): J31.0 - Chronic rhinitis Status: Acute Assessment and Plan: Patient with allergic rhinitis which improved significantly with ipratropium nasal spray * Continue ipratropium nasal spray for 1 week (7) UTI (urinary tract infection): Code(s): N39.0 - Urinary tract infection, site not specified Status: Acute Assessment and Plan: Urine culture with growth of >100k Klebsiella oxytoca. * Received IV Rocephin based on susceptibility * Continue PO Cefdinir to complete full course of treatment (8) Tobacco abuse: Code(s): Z72.0 - Tobacco use Status: Acute Assessment and Plan: Patient with active tobacco use * Counseled on cessation for over 5 minutes * Patient motivated to quit smoking * Tobacco cessation imperative with home oxygen DS: Summary Hospital Course Hospital Course: Date of admission: 10/27/2021 Date of discharge: 11/06/2021 Sarah Beth Stafford is a 81-year-old female with a history of hypertension, diastolic dysfunction, paroxysmal atrial flutter on chronic anticoagulation, tobacco abuse, and recent hospitalization discharged 2 days prior?who presented to the emergency department on 10/27/2021 with complaints of increased shortness of breath. On presentation to the ED, she was hypoxic
--- NOTE | 2021-11-06 14:46 | PM.DS ---
DS: Admitting Diagnosis Discharge Date 11/06/2021 Admitting Diagnosis Respiratory failure DS: Discharge Diagnosis Discharge Diagnosis (1) Acute and chronic respiratory failure with hypercapnia: Code(s): J96.22 - Acute and chronic respiratory failure with hypercapnia Status: Acute Assessment and Plan: Presented with SOB, ABG with findings of worsened hypercapnia. Patient has COPD based on history though no PFTs completed and no evidence of emphysematous changes on CT May have component of obesity hypoventilation syndrome and also suspect CHELSEA though she has not been diagnosed with this. Started on BiPAP with improvement of pCO2 She had apnea link completed which demonstrated need for 2 L supplemental O2 bleed in at night Home O2 eval performed on day of discharge with no oxygen requirement with rest or ambulation. Noninvasive ventilation arranged for home with AVAPS-AE mode at bedtime or with naps. 2 L bleed in Begin Trelegy inhaler 1 puff daily Albuterol as needed for rescue inhaler Will need outpatient pulmonology follow up for PFTs (2) Diastolic congestive heart failure: Code(s): I50.30 - Unspecified diastolic (congestive) heart failure Status: Acute Assessment and Plan: Echo completed 10/20/21 with normal EF, abnormal diastolic function, enlarged left atrium. She was euvolemic on exam Last hospitalization one week prior diuretics were adjusted and she will continue this regimen: furosemide 20 mg daily, spironolactone 12.5 mg daily. She has outpatient follow up scheduled with front attendant Dr. Polo (3) Chronic kidney disease, stage 3: Code(s): N18.30 - Chronic kidney disease, stage 3 unspecified Status: Acute Assessment and Plan: Renal function consistent with baseline (4) Hypokalemia: Code(s): E87.6 - Hypokalemia Status: Acute Assessment and Plan: Resolved. Potassium remained stable (5) Paroxysmal atrial flutter: Code(s): I48.92 - Unspecified atrial flutter Status: Acute Assessment and Plan: Rate remained controlled Continue Eliquis New diagnosis from recent admission 10/20/21 (6) Rhinitis: Code(s): J31.0 - Chronic rhinitis Status: Acute Assessment and Plan: Patient with allergic rhinitis which improved significantly with ipratropium nasal spray Continue ipratropium nasal spray for 1 week (7) UTI (urinary tract infection): Code(s): N39.0 - Urinary tract infection, site not specified Status: Acute Assessment and Plan: Urine culture with growth of >100k Klebsiella oxytoca. Received IV Rocephin based on susceptibility Continue PO Cefdinir to complete full course of treatment (8) Tobacco abuse: Code(s): Z72.0 - Tobacco use Status: Acute Assessment and Plan: Patient with active tobacco use Counseled on cessation for over 5 minutes Patient motivated to quit smoking Tobacco cessation imperative with home oxygen DS: Summary Hospital Course Hospital Course: Date of admission: 10/27/2021 Date of discharge: 11/06/2021 Sarah Beth Stafford is a 81-year-old female with a history of hypertension, diastolic dysfunction, paroxysmal atrial flutter on chronic anticoagulation, tobacco abuse, and recent hospitalization discharged 2 days prior?who presented to the emergency department on 10/27/2021 with complaints of increased shortness of breath. On presentation to the ED, she was hypoxic at 88% and required 2 L supplemental O2, BNP 8000, ABG with hypercapnia, CXR with cardiomegaly and interstitial edema. She was admitted to the hospitalist service for further evaluation management was seen in consultation by pulmonology. Please see above for further details. Patient had symptomatic improvement with above therapy and will continue with noninvasive ventilation at home for management of chronic hypercapnic respiratory failure. She will follow-up
== END 2021-11-06 15:50 | disposition home health service (06) | DRG 189 ==
LOC: ANHED 12:15 → ANH3MEDSUR 17:54
PROVIDERS: Emergency Medicine; Physician Assistant; Student in an Organized Health Care Education/Training Program; Admitting Provider Family Medicine; Emergency Provider Emergency Medicine; PCP Family Medicine; Visit Provider Internal Medicine
DX: J96.22 Acute and chronic respiratory failure with hypercapnia (principal); I50.33 Acute on chronic diastolic (congestive) heart failure; I13.0 Hypertensive heart and chronic kidney disease with heart failure and stage 1 through stage 4 chronic kidney disease, or unspecified chronic kidney disease; I48.92 Unspecified atrial flutter; N39.0 Urinary tract infection, site not specified; I27.20 Pulmonary hypertension, unspecified; N18.30 Chronic kidney disease, stage 3 unspecified; E87.6 Hypokalemia; I34.0 Nonrheumatic mitral (valve) insufficiency; F17.210 Nicotine dependence, cigarettes, uncomplicated; M19.90 Unspecified osteoarthritis, unspecified site; J31.0 Chronic rhinitis; J44.9 Chronic obstructive pulmonary disease, unspecified; I35.0 Nonrheumatic aortic (valve) stenosis; I87.2 Venous insufficiency (chronic) (peripheral); M54.50 Low back pain, unspecified; Z20.822 Contact with and (suspected) exposure to COVID-19; Z79.01 Long term (current) use of anticoagulants; Z79.899 Other long term (current) drug therapy
CPT/HCPCS: 36415; 36600; 71045; 71046; 71275; 80048; 80053; 81001; 82375; 82805; 83050; 83735; 83880; 84145; 85025; 85027; 87077; 87086; 87186; 93005; 94002; 94003; 94618; 94640; 96374; 96376; 97110; 97116; 97161; 97166; 97530; 97535; 99285; A9270; C9803; G0378; J0696; J1940; Q9967; U0003; U0005

== ENCOUNTER 2021-12-27 10:47 | Outpatient (CLI) | payer MEDICARE, SELFPAY ==
--- NOTE | 2021-12-29 09:02 | WPDPFTINT ---
PFT Procedure Performed PFT Procedure Performed Spirometry with Pre/Post Bronchodilator Plethysmography (Lung Vol) Flow Vol Loop PFT Interpretation Lung volumes were measured with the body plethysmography. The diminished total lung capacity and vital capacity are indicative of restrictive respiratory disease. Spirometry showed diminished expiratory flow rates and a normal FEV1 to FVC ratio 75%, consistent with restrictive respiratory disease. Following administration of a bronchodilator there was no significant increase in the expiratory flow rates. Lung diffusion capacity severely reduced at 49% predicted. The flow volume loop is consistent with restrictive respiratory disease. Impression: Mild to moderate restrictive respiratory disease. Severely reduced lung diffusion capacity.
--- NOTE | 2021-12-29 09:05 | WPDSIXMINUTE ---
Six Minute Walk Procedure Procedure Performed Pulmonary Stress Test (6 min walk) Six Minute Walk Six Minute Walk: This 6 minute walk test was carried out with the patient breathing ambient air. The pre walk oxyhemoglobin saturation was 93%. The patient walked about 122 m with 4 stops during testing due to shortness of breath. The oxyhemoglobin saturation during the walk remained in the range of 93% to 95%. The perceived dyspnea at baseline on the Rodrigo scale was 1 and increased to 5 at the end of the testing. Impression: No evidence of oxyhemoglobin desaturation on this testing. Total distance walked limited by shortness of breath and frequent stopping.
== END 2021-12-27 10:48 | disposition home or self-care (01) ==
LOC: ANHPFT 10:49
PROVIDERS: PCP Family Medicine; Visit Provider Internal Medicine Critical Care Medicine
DX: R06.02 Shortness of breath (principal); J44.9 Chronic obstructive pulmonary disease, unspecified
CPT/HCPCS: 94060; 94618; 94726; 94729

== ENCOUNTER 2022-06-26 13:58 | Outpatient (CLI) | payer MEDICARE, SELFPAY ==
[2022-06-26 18:36] LABS: Basophils Percent Auto 0.3 % (0.2-1.2); Eosinophils Absolute Auto 0.5 K/mm3 (0-0.3); Hematocrit 30.3 % (37.0-47.0); Hemoglobin 9.1 g/dL (12.0-15.0); Immature Granulocyte Absolute 0.02 K/mm3 (0.00-0.031); Immature Granulocyte Percent A 0.3 % (0-0.5); Lymphocytes Absolute Auto 0.75 K/mm3 (0.9-3.2); Lymphocytes Percent Auto 9.5 % (18.3-44.2); Mean Corpuscular Hemoglobin 28.6 pg (26-34); Mean Corpuscular Volume 95.3 fl (80-100); Mean Platelet Volume 10.4 fl (7.4-10.4); Monocytes Absolute Auto 0.6 K/mm3 (0.1-0.6); Monocytes Percent Auto 7.4 % (2.6-8.5); Neutrophils Percent Auto 76.5 % (45.5-73.1); Platelet Count Result 219 k/mm3 (150-375); Red Blood Count 3.18 M/mm3 (4.2-5.4); Red Cell Distribution Width 14.6 % (11.5-14.5); White Blood Count 7.9 K/mm3 (4.5-10.0)
[2022-06-26 20:24] LABS: Vitamin D 25 Hydroxy < 12.8 ng/mL
[2022-06-26 20:25] LABS: Alanine Aminotransferase 15 U/L (6-35); Albumin Level 3.5 g/dL (3.5-5.1); Alkaline Phosphatase 126 U/L (38-126); Anion Gap 5 mmol/L (8-16); Aspartate Amino Transferase 22 U/L (14-36); Bilirubin,Total 0.4 mg/dL (0.2-1.3); Blood Urea Nitrogen 16 mg/dL (7-17); Calcium 8.4 mg/dL (8.4-10.2); Carbon Dioxide 32 mmol/L (22-30); Chloride 98 mmol/L (98-107); Cholesterol 167 mg/dL (0-200); Estimated Glomerular Filt Rate 53; Glucose 93 mg/dL (65-110); HDL Direct 41 mg/dL; Potassium 4.1 mmol/L (3.4-5.0); Sodium 135 mmol/L (137-145); Triglycerides 113 mg/dL (<150)
[2022-06-26 20:33] LABS: NT Pro B Type Natriuretic Pept 3720 pg/mL (19.9-100)
[2022-06-26 20:39] LABS: LDL Cholesterol Direct 82 mg/dL
== END 2022-06-26 13:59 | disposition home or self-care (01) ==
LOC: ANHGOSHLAB 14:00
PROVIDERS: PCP Family Medicine; Visit Provider Nurse Practitioner
DX: R60.0 Localized edema (principal); E78.5 Hyperlipidemia, unspecified; E55.9 Vitamin D deficiency, unspecified; I50.9 Heart failure, unspecified; I11.0 Hypertensive heart disease with heart failure
CPT/HCPCS: 36415; 80053; 80061; 82306; 83880; 85025

== ENCOUNTER 2022-12-06 07:27 | Outpatient (CLI) | payer MEDICARE, SELFPAY ==
--- NOTE | 2022-12-06 07:39 | ECHO_ITS ---
Patient Info Name: Sarah Beth Stafford Age: 82 years : 1940 Gender: Female Ht: 64 in Wt: 194 lbs BSA: 2.03 m2 HR: 77 bpm BP: 127 / 65 mmHg Technical Quality: Good Exam Date: 12/06/2022 7:42 AM Exam Location: [facility] Patient Status: Outpatient Admit Date: 12/06/2022 Staff Ordering Physician: Patrick Polo DO Drill Rig Operator Helper: Sneha Cerda RDCS Attending Provider: Patrick Polo DO Referring Physician: Christ COFFMAN; Exam Type: CA echo doppler color flow Study Info Indications I35.0 - Nonrheumatic aortic (valve) stenosis Complete two-dimensional, color flow and Doppler transthoracic echocardiogram is performed. Summary 1. Complete two-dimensional, color flow and Doppler transthoracic echocardiogram is performed. 2. Left ventricular chamber dimension is normal. 3. Left ventricular systolic function is normal, estimated at 60-65%. 4. There is mild concentric increased left ventricular wall thickness. 5. The left ventricular diastolic function is grade I diastolic dysfunction. 6. E/e' 19 is elevated. 7. Global longitudinal strain is abnormal at -12.5%. 8. Left atrial chamber dimension is severely enlarged. 9. Right atrial chamber dimension is mildly enlarged. 10. There is moderate aortic valve sclerosis. 11. There is mild aortic valve stenosis with a peak velocity of 198 cm/s, mean gradient of 10 mmHg, and aortic valve area of 1.7 cm2. 12. There is mild aortic valve regurgitation. 13. The mitral valve has moderately calcified annulus. 14. There is trace mitral valve regurgitation. 15. There is trace tricuspid valve regurgitation. 16. Mild pulmonary hypertension, estimated pulmonary arterial systolic pressure is 43 mmHg. Left Ventricle E/e' 19 is elevated. Global longitudinal strain is abnormal at -12.5%. Left ventricular chamber dimension is normal. Left ventricular systolic function is normal, estimated at 60-65%. There is mild concentric increased left ventricular wall thickness. The left ventricular diastolic function is grade I diastolic dysfunction. Right Ventricle Right ventricular chamber dimension is normal. Right ventricular systolic function is normal. Left Atria Left atrial chamber dimension is severely enlarged. Right Atria Right atrial chamber dimension is mildly enlarged. Aortic Valve The aortic valve is trileaflet. There is moderate aortic valve sclerosis. There is mild aortic valve stenosis with a peak velocity of 198 cm/s, mean gradient of 10 mmHg, and aortic valve area of 1.7 cm2. There is mild aortic valve regurgitation. Pulmonic Valve There is no pulmonic regurgitation. Mitral Valve The mitral valve has moderately calcified annulus. There is no mitral valve stenosis. There is trace mitral valve regurgitation. Tricuspid Valve There is trace tricuspid valve regurgitation. Mild pulmonary hypertension, estimated pulmonary arterial systolic pressure is 43 mmHg. Pericardium/Pleural There is no pericardial effusion. Inferior Vena Cava Normal inferior vena cava with >50% collapse upon inspiration consistent with normal right atrial pressure, 5 mmHg. Aorta The aortic root size at the sinus of Valsalva is normal. Left Ventricular Outflow Tract Name Value Normal LVOT 2D LVOT Diameter 1.9 cm LVOT Doppler
== END 2022-12-06 07:28 | disposition home or self-care (01) ==
PROVIDERS: PCP Family Medicine; Visit Provider Internal Medicine Cardiovascular Disease
DX: I35.0 Nonrheumatic aortic (valve) stenosis (principal); R93.1 Abnormal findings on diagnostic imaging of heart and coronary circulation; I50.30 Unspecified diastolic (congestive) heart failure; I27.20 Pulmonary hypertension, unspecified; I34.81 Nonrheumatic mitral (valve) annulus calcification; I35.8 Other nonrheumatic aortic valve disorders; I35.1 Nonrheumatic aortic (valve) insufficiency; I34.0 Nonrheumatic mitral (valve) insufficiency; I07.1 Rheumatic tricuspid insufficiency
CPT/HCPCS: 93306

== ENCOUNTER 2023-01-01 14:22 | Outpatient (CLI) | payer MEDICARE, SELFPAY ==
[2023-01-01 18:59] LABS: Basophils Percent Auto 0.2 % (0.2-1.2); Eosinophils Absolute Auto 0.4 K/mm3 (0-0.3); Eosinophils Percent Auto 4.4 % (0-4.4); Hematocrit 34.6 % (37.0-47.0); Hemoglobin 10.6 g/dL (12.0-15.0); Immature Granulocyte Absolute 0.04 K/mm3 (0.00-0.031); Immature Granulocyte Percent A 0.4 % (0-0.5); Lymphocytes Absolute Auto 0.76 K/mm3 (0.9-3.2); Lymphocytes Percent Auto 8.1 % (18.3-44.2); Mean Corpuscular HGB Conc 30.6 g/dl (32-36); Mean Corpuscular Hemoglobin 28.9 pg (26-34); Mean Corpuscular Volume 94.3 fl (80-100); Monocytes Absolute Auto 0.7 K/mm3 (0.1-0.6); Monocytes Percent Auto 7.3 % (2.6-8.5); Neutrophils Absolute Auto 7.4 K/mm3 (1.3-6.7); Neutrophils Percent Auto 79.6 % (45.5-73.1); Platelet Count Result 160 k/mm3 (150-375); Red Blood Count 3.67 M/mm3 (4.2-5.4); Red Cell Distribution Width 14.2 % (11.5-14.5); White Blood Count 9.3 K/mm3 (4.5-10.0)
[2023-01-01 20:01] LABS: Alanine Aminotransferase 21 U/L (6-35); Albumin Level 3.8 g/dL (3.5-5.1); Alkaline Phosphatase 124 U/L (38-126); Anion Gap 6 mmol/L (8-16); Aspartate Amino Transferase 30 U/L (14-36); Bilirubin,Total 0.5 mg/dL (0.2-1.3); Blood Urea Nitrogen 32 mg/dL (7-17); Calcium 8.8 mg/dL (8.4-10.2); Carbon Dioxide 30 mmol/L (22-30); Chloride 102 mmol/L (98-107); Estimated Glomerular Filt Rate 29; Glucose 106 mg/dL (65-110); Potassium 4.2 mmol/L (3.4-5.0); Sodium 138 mmol/L (137-145)
[2023-01-01 20:05] LABS: Iron 55 ug/dL (37-170)
[2023-01-01 20:15] LABS: Percent Iron Saturation 19 % (20-50)
[2023-01-01 21:01] LABS: Folic Acid 7.4 ng/mL (2.76->20)
[2023-01-01 21:13] LABS: Vitamin D 25 Hydroxy 55.2 ng/mL
== END 2023-01-01 14:23 | disposition home or self-care (01) ==
LOC: ANHGOSHLAB 14:26
PROVIDERS: PCP Family Medicine; Visit Provider Family Medicine
DX: D64.9 Anemia, unspecified (principal); E55.9 Vitamin D deficiency, unspecified; I10 Essential (primary) hypertension
CPT/HCPCS: 36415; 80053; 82306; 82607; 82728; 82746; 83540; 83550; 85025

== ENCOUNTER 2023-02-03 19:32 | Inpatient (IN) | payer MEDICARE, SELFPAY ==
--- NOTE | ~2023-02-03 | NM_ITS ---
EXAMINATION: NM antoine stress w perfusion DATE: 02/06/2023 13:31 INDICATION: 2 months of acute worsening of left ventricular right ventricular systolic function TECHNIQUE: Rest images were obtained following intravenous administration of 9.6 mCi Tc99m tetrofosmi n (Myoview). The patient was infused intravenously with Lexiscan (Regadenoson). Then, 30.2 mCi Tc99m tetrofosmin (Myoview) was administered intravenously, and stress images were obtained. Data was recon structed into short axis and horizontal and vertical long axis SPECT images. Gated SPECT images were also obtained. COMPARISON: None. FINDINGS: Large nonreversible perfusion defect involving the inferolateral, mid and basilar anterolat eral and basilar inferolateral segments consistent with infarct. There is a small portion of the basi lar inferolateral segment which is partially reversible consistent with ischemia. Small region of mil d reversible ischemia at the apical septal and apical anterior segments. There is normal left ventri cular chamber size, wall motion and ejection fraction. Left ventricular ejection fraction measures 6 4%. IMPRESSION: 1. Large mild infarct involving a significant portion of the circumflex coronary artery vascular dist ribution or region of partial-thickness reversibility ischemia at the basilar inferolateral segment. 2. Small region of mild reversible ischemia at the apical lateral and apical anterior segments. 2. Left ventricular ejection fraction measuring 64%. Reviewed, dictated and finalized at location A. IMPRESSION: 1. Large mild infarct involving a significant portion of the circumflex coronar y artery vascular distribution or region of partial-thickness reversibility isc hemia at the basilar inferolateral segment. 2. Small region of mild reversible ischemia at the apical lateral and apical an terior segments. 2. Left ventricular ejection fraction measuring 64%.
--- NOTE | ~2023-02-03 | XR_ITS ---
EXAMINATION: XR chest 1V portable DATE: 02/05/2023 20:57 INDICATION: Hypoxia. TECHNIQUE: A single frontal view of the chest was obtained. COMPARISON: Chest single view 02/03/2023, chest CT 02/04/2023 FINDINGS: There is a large hiatal hernia. There are airspace opacities at the lung bases, likely atel ectasis. There are small pleural effusions. There is a diffuse interstitial pattern in the lungs, con sistent with pulmonary edema. No pneumothorax. Cardiomegaly is noted. IMPRESSION: 1. Mild pulmonary edema. 2. Worsened small pleural effusions. 3. Cardiomegaly. 4. Large hiatal hernia. Reviewed, dictated and finalized at location E.
--- NOTE | ~2023-02-03 | CT_ITS ---
Clinical Indication: Shortness of breath CT Scan of the Chest with Contrast: Technique: Contiguous sections were acquired throughout the chest after intravenous administration of 100 cc of Omnipaque 350. Dose reduction technique was used on this scan by utilizing automated expos ure control and iterative reconstruction technique. The dose-length product (DLP) was 952.68 mGy-cm. COMPARISON: 10/27/2021 Findings: There is no evidence of any significant mediastinal, hilar or axillary lymphadenopathy. There is no f illing defect in the pulmonary arterial tree to suggest pulmonary embolus. There is no evidence of ao rtic aneurysm. No pericardial effusion. There is reflux of contrast into the IVC/hepatic veins, which can indicate right heart strain/dysfunction. Small to moderate right pleural effusion present. Small left pleural effusion present. There is minim al bibasilar atelectasis. There is probable minimal septal thickening, suggestive of minimal intersti tial edema. Images through the upper abdomen reveal large hiatal hernia, containing essentially the entire stomac h with probable organoaxial volvulus. Impression: No pulmonary embolus. Small to moderate right pleural effusion and small left pleural effusion. Associated mild interstitia l edema and minimal bibasilar atelectatic change. Large hiatal hernia, as detailed above, stable from prior exam. Reflux of contrast into the IVC/hepatic veins, which can indicate underlying right heart dysfunction. Reviewed, dictated and finalized at [facility]. Impression: No pulmonary embolus. Small to moderate right pleural effusion and small left pleural effusion. Assoc iated mild interstitial edema and minimal bibasilar atelectatic change. Large hiatal hernia, as detailed above, stable from prior exam. Reflux of contrast into the IVC/hepatic veins, which can indicate underlying ri ght heart dysfunction.
--- NOTE | ~2023-02-03 | US_ITS ---
EXAMINATION: US renal BI DATE: 02/08/2023 17:47 INDICATION: Acute on chronic kidney injury TECHNIQUE: Multiple grayscale and Doppler ultrasound images of the kidneys were obtained. COMPARISON: None. FINDINGS: The right kidney measures 12.6 x 4.8 x 5.2 cm. The left kidney measures 11.3 x 5.0 x 6.3 cm . The kidneys demonstrate normal parenchymal echogenicity. There is mild cortical thinning of the kid neys. There is no hydronephrosis. The bladder is normal. IMPRESSION: 1. Mild cortical thinning of the kidneys. Reviewed, dictated and finalized at location F.
--- NOTE | ~2023-02-03 | XR_ITS ---
EXAMINATION: XR chest 1V portable DATE: 02/03/2023 20:21 INDICATION: Shortness of breath TECHNIQUE: frontal view of the chest was obtained. COMPARISON: Chest radiograph dated 11/05/[address] dated 10/27/2021 FINDINGS: Interstitial and airspace opacities throughout both lungs relatively sparing the left upper lung zone . More dense opacities at the bilateral lower lung zones with blunting at costophrenic angles consist ent with small bilateral pleural effusions. No pneumothorax. Cardiomegaly. Gas within the intrathorac ic portion of a large hiatal hernia projecting over the left lower lung zone. IMPRESSION: 1. Opacities in bilateral lungs which could represent pulmonary edema, atelectasis, pneumonia or some combination thereof. 2. Small bilateral pleural effusions. 3. Cardiomegaly. 4. Large hiatal hernia. Reviewed, dictated and finalized at location A. IMPRESSION: 1. Opacities in bilateral lungs which could represent pulmonary edema, atelecta sis, pneumonia or some combination thereof. 2. Small bilateral pleural effusions. 3. Cardiomegaly. 4. Large hiatal hernia.
[2023-02-03 19:29] VITALS: BP 149/70; PULSE 110; RESP 21; O2SAT 98; O2SAT 99
--- NOTE | 2023-02-03 19:47 | ECG_ITS ---
Measurements Intervals [place] Rate: 117 P: MN: 0 QRS: -46 QRSD: 113 T: 97 QT: 316 QTc: 442 Interpretive Statements POSSIBLEATRIAL FLUTTER WITH VARIABLE AV BLOCK WITH RAPID VENTRICULAR RESPONSE BASELINE ARTIFACT LEFT ANTERIOR FASCICULAR BLOCK [QRS AXIS <= -45, QR IN I, RS IN II] ANTEROSEPTAL MYOCARDIAL INFARCTION , OF INDETERMINATE AGE [40+ ms Q WAVE IN V1-V4] ABNORMAL ECG COMPARED TO ECG 10/27/2021 12:22:53 LEFT ANTERIOR FASCICULAR BLOCK NOW PRESENT Electronically Signed On 02-04-2023 16:50:45 CDT by Glenn Evangelista M.D.
[2023-02-03 20:35] LABS: Basophils Percent Auto 0.3 % (0.2-1.2); Eosinophils Absolute Auto 0.2 K/mm3 (0-0.3); Eosinophils Percent Auto 1.3 % (0-4.4); Hemoglobin 9.3 g/dL (12.0-15.0); Immature Granulocyte Absolute 0.07 K/mm3 (0.00-0.031); Immature Granulocyte Percent A 0.6 % (0-0.5); Lymphocytes Absolute Auto 0.57 K/mm3 (0.9-3.2); Mean Corpuscular Hemoglobin 29.4 pg (26-34); Mean Corpuscular Volume 98.1 fl (80-100); Mean Platelet Volume 10.7 fl (7.4-10.4); Monocytes Absolute Auto 0.7 K/mm3 (0.1-0.6); Monocytes Percent Auto 6.2 % (2.6-8.5); Neutrophils Absolute Auto 9.8 K/mm3 (1.3-6.7); Neutrophils Percent Auto 86.6 % (45.5-73.1); Platelet Count Result 154 k/mm3 (150-375); Red Blood Count 3.16 M/mm3 (4.2-5.4); Red Cell Distribution Width 15.4 % (11.5-14.5); White Blood Count 11.3 K/mm3 (4.5-10.0)
[2023-02-03 20:46] LABS: INR 1.3
[2023-02-03 20:50] LABS: Appearance Urine Cloudy (Clear); Bacteria Urine 4+ /hpf; Bilirubin Urine Negative (Negative); Color Urine Dark Yellow (Yellow); Glucose Urine UA Negative (Negative); Ketones Urine Negative (Negative); Leukocyte Esterase Ur 2+ LEU/UL (Negative); Need Manual Microscopic Reviewed; Nitrate Urine Positive (Negative); Protein Urine 2+ mg/dL (Negative); RBC Urine 0-2 /hpf (0-2); Specific Grav Ur 1.022 (1.001-1.035); Squamous Epithelial Cell Urine Many /hpf (Few); WBC Urine 51-100 /hpf
[2023-02-03 20:51] LABS: Add Urine Microscopic? YES
[2023-02-03 20:56] LABS: Alanine Aminotransferase 25 U/L (6-35); Albumin Level 3.7 g/dL (3.5-5.1); Alkaline Phosphatase 116 U/L (38-126); Anion Gap 3 mmol/L (8-16); Aspartate Amino Transferase 28 U/L (14-36); Blood Urea Nitrogen 27 mg/dL (7-17); Calcium 8.4 mg/dL (8.4-10.2); Carbon Dioxide 30 mmol/L (22-30); Chloride 107 mmol/L (98-107); Estimated CRCL calculation 28 ml/min; Estimated Glomerular Filt Rate 33; Glucose 108 mg/dL (65-110); Potassium 4.3 mmol/L (3.4-5.0); Sodium 140 mmol/L (137-145)
[2023-02-03] MEDS: FUROSEMIDE INJ 40 MG/4 ML VIAL IV PUSH (20:57)
[2023-02-03 21:02] VITALS: BP 145/94; PULSE 114; RESP 24; O2SAT 97
[2023-02-03 21:10] VITALS: TEMP 37.1
[2023-02-03 21:10] LABS: NT Pro B Type Natriuretic Pept 9690 pg/mL (19.9-100); Troponin I 0.086 ng/mL (0.000-0.034)
--- NOTE | 2023-02-03 21:46 | ED.SOB ---
HPI - SOB/Dyspnea General Chief Complaint: Shortness of Breath/Dyspnea Stated Complaint: sob Time Seen by Provider: 02/03/23 19:46 History of Present Illness HPI Narrative: Patient brought to the emergency department by EMS after increasing shortness of breath over the past 3 weeks. She has a history of COPD and normally is on 2 L. She also has a history of congestive heart failure. Her primary care doctor took her off the furosemide and spironolactone 3 weeks ago. Exertional dyspnea and lower extremity edema has gradually gotten worse denies chest Related Data Home Medications Medication Instructions Recorded Confirmed acetaminophen 500 mg tablet 500 mg PO Q4H PRN Pain (Scale 03/13/19 01/02/23 (Tylenol Extra Strength) Score 1-3) apixaban 2.5 mg tablet (Eliquis) 2.5 mg PO BID 01/01/23 01/02/23 furosemide 20 mg tablet 20 mg PO DAILY 01/01/23 01/02/23 spironolactone 25 mg tablet 25 mg PO DAILY 01/01/23 01/02/23 Allergies Allergy/AdvReac Type Severity Reaction Status Date / Time Penicillins Allergy Unknown Unknown Verified 01/02/23 13:50 TIDE SOAP Allergy Mild Rash Uncoded 01/02/23 13:50 Review of Systems Review of Systems: Review of systems negative except what is documented in the HPI [facility] Past Medical History Medical History Mcneil palsy Chronic kidney disease, stage 3 Chronic low back pain without sciatica COPD (chronic obstructive pulmonary disease) Diastolic congestive heart failure Ejection fraction 55 to 60% on echo in October 2021 Essential (primary) hypertension Insomnia Moderate mitral valve regurgitation Paroxysmal atrial flutter Pulmonary hypertension Echocardiogram on 10/20/2021 showed moderate pulmonary hypertension with a PASP of 58 mmHg. Shortness of Breath Tobacco abuse Unspecified osteoarthritis, unspecified site Vitamin D deficiency Surgical History Surgical History History of (1976) History of cholecystectomy (10/2014) History of hysterectomy (2003) 2004 History of removal of cyst Axilla, in the . History of right cataract surgery Family History Family History Father Hypertension Mother Hypertension Father Family history of lung cancer Other Diabetes mellitus Family history of allergic disorder Family history of cardiovascular disease Family history of malignant neoplasm Family history of tuberculosis Social History Social History Social History: Surrogate decision maker: Hung Noe, osmani. Code status: Full code. Smoking packs per day: 0.75 Smoking cigarettes per day: 15.0 Years smoked: 50 Smoking pack-years: 37.50 Smoking status: Former smoker (quit last month October 2021) Second hand tobacco smoke exposure: Yes Alcohol intake: current Substance use: never Substance use type: does not use Other substance usage details: a beer every month Lack of Transportation: No Lack of Food: Never True Current Housing: I Have Housing Concerned About Future Housing: No Difficulty Paying Gas/Electric Bills: No Difficulty Paying for Meds: No Currently Unemployed: No Education: High School Diploma/GED Difficulty w/ Childcare or Family Care: No Living arrangements: with family Additional living arrangements comments: The patient lives in her own home. Her son Hung lives with her. Occupation/Education: retired Spiritual care concerns: No Exam Narrative: GENERAL: Well-appearing, well-nourished, and in no acute distress. HEAD: Normocephalic, atraumatic. EYES: PERRLA and EOMI. ENT: Nares clear, no rhinorrhea or epistaxis. Mucous membranes moist. NECK: Supple. CHEST: Clear to auscultation. No respiratory distress. HEART: Tachycardia ABDOMEN: Soft, nontender, nondistended. EXTREMITIES: Normal range of m
[2023-02-03 22:27] VITALS: BP 145/81; PULSE 103; RESP 20; O2SAT 99
[2023-02-03 23:08] VITALS: BP 120/84; PULSE 104; RESP 24; O2SAT 100
[2023-02-03 23:40] LABS: Troponin I 0.121 ng/mL (0.000-0.034)
[2023-02-03] MEDS: cefTRIAXone 2 GM/NS 100 ML 2 GM/100 ML BAG IVPB (23:56)
[2023-02-04] VITALS (19 sets, daily range): BP systolic 102–149; BP diastolic 45–95; PULSE 67–110; RESP 17–24; TEMP 36.1–36.6; O2SAT 96–99; BMI 32.5; BMI 32.6
--- NOTE | 2023-02-04 | ECHO_ITS ---
Patient Info Name: Sarah Beth Stafford Age: 83 years : 1940 Gender: Female Ht: 64 in Wt: 190 lbs BSA: 2.01 m2 HR: 78 bpm BP: 149 / 65 mmHg Heart Rhythm: Atrial Fibrillation Technical Quality: Fair Exam Date: 02/04/2023 3:23 PM Exam Location: [facility] Pulmonary Exam Room: [facility] Patient Status: Inpatient Admit Date: 02/04/2023 Staff Ordering Physician: Augustine Goff MD Supervisor Sample: Teresita Wright RDCS Attending Provider: Mikaela Gibson DO Exam Type: CA echo doppler color flow Study Info Indications - rt hrt failure chf Complete two-dimensional, color flow and Doppler transthoracic echocardiogram is performed. Summary 1. Complete two-dimensional, color flow and Doppler transthoracic echocardiogram is performed. 2. Left ventricular chamber dimension is normal. 3. Left ventricular systolic function is mildly globally reduced, estimated at 45-50%. 4. The left ventricular diastolic function is indeterminate as tissue doppler was not performed.. 5. Atrial fibrillation. 6. Right ventricular chamber dimension is mildly enlarged. 7. Right ventricular systolic function is mildly reduced. 8. Left atrial chamber dimension is severely enlarged. 9. Right atrial chamber dimension is mildly enlarged. 10. There is moderate aortic valve sclerosis. 11. There is mild aortic valve stenosis with a peak velocity of 183 cm/s, mean gradient of 8 mmHg, and aortic valve area of 1.6 cm2. 12. There is mild to moderate aortic valve regurgitation. 13. The mitral valve has mildly calcified annulus. 14. There is moderate to severe mitral valve regurgitation. 15. There is moderate tricuspid valve regurgitation. 16. Moderate pulmonary hypertension, estimated pulmonary arterial systolic pressure is 50 mmHg. 17. There is trace pulmonic regurgitation. Left Ventricle Atrial fibrillation. The left ventricular diastolic function is indeterminate as tissue doppler was not performed.. Left ventricular systolic function is mildly globally reduced, estimated at 45-50%. Left ventricular chamber dimension is normal. Right Ventricle Right ventricular systolic function is mildly reduced. Right ventricular chamber dimension is mildly enlarged. Left Atria Left atrial chamber dimension is severely enlarged. Right Atria Right atrial chamber dimension is mildly enlarged. Aortic Valve The aortic valve is trileaflet. There is moderate aortic valve sclerosis. There is mild aortic valve stenosis with a peak velocity of 183 cm/s, mean gradient of 8 mmHg, and aortic valve area of 1.6 cm2. There is mild to moderate aortic valve regurgitation. Pulmonic Valve There is trace pulmonic regurgitation. Mitral Valve The mitral valve has mildly calcified annulus. There is no mitral valve stenosis. There is moderate to severe mitral valve regurgitation. Tricuspid Valve There is moderate tricuspid valve regurgitation. Moderate pulmonary hypertension, estimated pulmonary arterial systolic pressure is 50 mmHg. Pericardium/Pleural There is no pericardial effusion. Inferior Vena Cava Normal inferior vena cava with >50% collapse upon inspiration consistent with normal right atrial pressure, 5 mmHg. Aorta The aortic root size at the sinus of Valsalva is normal. Left Ventricular Outflow Tract Name Value Normal LVOT 2D LVOT Diameter
--- NOTE | 2023-02-04 00:14 | PC.NURSE ---
Pt to CT at this time.
[2023-02-04] MEDS: AZITHROMYCIN 500 MG/NS 250 ML 500 MG/250 ML BAG 250 MG IVPB (00:41)
[2023-02-04] MEDS: ONDANSETRON INJ 4 MG/2 ML VIAL IV PUSH (01:14)
[2023-02-04] MEDS: METOPROLOL TARTRATE INJ 5 MG/5 ML VIAL IV PUSH (01:14)
--- NOTE | 2023-02-04 02:33 | ADMGEN ---
This patient, Sarah Beth Stafford, was admitted to IMU Room 205-02. Patient/family oriented to hospital policies and general routines including ID bracelet, bed and alarms, visiting hours, pain management, procedures, bathroom and other care routines, personal items, smoking policy, room service/diet, and visiting hours. Information on how to activate the Rapid Response Team has been discussed. Patient/Family are encouraged to report perceived risks to care and to ask questions if they do not understand what they are told or what they should do.
--- NOTE | 2023-02-04 02:36 | PM.IMHP ---
H&P: HPI History of Present Illness Date/Time: 02/04/23 01:30 Chief Complaint: Shortness of breath Narrative: 83-year-old female with past medical history of COPD on chronic home O2, diastolic heart failure and paroxysmal atrial fibrillation who presented to the ER via EMS from home due to shortness of breath. Patient reports that approximately 3 weeks ago her primary care physician stopped her Lasix and spironolactone due to its effect on her kidneys. Within a few days of stopping the diuretics she began having increasing lower extremity swelling. As time progressed she was having increasing shortness of breath. She reports for the last couple weeks she has been having such dyspnea on minimal exertion that she cannot even get into the shower. She has had progressive associated weakness. She has noticed episodic palpitations and feeling as if her heart is pumping really hard when she become short of breath. She denies any chest pain. Her abdomen is noted to be distended but she states that this is not changed from her baseline. Her son who is also did on disability lives with her. Neither 1 of them are able to state and to prepare meals so that they have been eating a lot of TV dinners and processed food. She has not been able to maintain a low-sodium diet. She reports that her primary care physician had told her to limit her fluid intake to 1 L a day but she has not been able to maintain this. She has chronic urinary frequency and has had increased urgency since receiving Lasix in the ER. She denies any dysuria or hematuria. She denies any cough or fever. Review of Systems Review of Systems: 12 systems were reviewed with pertinent positives and negatives per HPI. Except as documented in the HPI, all other systems were reviewed and are negative. [facility] Past Medical History Medical History (Updated 02/04/23 @ 04:52 by Mikaela Gibson DO) Mcneil palsy Chronic hypoxic respiratory failure, on home oxygen therapy Chronic kidney disease, stage 3 Chronic low back pain without sciatica COPD (chronic obstructive pulmonary disease) Diastolic congestive heart failure Ejection fraction 55 to 60% on echo in October 2021. Echocardiogram 2020 demonstrated grade 3 diastolic dysfunction, echocardiogram 202122 grade 1 dysfunction Essential (primary) hypertension History of tobacco abuse Insomnia Moderate mitral valve regurgitation Paroxysmal atrial flutter Pulmonary hypertension Echocardiogram on 10/20/2021 showed moderate pulmonary hypertension with a PASP of 58 mmHg. Unspecified osteoarthritis, unspecified site Vitamin D deficiency Surgical History Surgical History History of (1976) History of cholecystectomy (10/2014) History of hysterectomy (2003) 2004 History of removal of cyst Axilla, in the 1980s. History of right cataract surgery Family History Family History Father Hypertension Mother Hypertension Father Family history of lung cancer Other Diabetes mellitus Family history of allergic disorder Family history of cardiovascular disease Family history of malignant neoplasm Family history of tuberculosis Social History Social History (Updated 02/04/23 @ 04:32 by Mikaela Gibson DO) Social History: Surrogate decision maker: Hung Noe, son. Code status: DNR/DNI (per patient request) Smoking packs per day: 0.75 Smoking cigarettes per day: 15.0 Years smoked: 50 Smoking pack-years: 37.50 Smoking status: Former smoker Tobacco type: cigarettes Second hand tobacco smoke exposure: Yes Smoking end date: 10/19/21 Alcohol intake: never Substance use: never Substance use type: does not use Other substance usage details: a beer every month Lack of Transportation: No Lack of Food: Never True Current Housing: I Have Housing Concerned About Future Housing: N
[2023-02-04 06:18] LABS: Hematocrit 32.5 % (37.0-47.0); Hemoglobin 9.7 g/dL (12.0-15.0); Mean Corpuscular HGB Conc 29.8 g/dl (32-36); Mean Corpuscular Hemoglobin 29.3 pg (26-34); Mean Corpuscular Volume 98.2 fl (80-100); Mean Platelet Volume 10.5 fl (7.4-10.4); Platelet Count Result 167 k/mm3 (150-375); Red Blood Count 3.31 M/mm3 (4.2-5.4); Red Cell Distribution Width 15.5 % (11.5-14.5); White Blood Count 12.1 K/mm3 (4.5-10.0)
[2023-02-04 06:31] LABS: Anion Gap 9 mmol/L (8-16); Blood Urea Nitrogen 27 mg/dL (7-17); Calcium 8.2 mg/dL (8.4-10.2); Carbon Dioxide 26 mmol/L (22-30); Chloride 106 mmol/L (98-107); Estimated CRCL calculation 28 ml/min; Estimated Glomerular Filt Rate 33; Glucose 111 mg/dL (65-110); Magnesium 2.3 mg/dL (1.6-2.3); Potassium 4.6 mmol/L (3.4-5.0); Sodium 141 mmol/L (137-145)
[2023-02-04 06:43] LABS: Troponin I 0.122 ng/mL (0.000-0.034)
[2023-02-04] MEDS: APIXABAN 2.5 MG TABLET PO ×2 (09:12→21:00)
[2023-02-04] MEDS: CYANOCOBALAMIN 1,000 MCG TABLET 1000 MCG BY MOUTH (09:12)
[2023-02-04] MEDS: CHOLECALCIFEROL 1,000 UNITS TABLET 2000 UNITS PO (09:12)
--- NOTE | 2023-02-04 11:08 | PM.IMPN ---
Progress Note: A&P Assessment and Plan (1) Generalized weakness: Code(s): R53.1 - Weakness Status: Acute (2) Elevated troponin: Code(s): R79.89 - Other specified abnormal findings of blood chemistry Status: Acute (3) Paroxysmal atrial fibrillation with RVR: Code(s): I48.0 - Paroxysmal atrial fibrillation Status: Acute (4) Abnormal urinalysis: Code(s): R82.90 - Unspecified abnormal findings in urine Status: Acute (5) Elevated d-dimer: Code(s): R79.89 - Other specified abnormal findings of blood chemistry Status: Acute (6) Hypoxic respiratory failure: Qualifiers: Chronicity: acute on chronic Qualified Code(s): J96.21 - Acute and chronic respiratory failure with hypoxia Code(s): J96.91 - Respiratory failure, unspecified with hypoxia Status: Acute (7) Acute exacerbation of CHF (congestive heart failure): Qualifiers: Heart failure type: unspecified Qualified Code(s): I50.9 - Heart failure, unspecified Code(s): I50.9 - Heart failure, unspecified Status: Acute (8) Pleural effusion: Code(s): J90 - Pleural effusion, not elsewhere classified Status: Acute (9) Pulmonary vascular congestion: Code(s): R09.89 - Other specified symptoms and signs involving the circulatory and respiratory systems Status: Acute (10) Urinary tract infection: Qualifiers: Hematuria presence: without hematuria Urinary tract infection type: acute cystitis Qualified Code(s): N30.00 - Acute cystitis without hematuria Code(s): N39.0 - Urinary tract infection, site not specified Status: Acute (11) Vitamin D deficiency: Code(s): E55.9 - Vitamin D deficiency, unspecified Status: Acute (12) Shortness of Breath: Code(s): R06.02 - Shortness of breath Status: Acute (13) Oxygen dependent: Code(s): Z99.81 - Dependence on supplemental oxygen Status: Acute (14) PAF (paroxysmal atrial fibrillation): Code(s): I48.0 - Paroxysmal atrial fibrillation Status: Acute (15) Aortic stenosis, mild: Code(s): I35.0 - Nonrheumatic aortic (valve) stenosis Status: Acute (16) COPD (chronic obstructive pulmonary disease): Qualifiers: COPD type: unspecified COPD Qualified Code(s): J44.9 - Chronic obstructive pulmonary disease, unspecified Code(s): J44.9 - Chronic obstructive pulmonary disease, unspecified Status: Acute (17) Chronic kidney disease, stage 3: Code(s): N18.30 - Chronic kidney disease, stage 3 unspecified Status: Acute Plan 1. CHF exacerbation Patient has acute on chronic CHF exacerbation resulting in acute on chronic hypoxic respiratory failure.? Heart failure exacerbation is due to combination of recent cessation of diuretic therapy and likely some component of high output failure with AFib RVR.? The patient heart rates have been ranging anywhere between 90-130 in the ER.? Patient has been taking her arm metoprolol succinate as directed.? She has not missed doses.? I have requested the patient receive 1 dose of IV Lopressor.? She has had improvement in her heart rate.? Will continue to monitor strict I&O's and daily weights.? Patient will be continued on Lasix 40 mg IV daily.? Patient has had good urine output following Lasix therapy.? Will check electrolyte panel and magnesium in a.m. labs. f/u echo start lasix [address] metoprolol ER 25 qd f/u bmp/mg daily ct/restart bipap wean off o2, not on at home 2. Elevated troponin Patient has elevated troponin due to demand ischemia with heart failure in AFib.? Troponin is still trending upward.? Will repeat an additional troponin in a.m..? We may need to consider increasing patient's beta-kika dose at home if tachycardia persists after diuresis.? Will continue home Eliquis. f/u repeat trop ct diuresis- do BID (40 iv bid) f/u bmp's start aspirin 3. CKD [place]
[2023-02-04] MEDS: METOPROLOL SUCCINATE EXT REL 25 MG TABCR PO (12:11)
[2023-02-04] MEDS: ASPIRIN 81 MG ENTERIC TABLET PO (12:13)
[2023-02-04] MEDS: FUROSEMIDE INJ 40 MG/4 ML VIAL IV PUSH (12:14)
[2023-02-04 13:03] LABS: Troponin I 0.111 ng/mL (0.000-0.034)
[2023-02-04] MEDS: ACETAMINOPHEN 500 MG TABLET PO ×2 (13:59→21:03)
[2023-02-04 20:47] LABS: Glucose Point of Care 108 mg/dl (65-105)
[2023-02-04] MEDS: DOXAZOSIN MESYLATE 4 MG TABLET 8 MG PO (20:59)
[2023-02-04] MEDS: traZODone HCL 50 MG TABLET PO (21:00)
[2023-02-05] VITALS (18 sets, daily range): BP systolic 100–126; BP diastolic 43–59; PULSE 64–109; RESP 18–22; TEMP 36.4–36.7; O2SAT 93–100
[2023-02-05] MEDS: METOPROLOL SUCCINATE EXT REL 25 MG TABCR PO (08:27)
[2023-02-05] MEDS: CHOLECALCIFEROL 1,000 UNITS TABLET 2000 UNITS PO (08:27)
[2023-02-05] MEDS: APIXABAN 2.5 MG TABLET PO ×2 (08:27→21:52)
[2023-02-05] MEDS: ASPIRIN 81 MG ENTERIC TABLET PO (08:28)
[2023-02-05] MEDS: CYANOCOBALAMIN 1,000 MCG TABLET 1000 MCG BY MOUTH (08:28)
[2023-02-05 10:56] LABS: Anion Gap 1 mmol/L (8-16); Blood Urea Nitrogen 32 mg/dL (7-17); Calcium 7.8 mg/dL (8.4-10.2); Carbon Dioxide 34 mmol/L (22-30); Chloride 104 mmol/L (98-107); Estimated CRCL calculation 25 ml/min; Estimated Glomerular Filt Rate 29; Glucose 114 mg/dL (65-110); Magnesium 2.2 mg/dL (1.6-2.3); Potassium 3.6 mmol/L (3.4-5.0); Sodium 139 mmol/L (137-145)
[2023-02-05] MEDS: ACETAMINOPHEN 500 MG TABLET PO (11:18)
[2023-02-05] MEDS: FLUTICASONE/UMECLIDIN/VILANTER 100-62.5-25 MCG ELLIPTA 1 PUFF INHALATION (13:42)
[2023-02-05] MEDS: IBUPROFEN 600 MG TABLET PO (14:07)
--- NOTE | 2023-02-05 14:55 | PCPTNOTE ---
Patient refused treatment this session due to pain. Patient states her back and hips hurt and she just received pain meds. Patient states she is just getting comfortable and does not want to do therapy this afternoon.
--- NOTE | 2023-02-05 20:27 | PM.IMPN ---
Progress Note: A&P Assessment and Plan (1) Generalized weakness: Code(s): R53.1 - Weakness Status: Acute (2) Elevated troponin: Code(s): R79.89 - Other specified abnormal findings of blood chemistry Status: Acute (3) Paroxysmal atrial fibrillation with RVR: Code(s): I48.0 - Paroxysmal atrial fibrillation Status: Acute (4) Abnormal urinalysis: Code(s): R82.90 - Unspecified abnormal findings in urine Status: Acute (5) Elevated d-dimer: Code(s): R79.89 - Other specified abnormal findings of blood chemistry Status: Acute (6) Hypoxic respiratory failure: Qualifiers: Chronicity: acute on chronic Qualified Code(s): J96.21 - Acute and chronic respiratory failure with hypoxia Code(s): J96.91 - Respiratory failure, unspecified with hypoxia Status: Acute (7) Acute exacerbation of CHF (congestive heart failure): Qualifiers: Heart failure type: unspecified Qualified Code(s): I50.9 - Heart failure, unspecified Code(s): I50.9 - Heart failure, unspecified Status: Acute (8) Pleural effusion: Code(s): J90 - Pleural effusion, not elsewhere classified Status: Acute (9) Pulmonary vascular congestion: Code(s): R09.89 - Other specified symptoms and signs involving the circulatory and respiratory systems Status: Acute (10) Urinary tract infection: Qualifiers: Hematuria presence: without hematuria Urinary tract infection type: acute cystitis Qualified Code(s): N30.00 - Acute cystitis without hematuria Code(s): N39.0 - Urinary tract infection, site not specified Status: Acute (11) Vitamin D deficiency: Code(s): E55.9 - Vitamin D deficiency, unspecified Status: Acute (12) Shortness of Breath: Code(s): R06.02 - Shortness of breath Status: Acute (13) Oxygen dependent: Code(s): Z99.81 - Dependence on supplemental oxygen Status: Acute (14) PAF (paroxysmal atrial fibrillation): Code(s): I48.0 - Paroxysmal atrial fibrillation Status: Acute Plan 1. CHF exacerbation Patient has acute on chronic CHF exacerbation resulting in acute on chronic hypoxic respiratory failure.? Heart failure exacerbation is due to combination of recent cessation of diuretic therapy and likely some component of high output failure with AFib RVR.? The patient heart rates have been ranging anywhere between 90-130 in the ER.? Patient has been taking her arm metoprolol succinate as directed.? She has not missed doses.? I have requested the patient receive 1 dose of IV Lopressor.? She has had improvement in her heart rate.? Will continue to monitor strict I&O's and daily weights.? Patient will be continued on Lasix 40 mg IV daily.? Patient has had good urine output following Lasix therapy.? Will check electrolyte panel and magnesium in a.m. labs. 02/04 start las[address] metoprolol ER 25 qd f/u bmp/mg daily ct/restart bipap wean off o2, not on at home 02/05 echo shows global systolic function and hypokinesis along with biventricular and biatrial dilation. c/f dilated vs ischemic cardiomyopathy. ischemia needs to be ruled out. ordered lexiscan stress test for tomorrow. pt is agreeable to intervention if done. cr increased with bid lasix. changed to qd lasix. however she still has LE edema and may still have pulm edema. c/f cardiorenal syndrome related to CAD should consult cardiology if stress test is abnormal apparently she is on o2 only at night 2. Elevated troponin Patient has elevated troponin due to demand ischemia with heart failure in AFib.? Troponin is still trending upward.? Will repeat an additional troponin in a.m..? We may need to consider increasing patient's beta-kika dose at home if tachycardia persists after diuresis.? Will continue home Eliquis. f/u repeat trop ct diuresis- do BID (40 iv bid) f/u bmp's start aspirin 3. CKD Patient does have chron
--- NOTE | 2023-02-05 20:33 | EST_ITS ---
Patient Info Name: Sarah Beth Stafford Age: 83 years : 1940 Gender: Female Ht: 64 in Wt: 186 lbs BSA: 1.98 m2 HR: 78 bpm BP: 134 / 84 mmHg Heart Rhythm: Sinus Rhythm Exam Date: 02/06/2023 12:31 PM Exam Location: [facility] Stress Patient Status: Inpatient Admit Date: 02/06/2023 Staff Ordering Physician: Augustine Goff MD Attending Provider: Mikaela Gibson DO Exercise Technologist: Cara Bradley CT Exercise Physician: Patrick Polo DO Exam Type: CA stress antoine w [place] Study Info Indications R06.02 - Shortness of breath A regadenoson stress test was performed. Summary 1. 1. Inconclusive lexiscan stress test for ischemic ST changes by ECG criteria due to baseline LBBB. 2. 2. Stable hemodynamics throughout the test. 3. 3. Nuclear scan to follow and will be reported separately. Please correlate with it. 4. 4. Patient informed of the above results. Protocol: Lexiscan Stress ECG Details Stage: REST Duration (min): 1 min : 48 sec HR (bpm): 74 SBP (mmHg): 134 DBP (mmHg): 81 Stage: REST Duration (min): 10 min : 50 sec HR (bpm): 81 SBP (mmHg): 134 DBP (mmHg): 81 Stage: STAGE 1 Duration (min): 1 min : 0 sec HR (bpm): 93 SBP (mmHg): 134 DBP (mmHg): 81 Stage: RECOVERY Duration (min): 1 min : 0 sec HR (bpm): 89 SBP (mmHg): 154 DBP (mmHg): 77 Stage: RECOVERY Duration (min): 2 min : 0 sec HR (bpm): 74 SBP (mmHg): 154 DBP (mmHg): 77 Stage: RECOVERY Duration (min): 3 min : 0 sec HR (bpm): 83 SBP (mmHg): 125 DBP (mmHg): 72 Stage: RECOVERY Duration (min): 3 min : 34 sec HR (bpm): 90 SBP (mmHg): 125 DBP (mmHg): 72 Rest HR: 81 bpm Peak HR: 97 bpm Rest Sys BP: 134 mmHg Peak Sys BP: 154 mmHg Max Pred HR: 139 bpm % Max Pred HR: 70 % Target HR: 118 bpm Max RPP: 14,938 bpm*mmHg Termination Reason: Completed protocol Cardiac Symptoms: Shortness of breath Total Time: 1 min : 0 sec Rest Ty BP: 81 mmHg Peak Ty BP: 77 mmHg Total Dose: 0.4 mg Resting ECG Atrial fibrillation, LBBB. Stress ECG No ST changes. Arrhythmias None. Report Signatures
[2023-02-05] MEDS: LIDOCAINE 5% PATCH 1 PATCH TRANSDERM (21:52)
[2023-02-05] MEDS: DOXAZOSIN MESYLATE 4 MG TABLET 8 MG PO (21:52)
[2023-02-05] MEDS: traZODone HCL 50 MG TABLET PO (21:52)
[2023-02-05] MEDS: CALCIUM GLUC 1,000 MG/NS 50 ML 1,000 MG/50 ML BAG 100 MG IVPB (21:52)
[2023-02-06] VITALS (18 sets, daily range): BP systolic 95–120; BP diastolic 44–54; PULSE 70–95; RESP 18–22; TEMP 36.1–36.6; O2SAT 96–100
[2023-02-06] MEDS: CHOLECALCIFEROL 1,000 UNITS TABLET 2000 UNITS PO (08:54)
[2023-02-06] MEDS: PANTOPRAZOLE 40 MG TABLET PO (08:54)
[2023-02-06] MEDS: ASPIRIN 81 MG ENTERIC TABLET PO (08:55)
[2023-02-06] MEDS: APIXABAN 2.5 MG TABLET PO ×2 (08:55→20:56)
[2023-02-06] MEDS: CYANOCOBALAMIN 1,000 MCG TABLET 1000 MCG BY MOUTH (08:55)
[2023-02-06] MEDS: FLUTICASONE/UMECLIDIN/VILANTER 100-62.5-25 MCG ELLIPTA 1 PUFF INHALATION (09:19)
[2023-02-06] MEDS: AZITHROMYCIN 500 MG/NS 250 ML 500 MG/250 ML BAG 250 MG IVPB (10:30)
[2023-02-06] MEDS: LIDOCAINE 5% PATCH 1 PATCH TRANSDERM (10:38)
--- NOTE | 2023-02-06 11:12 | PCOTNOTE ---
Patient refused to participate in therapy at this time due to stating, she is getting ready to go down for a test and I need to be right here in bed .
--- NOTE | 2023-02-06 11:14 | P.PNIM_ITS ---
Progress Note: A&P Assessment and Plan (1) Generalized weakness: Code(s): R53.1 - Weakness Status: Acute (2) Elevated troponin: Code(s): R79.89 - Other specified abnormal findings of blood chemistry Status: Acute (3) Paroxysmal atrial fibrillation with RVR: Code(s): I48.0 - Paroxysmal atrial fibrillation Status: Acute (4) Abnormal urinalysis: Code(s): R82.90 - Unspecified abnormal findings in urine Status: Acute (5) Elevated d-dimer: Code(s): R79.89 - Other specified abnormal findings of blood chemistry Status: Acute (6) Hypoxic respiratory failure: Qualifiers: Chronicity: acute on chronic Qualified Code(s): J96.21 - Acute and chronic respiratory failure with hypoxia Code(s): J96.91 - Respiratory failure, unspecified with hypoxia Status: Acute (7) Acute exacerbation of CHF (congestive heart failure): Qualifiers: Heart failure type: unspecified Qualified Code(s): I50.9 - Heart failure, unspecified Code(s): I50.9 - Heart failure, unspecified Status: Acute (8) Pleural effusion: Code(s): J90 - Pleural effusion, not elsewhere classified Status: Acute (9) Pulmonary vascular congestion: Code(s): R09.89 - Other specified symptoms and signs involving the circulatory and respiratory systems Status: Acute (10) Urinary tract infection: Qualifiers: Hematuria presence: without hematuria Urinary tract infection type: acute cystitis Qualified Code(s): N30.00 - Acute cystitis without hematuria Code(s): N39.0 - Urinary tract infection, site not specified Status: Acute (11) Vitamin D deficiency: Code(s): E55.9 - Vitamin D deficiency, unspecified Status: Acute (12) Shortness of Breath: Code(s): R06.02 - Shortness of breath Status: Acute (13) Oxygen dependent: Code(s): Z99.81 - Dependence on supplemental oxygen Status: Acute (14) PAF (paroxysmal atrial fibrillation): Code(s): I48.0 - Paroxysmal atrial fibrillation Status: Acute Plan 1. CHF exacerbation Patient has acute on chronic CHF exacerbation resulting in acute on chronic hypoxic respiratory failure.? Heart failure exacerbation is due to combination of recent cessation of diuretic therapy and likely some component of high output failure with AFib RVR.? The patient heart rates have been ranging anywhere between 90-130 in the ER.? Patient has been taking her arm metoprolol succinate as directed.? She has not missed doses.? I have requested the patient receive 1 dose of IV Lopressor.? She has had improvement in her heart rate.? Will continue to monitor strict I&O's and daily weights.? Patient will be continued on Lasix 40 mg IV daily.? Patient has had good urine output following Lasix therapy.? Will check electrolyte panel and magnesium in a.m. labs. 02/04 start lasix [address] metoprolol ER 25 qd f/u bmp/mg daily ct/restart bipap wean off o2, not on at home 02/05 echo shows global systolic function and hypokinesis along with biventricular and biatrial dilation. c/f dilated vs ischemic cardiomyopathy. ischemia needs to be ruled out. ordered lexiscan stress test for tomorrow. pt is agreeable to intervention if done. cr increased with bid lasix. changed to qd lasix. however she still has LE edema and may still have pulm edema. c/f cardiorenal syndrome related to CAD should consult cardiology if stress test is abnormal apparently she is on o2 only at night 2. Elevated troponin Patient has elevated troponin due t
[2023-02-06 11:16] LABS: Anion Gap 5 mmol/L (8-16); Blood Urea Nitrogen 31 mg/dL (7-17); Calcium 8.1 mg/dL (8.4-10.2); Carbon Dioxide 30 mmol/L (22-30); Chloride 105 mmol/L (98-107); Estimated CRCL calculation 25 ml/min; Estimated Glomerular Filt Rate 29; Glucose 90 mg/dL (65-110); Magnesium 2.3 mg/dL (1.6-2.3); Sodium 140 mmol/L (137-145)
--- NOTE | 2023-02-06 14:18 | PC.NURSE ---
[id number] in [place] for Lexiscan - returned to room no c/o pain
[2023-02-06] MEDS: METOPROLOL SUCCINATE EXT REL 25 MG TABCR PO (14:24)
[2023-02-06] MEDS: FUROSEMIDE 40 MG TABLET PO (14:25)
--- NOTE | 2023-02-06 14:50 | PC.NURSE ---
Discharged to [facility] for therapy- family transporting- - d/c via wheelchair to vehicle driven by family
--- NOTE | 2023-02-06 14:55 | PCOTNOTE ---
Patient refused to participate this afternoon. Patient stated she has had a horrible day.
[2023-02-06] MEDS: CALCIUM CARBONATE (TUMS) 500 MG (200 MG ELEMENTAL) PO (20:55)
[2023-02-06] MEDS: traZODone HCL 50 MG TABLET PO (20:56)
[2023-02-06] MEDS: DOXAZOSIN MESYLATE 4 MG TABLET 8 MG PO (20:56)
[2023-02-06] MEDS: IBUPROFEN 600 MG TABLET PO (20:56)
[2023-02-07] VITALS (17 sets, daily range): BP systolic 100–116; BP diastolic 43–64; PULSE 66–98; RESP 20–22; TEMP 36.1–36.4; O2SAT 92–100
[2023-02-07] MEDS: FLUTICASONE/UMECLIDIN/VILANTER 100-62.5-25 MCG ELLIPTA 1 PUFF INHALATION (09:03)
[2023-02-07] MEDS: LIDOCAINE 5% PATCH 1 PATCH TRANSDERM (09:36)
[2023-02-07] MEDS: CYANOCOBALAMIN 1,000 MCG TABLET 1000 MCG BY MOUTH (09:37)
[2023-02-07] MEDS: METOPROLOL SUCCINATE EXT REL 25 MG TABCR PO (09:37)
[2023-02-07] MEDS: APIXABAN 2.5 MG TABLET PO ×2 (09:37→20:37)
[2023-02-07] MEDS: CHOLECALCIFEROL 1,000 UNITS TABLET 2000 UNITS PO (09:37)
[2023-02-07] MEDS: FUROSEMIDE 40 MG TABLET PO (09:37)
[2023-02-07] MEDS: CEFDINIR 300 MG CAPSULE PO (09:37)
[2023-02-07] MEDS: AZITHROMYCIN 250 MG TABLET 500 MG PO (09:37)
[2023-02-07] MEDS: ASPIRIN 81 MG ENTERIC TABLET PO (09:38)
[2023-02-07] MEDS: PANTOPRAZOLE 40 MG TABLET PO (09:38)
--- NOTE | 2023-02-07 11:05 | P.CDI_ITS ---
acute on chronic systolic CDI Query Clarification Request Documented history of CHF. CHF noted in the assessment and plan. Elevated BNP on 02/03/23 lab work. Pulmonary edema noted on the 02/05/23 chest xray. Patient receiving Lasix. Lasix listed as a home medication. Please specify type and acuity of heart failure if known. * Acute * Chronic * Acute on Chronic * Unknown * Systolic * Diastolic * Combined Systolic and Diastolic * Unknown
--- NOTE | 2023-02-07 11:14 | PM.IMPN ---
Progress Note: A&P Assessment and Plan (1) Generalized weakness: Code(s): R53.1 - Weakness Status: Acute (2) Elevated troponin: Code(s): R79.89 - Other specified abnormal findings of blood chemistry Status: Acute (3) Paroxysmal atrial fibrillation with RVR: Code(s): I48.0 - Paroxysmal atrial fibrillation Status: Acute (4) Abnormal urinalysis: Code(s): R82.90 - Unspecified abnormal findings in urine Status: Acute (5) Elevated d-dimer: Code(s): R79.89 - Other specified abnormal findings of blood chemistry Status: Acute (6) Hypoxic respiratory failure: Qualifiers: Chronicity: acute on chronic Qualified Code(s): J96.21 - Acute and chronic respiratory failure with hypoxia Code(s): J96.91 - Respiratory failure, unspecified with hypoxia Status: Acute (7) Acute exacerbation of CHF (congestive heart failure): Qualifiers: Heart failure type: unspecified Qualified Code(s): I50.9 - Heart failure, unspecified Code(s): I50.9 - Heart failure, unspecified Status: Acute (8) Pleural effusion: Code(s): J90 - Pleural effusion, not elsewhere classified Status: Acute (9) Pulmonary vascular congestion: Code(s): R09.89 - Other specified symptoms and signs involving the circulatory and respiratory systems Status: Acute (10) Urinary tract infection: Qualifiers: Hematuria presence: without hematuria Urinary tract infection type: acute cystitis Qualified Code(s): N30.00 - Acute cystitis without hematuria Code(s): N39.0 - Urinary tract infection, site not specified Status: Acute (11) Vitamin D deficiency: Code(s): E55.9 - Vitamin D deficiency, unspecified Status: Acute (12) Shortness of Breath: Code(s): R06.02 - Shortness of breath Status: Acute (13) Oxygen dependent: Code(s): Z99.81 - Dependence on supplemental oxygen Status: Acute (14) PAF (paroxysmal atrial fibrillation): Code(s): I48.0 - Paroxysmal atrial fibrillation Status: Acute Plan 1. CHF exacerbation Patient has acute on chronic CHF exacerbation resulting in acute on chronic hypoxic respiratory failure.? Heart failure exacerbation is due to combination of recent cessation of diuretic therapy and likely some component of high output failure with AFib RVR.? 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 Elevated troponin + stress test - cardiology notified 3. CKD monitor 4. Abnormal UA abx 5. Elevated d-dimer Patient did have an elevated D-dimer but was normal for age adjustment.? Patient is on chronic anticoagulation.? CT of the chest performed in the ER was negative for pulmonary embolism.? Will need to monitor patient's renal function closely given recent IV contrast administration. Unclear cause. No need to intervene 02/05 no PE 6. Possible Pneumonia abx 7. Generalized weakness f/u PT/OT 8. Chronic COPD Patient does have chronic COPD but has no evidence of COPD exacerbation.? Will continue home inhalers. on trelegy, home bipap, not on home o2 per pt 02/05 on o2 only at night. likely tolerates a lower o2 setting due to hx of copd 9. Back pain ibuprofen 400 mg bid prn lidocaine patch Patient has been admitted as observation status. She likely needs to be inpatient for acute chf exacerbation Subjective Date/time seen: 02/07/23 11:14 Interval history: sob with activity Exam Narrative: Gen: elderly female, slumped in chair, falling asleep in chair HEENT: unremarkable Neck: supple, no jvd, CV: irregular rhythm, nl rate, no murmur Lungs: Decreased bs bl at the bases Abd: + bs, abd distended, no ttp Ext: improved bl LE edema Const: Other: Chronically ill-appearing, sitting on the bedside commode HENMT: Other: Tacky mucous membranes, edentulous in upper and lower jaw, head is no
[2023-02-07 12:06] LABS: Anion Gap 6 mmol/L (8-16); Blood Urea Nitrogen 34 mg/dL (7-17); Calcium 7.9 mg/dL (8.4-10.2); Carbon Dioxide 30 mmol/L (22-30); Chloride 103 mmol/L (98-107); Estimated CRCL calculation 22 ml/min; Estimated Glomerular Filt Rate 24; Glucose 93 mg/dL (65-110); Potassium 3.9 mmol/L (3.4-5.0); Sodium 139 mmol/L (137-145)
--- NOTE | 2023-02-07 12:49 | PM.CNCAR ---
Assessment and Plan Assessment and plan (1) Acute exacerbation of CHF (congestive heart failure): Qualifiers: Heart failure type: unspecified Qualified Code(s): I50.9 - Heart failure, unspecified Code(s): I50.9 - Heart failure, unspecified Status: Acute Assessment and Plan: Now she appears euvolemic. Due to stopping both diuretics. Primarily due to acute on chronic diastolic heart failure with mild contribution from systolic dysfunction. 02/04/23 Echo: EF 45-50%, mild RVE/hypokinesis, severe LAE, mild JAVIER, mild (ЕЛЕНА 1.6 cm2), mild-mod AI, mod-severe MR, mod TR, RVSP 50 mmHg, trace PI. On Lasix 40 mg PO daily. Decrease Lasix 20 mg daily as her renal function is worsening on it now with Cr 2.0/Cr Cl 22. Monitor renal function. (2) Paroxysmal atrial fibrillation with RVR: Code(s): I48.0 - Paroxysmal atrial fibrillation Status: Acute Assessment and Plan: Rate controlled with Metoprolol. On Eliquis. (3) Elevated troponin: Code(s): R79.89 - Other specified abnormal findings of blood chemistry Status: Acute Assessment and Plan: Troponin is slightly elevated and peaked at 0.122. 02/06/23 Lexiscan myoview: Mildly abnormal with partial thickness ischemia of basilar inferolateral wall and of apical lat and apical anterior segments. Her symptoms do not suggest ACS. No need for LHC. (4) Essential (primary) hypertension: Code(s): I10 - Essential (primary) hypertension Status: Acute Assessment and Plan: Stable. History of Present Illness History of Present Illness Consult date/time: 02/07/23 12:49 Reason For Visit: CHF Exacerbation Narrative: 83 yr old woman who is my regular cardiology patient presents to ER with sob. She has a history onset atrial fibrillation in October 2021, hypertension, diastolic dysfunction. States she stopped taking her diuretics including Spironolactone and Lasix about 3 weeks ago when she was told she had impaired kidney function. In last couple of weeks she had progressive sob. She has been diuresed the last 3 days and no longer sob at rest. She feels OK and drinks about a gallon of ice tea a day.? She is limited at walking in her house from room to room due to chronic back pain first then possibly due to MARCELINO. She has severe knee pains. She quit smoking in September 2021. Cardiovascular Procedures Echo/MUGA:: 12/06/22 Echo: EF 60-65%, mild LVH, grade I diastolic dysfunction (E/e' 15), severe LAE, mild JAVIER, mild (ЕЛЕНА 1.7 cm2), mild AI, mod MAC, trace MR/TR, RVSP 43 mmHg. 10/20/21 Echo: EF 55-60%, diastolic dysfunction (E/e' 24), severe LAE, mod JAVIER, mild (ЕЛЕНА 1.8 cm2), mild-mod AI, mod MR, mile TR, RVSP 58 mmHg. 01/11/21 Echo: EF 55-60%, grade III diastolic dysfunction (E/e' 18), severe LAE, mild JAVIER, mild (ЕЛЕНА 1.6 cm2), mild AI, mild-mod MR/TR, RVSP 44 mmHg. Echo (EF 65%, mild LVH, grade II diastolic dysfunction (E/E' 27), mild LAE, mild-mod MR, mild AI/TR, RVSP 45 mmHg.) - 06/02/2018 Echo (EF 60-65%, grade II diastolic dysfunction (E/E' 28), mod LVH, mild LAE, mild MR, mild , tr-mild AI, trace TR, RVSP 43 mmHg.) - 05/24/2017 Echo (EF 60-65%, mild LVH, diastolic dysfunction, mild LAE, mild MVP, mod-severe MR, mild AI/TR/PI, RVSP 50-55 mmHg, small pericardial effusion.) - 05/31/2016 Electrophysiology:: 10/20/21 EKG: Atrial fibrillation at 65 bpm, RAD, anteroseptal infarct, age indeterminate. EKG (Sinus rhythm, LVH.) - 11/16/2014 Review of Systems Review of Systems: All systems reviewed & are unremarkable except as noted in HPI and below Constitutional: Constitutional: Reports as per HPI, Denies chills and Denies fever(s) Cardiovascular: Cardiovascular: Reports as per HPI, Denies chest pain, Denies irregular heart rhythm, Reports leg edema and Denies lightheadedness Respiratory: Respiratory: Reports as per HPI and Reports dyspnea Gastrointestinal: Gastrointestinal: Reports as per HPI and Denies abdominal pain Genitourinary: Genitourinar
--- NOTE | 2023-02-07 17:11 | PC.NURSE ---
3 episodes of HR decreasing to high 30's. Pt asymptomatic, resting with eyes closed. BP 116/43. Dr. Polo made aware. Metoprolol XR stopped.
[2023-02-07] MEDS: CALCIUM CARBONATE (TUMS) 500 MG (200 MG ELEMENTAL) PO (20:36)
[2023-02-07] MEDS: traZODone HCL 50 MG TABLET PO (20:37)
[2023-02-07] MEDS: IBUPROFEN 600 MG TABLET PO (20:37)
[2023-02-07] MEDS: DOXAZOSIN MESYLATE 4 MG TABLET 8 MG PO (20:37)
[2023-02-08] VITALS (21 sets, daily range): BP systolic 93–118; BP diastolic 41–65; PULSE 64–93; RESP 18–24; TEMP 35.8–36.4; O2SAT 93–100
[2023-02-08 04:53] LABS: Basophils Percent Auto 0.4 % (0.2-1.2); Eosinophils Absolute Auto 0.2 K/mm3 (0-0.3); Eosinophils Percent Auto 3.5 % (0-4.4); Hematocrit 27.7 % (37.0-47.0); Hemoglobin 8.1 g/dL (12.0-15.0); Immature Granulocyte Absolute 0.04 K/mm3 (0.00-0.031); Immature Granulocyte Percent A 0.6 % (0-0.5); Lymphocytes Absolute Auto 0.81 K/mm3 (0.9-3.2); Lymphocytes Percent Auto 11.9 % (18.3-44.2); Mean Corpuscular HGB Conc 29.2 g/dl (32-36); Mean Corpuscular Hemoglobin 29.6 pg (26-34); Mean Corpuscular Volume 101.1 fl (80-100); Mean Platelet Volume 10.3 fl (7.4-10.4); Monocytes Absolute Auto 0.6 K/mm3 (0.1-0.6); Monocytes Percent Auto 8.7 % (2.6-8.5); Neutrophils Absolute Auto 5.1 K/mm3 (1.3-6.7); Neutrophils Percent Auto 74.9 % (45.5-73.1); Platelet Count Result 124 k/mm3 (150-375); Red Blood Count 2.74 M/mm3 (4.2-5.4); Red Cell Distribution Width 15.7 % (11.5-14.5); White Blood Count 6.8 K/mm3 (4.5-10.0)
[2023-02-08 05:07] LABS: Anion Gap 6 mmol/L (8-16); Blood Urea Nitrogen 40 mg/dL (7-17); Calcium 7.9 mg/dL (8.4-10.2); Carbon Dioxide 31 mmol/L (22-30); Chloride 104 mmol/L (98-107); Estimated CRCL calculation 21 ml/min; Estimated Glomerular Filt Rate 23; Glucose 107 mg/dL (65-110); Sodium 141 mmol/L (137-145)
[2023-02-08 05:13] LABS: NT Pro B Type Natriuretic Pept 4160 pg/mL (19.9-100)
[2023-02-08 05:20] LABS: Anisocytosis 1+ (NORMAL); Hypochromasia 1+ (NORMAL); Platelet Estimate Adequate (Adequate); Schistocytes None Seen (NORMAL)
--- NOTE | 2023-02-08 07:48 | PM.PNCARD ---
Progress Note: A&P Assessment and Plan (1) Acute exacerbation of CHF (congestive heart failure): Qualifiers: Heart failure type: unspecified Qualified Code(s): I50.9 - Heart failure, unspecified Code(s): I50.9 - Heart failure, unspecified Status: Acute Assessment and Plan: Now she appears euvolemic. Due to stopping both diuretics. Primarily due to acute on chronic diastolic heart failure with mild contribution from systolic dysfunction. 02/04/23 Echo: EF 45-50%, mild RVE/hypokinesis, severe LAE, mild JAVIER, mild (ЕЛЕНА 1.6 cm2), mild-mod AI, mod-severe MR, mod TR, RVSP 50 mmHg, trace PI. On Lasix 40 mg PO daily. She has pulmonary crackles so decrease Lasix 20 mg daily as her renal function is worsening on it now with Cr 2.1/Cr Cl 21 from baseline 1.5. Monitor renal function. (2) Paroxysmal atrial fibrillation with RVR: Code(s): I48.0 - Paroxysmal atrial fibrillation Status: Acute Assessment and Plan: Rate controlled and was on Metoprolol. On Eliquis. Her HR was slow to 30's bpm on 02/07/23, and Metoprolol discontinued. HR improved. Monitor HR. (3) Elevated troponin: Code(s): R79.89 - Other specified abnormal findings of blood chemistry Status: Acute Assessment and Plan: Troponin is slightly elevated and peaked at 0.122. 02/06/23 Lexiscan myoview: Mildly abnormal with partial thickness ischemia of basilar inferolateral wall and of apical lat and apical anterior segments. Her symptoms do not suggest ACS. No need for LHC especially in light of worsening acute on CKD, and worsening anemia. (4) Essential (primary) hypertension: Code(s): I10 - Essential (primary) hypertension Status: Acute Assessment and Plan: Stable. (5) Renal failure (ARF), acute on chronic: Code(s): N17.9 - Acute kidney failure, unspecified; N18.9 - Chronic kidney disease, unspecified Status: Acute Assessment and Plan: Consider nephrology consult. (6) Anemia: Code(s): D64.9 - Anemia, unspecified Status: Acute Assessment and Plan: Probably worsening with ARF. Subjective Date/time seen: 10/20/23 07:48 Interval history: Denies chest pain or sob. Exam Const: General: cooperative, healthy appearing and comfortable Orientation/consciousness: oriented to person, oriented to place and oriented to time Resp: Auscultation: crackles, no rales, no rhonchi and no wheezes Cardio: Rate: regular rate Rhythm: abnormal rhythm Heart sounds: Murmur heart sound present (II/ systolic murmur) Peripheral pulses: dorsalis pedis present Neuro: General: oriented to person, oriented to place and oriented to time Extrem: Right lower extremity: no edema Left lower extremity: no edema Objective Data Vital Signs Vital Signs: Vital Signs - 24 hr 02/07/23 08:00 02/07/23 09:37 02/07/23 10:16 Temperature 97 F L Pulse Rate 70 73 Respiratory Rate 22 H Blood Pressure 109/48 L Pulse Oximetry 98 92 Oxygen Delivery Room Air Oxygen Flow Rate 02/07/23 08:00 02/07/23 10:00 02/07/23 08:00 Temperature Pulse Rate 82 73 Respiratory Rate Blood Pressure Pulse Oximetry 100 Oxygen Delivery Nasal Cannula Oxygen Flow Rate 2 02/07/23 12:00 02/07/23 12:00 02/07/23 14:00 Temperature 97 F L Pulse Rate 69 74 66 Respiratory Rate 20 Blood Pressure 103/51 L Pulse Oximetry 99 Oxygen Delivery Oxygen Flow Rate 02/07/23 16:00 02/07/23 12:00 02/07/23 16:00 Temperature 97.5 F L Pulse Rate 98 73 Respiratory Rate 22 H Blood Pressure 116/43 L Pulse Oximetry 95 95 Oxygen Delivery Nasal Cannula Oxygen Flow Rate 2 02/07/23 18:00 02/07/23 16:00 02/07/23 20:00 Temperature 97.2 F L Pulse Rate 74 78 Respiratory Rate 22 H Blood Pressure 114/52 L Pulse Oximetry 94 98 Oxygen Delivery Room Air Oxygen Flow Rate 02/07/23 20:00 02/07/23 20:00 02/07/23 20:00 Temperature Puls
[2023-02-08] MEDS: FLUTICASONE/UMECLIDIN/VILANTER 100-62.5-25 MCG ELLIPTA 1 PUFF INHALATION (08:08)
[2023-02-08] MEDS: CHOLECALCIFEROL 1,000 UNITS TABLET 2000 UNITS PO (09:33)
[2023-02-08] MEDS: LIDOCAINE 5% PATCH 1 PATCH TRANSDERM (09:33)
[2023-02-08] MEDS: PANTOPRAZOLE 40 MG TABLET PO (09:33)
[2023-02-08] MEDS: CEFDINIR 300 MG CAPSULE PO (09:34)
[2023-02-08] MEDS: AZITHROMYCIN 250 MG TABLET 500 MG PO (09:34)
[2023-02-08] MEDS: CYANOCOBALAMIN 1,000 MCG TABLET 1000 MCG BY MOUTH (09:34)
[2023-02-08] MEDS: APIXABAN 2.5 MG TABLET PO ×2 (09:34→21:27)
[2023-02-08] MEDS: ASPIRIN 81 MG ENTERIC TABLET PO (09:34)
--- NOTE | 2023-02-08 12:05 | PM.IMPN ---
Progress Note: A&P Assessment and Plan (1) Generalized weakness: Code(s): R53.1 - Weakness Status: Acute (2) Elevated troponin: Code(s): R79.89 - Other specified abnormal findings of blood chemistry Status: Acute (3) Paroxysmal atrial fibrillation with RVR: Code(s): I48.0 - Paroxysmal atrial fibrillation Status: Acute (4) Abnormal urinalysis: Code(s): R82.90 - Unspecified abnormal findings in urine Status: Acute (5) Elevated d-dimer: Code(s): R79.89 - Other specified abnormal findings of blood chemistry Status: Acute (6) Hypoxic respiratory failure: Qualifiers: Chronicity: acute on chronic Qualified Code(s): J96.21 - Acute and chronic respiratory failure with hypoxia Code(s): J96.91 - Respiratory failure, unspecified with hypoxia Status: Acute (7) Acute exacerbation of CHF (congestive heart failure): Qualifiers: Heart failure type: unspecified Qualified Code(s): I50.9 - Heart failure, unspecified Code(s): I50.9 - Heart failure, unspecified Status: Acute (8) Pleural effusion: Code(s): J90 - Pleural effusion, not elsewhere classified Status: Acute (9) Pulmonary vascular congestion: Code(s): R09.89 - Other specified symptoms and signs involving the circulatory and respiratory systems Status: Acute (10) Urinary tract infection: Qualifiers: Hematuria presence: without hematuria Urinary tract infection type: acute cystitis Qualified Code(s): N30.00 - Acute cystitis without hematuria Code(s): N39.0 - Urinary tract infection, site not specified Status: Acute (11) Vitamin D deficiency: Code(s): E55.9 - Vitamin D deficiency, unspecified Status: Acute (12) Shortness of Breath: Code(s): R06.02 - Shortness of breath Status: Acute (13) Oxygen dependent: Code(s): Z99.81 - Dependence on supplemental oxygen Status: Acute (14) PAF (paroxysmal atrial fibrillation): Code(s): I48.0 - Paroxysmal atrial fibrillation Status: Acute Plan 1. CHF exacerbation Patient has acute on chronic CHF exacerbation resulting in acute on chronic hypoxic respiratory failure.? Heart failure exacerbation is due to combination of recent cessation of diuretic therapy and likely some component of high output failure with AFib RVR.? stress test noted - consult placed to her chick grader continue cardiac regimen 2. Elevated troponin + stress test - cardiology notified 3. CKD monitor 4. Abnormal UA abx 5. Elevated d-dimer Patient did have an elevated D-dimer but was normal for age adjustment.? Patient is on chronic anticoagulation.? CT of the chest performed in the ER was negative for pulmonary embolism.? Will need to monitor patient's renal function closely given recent IV contrast administration. Unclear cause. No need to intervene 02/05 no PE 6. Possible Pneumonia abx 7. Generalized weakness f/u PT/OT 8. Chronic COPD Patient does have chronic COPD but has no evidence of COPD exacerbation.? Will continue home inhalers. on trelegy, home bipap, not on home o2 per pt 02/05 on o2 only at night. likely tolerates a lower o2 setting due to hx of copd 9. Back pain ibuprofen 400 mg bid prn lidocaine patch 10. yanira on ckd renal consult - 2/2 diuresis which is needed to treat CHF Subjective Date/time seen: 02/08/23 12:05 Interval history: No new complaints Exam Narrative: Gen: elderly female, slumped in chair, falling asleep in chair HEENT: unremarkable Neck: supple, no jvd, CV: irregular rhythm, nl rate, no murmur Lungs: Decreased bs bl at the bases Abd: + bs, abd distended, no ttp Ext: improved bl LE edema Const: Other: Chronically ill-appearing, sitting on the bedside commode HENMT: Other: Tacky mucous membranes, edentulous in upper and lower jaw, head is normocephalic atraumatic Eyes:
[2023-02-08] MEDS: FUROSEMIDE 20 MG TABLET PO (12:20)
--- NOTE | 2023-02-08 13:03 | PM.CNNEP ---
Assessment and Plan Assessment and plan (1) JERRY (acute kidney injury): Code(s): N17.9 - Acute kidney failure, unspecified Status: Resolved Assessment and Plan: presumably due to decompensated heart failure and need for diuresis/IV diuretics worsening creatinine noted since admission check urine studies, CPK, and renal ultrasound noted decreased in diuretic dose today this maybe a situation where we have to accept a higher creatinine to achieve euvolemia... follow trend of repeat labs and UOP (2) Chronic kidney disease, stage 3: Code(s): N18.30 - Chronic kidney disease, stage 3 unspecified Status: Chronic Assessment and Plan: baseline creatinine runs ~ 1.0 - 1.5mg/dl this causes her to fluctuate between CKD stager 3A and stage 3B presumably due to hypertension, heart failure, pulmonary HTN, and age-related changes (3) Acute exacerbation of CHF (congestive heart failure): Qualifiers: Heart failure type: unspecified Qualified Code(s): I50.9 - Heart failure, unspecified Code(s): I50.9 - Heart failure, unspecified Status: Acute Assessment and Plan: Cardiology following IV diuresis on admission oral diuretics stopped about a month ago due to fluctuating renal function (4) Hypertension: Code(s): I10 - Essential (primary) hypertension Status: Chronic Assessment and Plan: reasonable control perhaps an element of over-control back on BP medications follow trend of hemodynamics (5) Anemia: Code(s): D64.9 - Anemia, unspecified Status: Acute Assessment and Plan: low H/H noted partly related to JERRY and CKD check iron studies follow trend of H/H (6) Generalized weakness: Code(s): R53.1 - Weakness Status: Acute Assessment and Plan: likely secondary to all of the above PT/OT as tolerated I will continue follow the patient with you while she remains hospitalized and make further recommendations as deemed necessary. Thank you for allowing me to participate in the care of this patient. History of Present Illness Reason for Consult Consult date: 02/08/23 Reason for consult: acute renal failure (on chronic kidney disease) Chief Complaint Chief complaint: CHF Exacerbation History of Present Illness Narrative: The patient is an 83-year-old female with a past medical history as outlined below who presented to [facility] Emergency room via EMS from home due to shortness of breath The patient states that about a month ago her diuretic therapy which included Lasix and spironolactone was discontinued due to the concerns of over diuresis and worsening renal dysfunction. She reports within a few days of stopping the diuretics, she noticed increasing lower extremity edema but her respiratory status was relatively stable. As time progressed, she noticed slow but increasing shortness of breath until eventually in the last week or so, she has been short of breath with any type of exertional activity and cannot do any of her normal activities of daily living. Associated with the shortness of breath and increasing lower extremity edema has been generalized weakness and abdominal distension although she has some of this even at baseline. Further complicating matters is that she has not been compliant with a heart healthy/low-salt diet or fluid restriction. Due to these constellation of symptoms as mentioned, she presented to the emergency room for further assessment Workup in evaluation emergency room demonstrated the patient to be hemodynamically stable but in mild to moderate distress secondary to her shortness of breath. Routine blood test demonstrated labs consistent with her known history of renal insufficiency although her creatinine was mildly higher than at baseline. Her chest x-ray in conjunction with her physical exam showed evidence of a CHF exacerbation which lik
[2023-02-08 19:08] LABS: Creatinine Urine 61.2 mg/dL; Total Protein Urine Random 11 mg/dL; Ur Ttl Prot Creatinine Ratio 0.18 mg/mg (0-0.20); Urea Random Urine 587 MG/DL
[2023-02-08 19:34] LABS: Sodium Urine Random 88 meq/L
[2023-02-08 20:38] LABS: Eosinophil Urine None Seen % (None Seen); Urine Eos QC 2nd Tech Confirmed
[2023-02-08] MEDS: CALCIUM CARBONATE (TUMS) 500 MG (200 MG ELEMENTAL) PO (21:26)
[2023-02-08] MEDS: IBUPROFEN 600 MG TABLET PO (21:26)
[2023-02-08] MEDS: traZODone HCL 50 MG TABLET PO (21:27)
[2023-02-08] MEDS: DOXAZOSIN MESYLATE 4 MG TABLET PO (21:28)
[2023-02-09] VITALS (13 sets, daily range): BP systolic 101–127; BP diastolic 42–47; PULSE 64–112; RESP 18–28; TEMP 36.4–36.6; O2SAT 86–100
[2023-02-09 05:06] LABS: Basophils Percent Auto 0.3 % (0.2-1.2); Eosinophils Absolute Auto 0.2 K/mm3 (0-0.3); Eosinophils Percent Auto 3.2 % (0-4.4); Immature Granulocyte Absolute 0.02 K/mm3 (0.00-0.031); Immature Granulocyte Percent A 0.3 % (0-0.5); Immature Platelet Fraction Pct 5.3 % (0.9-11.2); Lymphocytes Absolute Auto 0.87 K/mm3 (0.9-3.2); Lymphocytes Percent Auto 13.7 % (18.3-44.2); Mean Corpuscular HGB Conc 29.6 g/dl (32-36); Mean Corpuscular Hemoglobin 29.2 pg (26-34); Mean Corpuscular Volume 98.5 fl (80-100); Mean Platelet Volume 10.8 fl (7.4-10.4); Monocytes Absolute Auto 0.6 K/mm3 (0.1-0.6); Neutrophils Absolute Auto 4.7 K/mm3 (1.3-6.7); Neutrophils Percent Auto 73.5 % (45.5-73.1); Platelet Count Result 115 k/mm3 (150-375); Red Blood Count 2.74 M/mm3 (4.2-5.4); Red Cell Distribution Width 15.9 % (11.5-14.5); White Blood Count 6.3 K/mm3 (4.5-10.0)
[2023-02-09 05:13] LABS: Alanine Aminotransferase 19 U/L (6-35); Albumin Level 3.2 g/dL (3.5-5.1); Alkaline Phosphatase 84 U/L (38-126); Anion Gap 2 mmol/L (8-16); Aspartate Amino Transferase 24 U/L (14-36); Bilirubin,Total 0.5 mg/dL (0.2-1.3); Blood Urea Nitrogen 39 mg/dL (7-17); Calcium 8.1 mg/dL (8.4-10.2); Carbon Dioxide 33 mmol/L (22-30); Chloride 103 mmol/L (98-107); Creatine Kinase 53 U/L (30-135); Estimated CRCL calculation 24 ml/min; Estimated Glomerular Filt Rate 27; Glucose 83 mg/dL (65-110); Potassium 3.7 mmol/L (3.4-5.0); Sodium 138 mmol/L (137-145)
[2023-02-09] MEDS: FLUTICASONE/UMECLIDIN/VILANTER 100-62.5-25 MCG ELLIPTA 1 PUFF INHALATION (07:49)
--- NOTE | 2023-02-09 07:59 | PM.PNCARD ---
Progress Note: A&P Assessment and Plan (1) Acute exacerbation of CHF (congestive heart failure): Qualifiers: Heart failure type: unspecified Qualified Code(s): I50.9 - Heart failure, unspecified Code(s): I50.9 - Heart failure, unspecified Status: Acute Assessment and Plan: Now she appears euvolemic. Due to stopping both diuretics. Primarily due to acute on chronic diastolic heart failure with mild contribution from systolic dysfunction. 02/04/23 Echo: EF 45-50%, mild RVE/hypokinesis, severe LAE, mild JAVIER, mild (ЕЛЕНА 1.6 cm2), mild-mod AI, mod-severe MR, mod TR, RVSP 50 mmHg, trace PI. On Lasix 20 mg PO daily. She has pulmonary crackles so on low dose Lasix as her renal function was worsening. Monitor renal function. (2) Paroxysmal atrial fibrillation with RVR: Code(s): I48.0 - Paroxysmal atrial fibrillation Status: Acute Assessment and Plan: Rate controlled and was on Metoprolol. On Eliquis. Her HR was slow to 30's bpm on 02/07/23, and Metoprolol discontinued. HR improved. Monitor HR. (3) Elevated troponin: Code(s): R79.89 - Other specified abnormal findings of blood chemistry Status: Acute Assessment and Plan: Troponin is slightly elevated and peaked at 0.122. 02/06/23 Lexiscan myoview: Mildly abnormal with partial thickness ischemia of basilar inferolateral wall and of apical lat and apical anterior segments. Her symptoms do not suggest ACS. No need for LHC especially in light of worsening acute on CKD, and worsening anemia. (4) Essential (primary) hypertension: Code(s): I10 - Essential (primary) hypertension Status: Acute Assessment and Plan: Stable. (5) Renal failure (ARF), acute on chronic: Code(s): N17.9 - Acute kidney failure, unspecified; N18.9 - Chronic kidney disease, unspecified Status: Acute Assessment and Plan: Consider nephrology consult. (6) Anemia: Code(s): D64.9 - Anemia, unspecified Status: Acute Assessment and Plan: Probably worsening with ARF. Subjective Date/time seen: 02/09/23 07:59 Interval history: Denies chest pain or sob. Exam Const: General: cooperative, healthy appearing and comfortable Orientation/consciousness: oriented to person, oriented to place and oriented to time Resp: Auscultation: crackles, no rales, no rhonchi and no wheezes Cardio: Rate: regular rate Rhythm: abnormal rhythm Heart sounds: Murmur heart sound present (II/ systolic murmur) Peripheral pulses: dorsalis pedis present Neuro: General: oriented to person, oriented to place and oriented to time Extrem: Right lower extremity: no edema Left lower extremity: no edema Objective Data Vital Signs Vital Signs: Vital Signs - 24 hr 02/08/23 08:00 02/08/23 08:08 02/08/23 08:08 Temperature 96.5 F L Pulse Rate 74 71 Respiratory Rate 24 H 18 Blood Pressure 94/61 L Pulse Oximetry 98 100 Oxygen Delivery Nasal Cannula Oxygen Flow Rate 1 Fraction of Inspired Oxygen 24 02/08/23 09:35 02/08/23 08:00 02/08/23 08:00 Temperature Pulse Rate 78 Respiratory Rate Blood Pressure 99/41 L Pulse Oximetry 100 Oxygen Delivery Nasal Cannula Oxygen Flow Rate 1 Fraction of Inspired Oxygen 02/08/23 10:00 02/08/23 12:00 02/08/23 12:00 Temperature 96.5 F L Pulse Rate 72 73 77 Respiratory Rate 20 Blood Pressure 111/42 L Pulse Oximetry 99 Oxygen Delivery Oxygen Flow Rate Fraction of Inspired Oxygen 02/08/23 14:00 02/08/23 16:00 02/08/23 16:00 Temperature 96.8 F L Pulse Rate 68 74 72 Respiratory Rate 20 Blood Pressure 111/45 L Pulse Oximetry 100 Oxygen Delivery Oxygen Flow Rate Fraction of Inspired Oxygen 02/08/23 12:00 02/08/23 16:00 02/08/23 18:00 Temperature Pulse Rate 93 Respiratory Rate Blood Pressure Pulse Oximetry 99 100 Oxygen Delivery Nasal Cannula Nasal Cannula Oxygen Flow Rate 1 1
--- NOTE | 2023-02-09 09:41 | P.PNNP_ITS ---
Progress Note: A&P Assessment and Plan (1) JERRY (acute kidney injury): Code(s): N17.9 - Acute kidney failure, unspecified Status: Resolved Assessment and Plan: * presumably due to decompensated heart failure and need for diuresis/IV diuretics * worsening creatinine noted since admission but better now (with decrease in diuretics) * evaluation to date: * renal ultrasound c/w CKD * urine electrolytes non-prerenal * CPK normal * urine eosinophils negative * minimal proteinuria * this maybe a situation where we have to accept a higher creatinine to achieve/maintain euvolemia... * follow trend of repeat labs and UOP (2) Chronic kidney disease, stage 3: Code(s): N18.30 - Chronic kidney disease, stage 3 unspecified Status: Chronic Assessment and Plan: * baseline creatinine runs ~ 1.0 - 1.5mg/dl * this causes her to fluctuate between CKD stager 3A and stage 3B * presumably due to hypertension, heart failure, pulmonary HTN, and age-related changes (3) Acute exacerbation of CHF (congestive heart failure): Qualifiers: Heart failure type: unspecified Qualified Code(s): I50.9 - Heart failure, unspecified Code(s): I50.9 - Heart failure, unspecified Status: Acute Assessment and Plan: * Cardiology following * IV diuresis on admission * back on oral diuretics * follow volume status (4) Hypertension: Code(s): I10 - Essential (primary) hypertension Status: Chronic Assessment and Plan: * reasonable control * perhaps an element of over-control * back on BP medications * follow trend of hemodynamics (5) Anemia: Code(s): D64.9 - Anemia, unspecified Status: Acute Assessment and Plan: * low H/H noted * partly related to JERRY and CKD * follow trend of H/H (6) Generalized weakness: Code(s): R53.1 - Weakness Status: Acute Assessment and Plan: * likely secondary to all of the above * PT/OT as tolerated Will continue to follow. Subjective Date/time seen: 02/09/23 09:41 Interval history: Follow-up for acute kidney injury/acute renal failure on chronic kidney disease. Renal function a bit better with reduction in diuretic therapy; denies any shortness of breath or chest pain at the time of my visit; no apparent distress noted; no other issues/events overnight or earlier this morning. Exam Narrative: General: elderly but WD/WN female in NAD Heart: IRRR, normal S1 and S2; no rub Lungs: clear anteriorly, decreased at bases Abdomen: soft, nontender, nondistended, positive bowel sounds Extremities: no cyanosis or clubbing; trace edema Skin: warm and dry Objective Data Vital Signs Vital Signs: Vital Signs Temp Pulse Resp BP Pulse Ox O2 Del Method O2 Flow Rate 02/09/23 08:00 90 Nasal Cannula 3 02/09/23 08:00 82 02/09/23 07:51 100 Nasal Cannula 1 02/09/23 07:47 97.6 F 70 20 104/47 L 100 02/09/23 05:51 74 02/09/23 03:34 97.6 F 72 18 101/42 L 93 02/09/23 03:28 74 18 94 Autopap 02/09/23 03:28 74 02/09/23 02:44 78 94 Autopap 02/09/23 02:00 64 02/08/23 23:15 74 18 93 Autopap 02/08/23 23:15 72 02/08/23 23:14 97.6 F 76 18
--- NOTE | 2023-02-09 09:41 | PM.PNNEP ---
Progress Note: A&P Assessment and Plan (1) JERRY (acute kidney injury): Code(s): N17.9 - Acute kidney failure, unspecified Status: Resolved Assessment and Plan: presumably due to decompensated heart failure and need for diuresis/IV diuretics worsening creatinine noted since admission but better now (with decrease in diuretics) evaluation to date: renal ultrasound c/w CKD urine electrolytes non-prerenal CPK normal urine eosinophils negative minimal proteinuria this maybe a situation where we have to accept a higher creatinine to achieve/maintain euvolemia... follow trend of repeat labs and UOP (2) Chronic kidney disease, stage 3: Code(s): N18.30 - Chronic kidney disease, stage 3 unspecified Status: Chronic Assessment and Plan: baseline creatinine runs ~ 1.0 - 1.5mg/dl this causes her to fluctuate between CKD stager 3A and stage 3B presumably due to hypertension, heart failure, pulmonary HTN, and age-related changes (3) Acute exacerbation of CHF (congestive heart failure): Qualifiers: Heart failure type: unspecified Qualified Code(s): I50.9 - Heart failure, unspecified Code(s): I50.9 - Heart failure, unspecified Status: Acute Assessment and Plan: Cardiology following IV diuresis on admission back on oral diuretics follow volume status (4) Hypertension: Code(s): I10 - Essential (primary) hypertension Status: Chronic Assessment and Plan: reasonable control perhaps an element of over-control back on BP medications follow trend of hemodynamics (5) Anemia: Code(s): D64.9 - Anemia, unspecified Status: Acute Assessment and Plan: low H/H noted partly related to JERRY and CKD follow trend of H/H (6) Generalized weakness: Code(s): R53.1 - Weakness Status: Acute Assessment and Plan: likely secondary to all of the above PT/OT as tolerated Will continue to follow. Subjective Date/time seen: 02/09/23 09:41 Interval history: Follow-up for acute kidney injury/acute renal failure on chronic kidney disease. Renal function a bit better with reduction in diuretic therapy; denies any shortness of breath or chest pain at the time of my visit; no apparent distress noted; no other issues/events overnight or earlier this morning. Exam Narrative: General: elderly but WD/WN female in NAD Heart: IRRR, normal S1 and S2; no rub Lungs: clear anteriorly, decreased at bases Abdomen: soft, nontender, nondistended, positive bowel sounds Extremities: no cyanosis or clubbing; trace edema Skin: warm and dry Objective Data Vital Signs Vital Signs: Vital Signs Temp Pulse Resp BP Pulse Ox O2 Del Method O2 Flow Rate 02/09/23 08:00 90 Nasal Cannula 3 02/09/23 08:00 82 02/09/23 07:51 100 Nasal Cannula 1 02/09/23 07:47 97.6 F 70 20 104/47 L 100 02/09/23 05:51 74 02/09/23 03:34 97.6 F 72 18 101/42 L 93 02/09/23 03:28 74 18 94 Autopap 02/09/23 03:28 74 02/09/23 02:44 78 94 Autopap 02/09/23 02:00 64 02/08/23 23:15 74 18 93 Autopap 02/08/23 23:15 72 02/08/23 23:14 97.6 F 76 18 118/42 L 93 02/08/23 22:20 87 95 Autopap 02/08/23 21:57 64 02/08/23 20:00 75 20 99 Nasal Cannula 1 02/08/23 20:00 75 02/08/23 20:22 97.6 F 20 112/63 99 02/08/23 18:00 93 02/08/23 16:00 100 Nasal Cannula 1 02/08/23 16:00 96.8 F L 72 20 111/45 L 100 02/08/23 16:00 74 02/08/23 14:00 68 Intake/Output Intake/Output: Intake & Output 02/06/23 02/07/23 02/08/23 02/09/23 23:59 23:59 23:59 23:59 Intake Total 1580 1100 1560 780 Output Total 900 1650 1400 400 Balance 680 -550 160 380 Meds/Results Medications: Active Medications Generic Name Dose Route Start Last Admin Trade Name Freq AR
[2023-02-09] MEDS: APIXABAN 2.5 MG TABLET PO (09:45)
[2023-02-09] MEDS: CYANOCOBALAMIN 1,000 MCG TABLET 1000 MCG BY MOUTH (09:45)
[2023-02-09] MEDS: LIDOCAINE 5% PATCH 1 PATCH TRANSDERM (09:45)
[2023-02-09] MEDS: CEFDINIR 300 MG CAPSULE PO (09:45)
[2023-02-09] MEDS: FUROSEMIDE 20 MG TABLET PO (09:45)
[2023-02-09] MEDS: CHOLECALCIFEROL 1,000 UNITS TABLET 2000 UNITS PO (09:45)
[2023-02-09] MEDS: PANTOPRAZOLE 40 MG TABLET PO (09:45)
[2023-02-09] MEDS: ASPIRIN 81 MG ENTERIC TABLET PO (09:45)
--- NOTE | 2023-02-09 12:37 | HOMEO2EVAL ---
Evaluation was performed at [facility] Home Oxygen Evaluation RC: Home Oxygen (O2) Evaluation Start: 02/09/23 10:48 Freq: ONCE Status: Active Protocol: RPE Activity Type Activity Date Activity User E-sign Co-sign Detail Recorded Client Recorded Date Recorded By Document 02/09/23 11:23 KRM [id number] 02/09/23 12:37 KRM Document 02/09/23 12:00 KRM [email or web address] 02/09/23 12:37 KRM Document 02/09/23 12:02 KRM [email or web address] 02/09/23 12:37 KRM Document 02/09/23 12:04 KRM [email or web address] 02/09/23 12:37 KRM 02/09/23 02/09/23 02/09/23 11:23 12:00 12:02 Home O2 Evaluation [Oxygen] -Test Phase Resting Exercise Exercise -Oxygen Delivery Room Air Room Air Nasal Cannula -Oxygen Flow Rate (L/min) 1 [Pulse Oximetry] -Pulse Oximetry (90-100 %) 97 86 L 88 L [Pulse Rate] -Pulse Rate (60-100 beats/min) 75 106 H 109 H [Evaluation] -Activity Tolerance Poor [Exercise] -Ambulation Distance (feet) -Ambulation Distance (meters) [Comments] -Home Oxygen Evaluation Comments [Charges] -Treatment Charges 02/09/23 12:04 Home O2 Evaluation [Oxygen] -Test Phase Exercise -Oxygen Delivery Nasal Cannula -Oxygen Flow Rate (L/min) 2 [Pulse Oximetry] -Pulse Oximetry (90-100 %) 92 [Pulse Rate] -Pulse Rate (60-100 beats/min) 112 H [Evaluation] -Activity Tolerance Poor [Exercise] -Ambulation Distance (feet) 25 -Ambulation Distance (meters) 7.61 [Comments] -Home Oxygen Evaluation Comments 2LPM WITH ACTIVITY [Charges] -Treatment Charges O2 Evaluation - Inpatient
--- NOTE | 2023-02-09 12:40 | PCRCNOTE ---
HOME O2 SETUP COMPLETE. SET PT. UP WITH [facility]. [phone]. TANK IN ROOM.
--- NOTE | 2023-02-09 13:39 | PM.DS ---
DS: Admitting Diagnosis Discharge Date February 09, 2023 Admitting Diagnosis CHF exacerbation DS: Discharge Diagnosis Discharge Diagnosis (1) Generalized weakness: Code(s): R53.1 - Weakness Status: Acute (2) Elevated troponin: Code(s): R79.89 - Other specified abnormal findings of blood chemistry Status: Acute (3) Paroxysmal atrial fibrillation with RVR: Code(s): I48.0 - Paroxysmal atrial fibrillation Status: Acute (4) Abnormal urinalysis: Code(s): R82.90 - Unspecified abnormal findings in urine Status: Acute (5) Elevated d-dimer: Code(s): R79.89 - Other specified abnormal findings of blood chemistry Status: Acute (6) Hypoxic respiratory failure: Qualifiers: Chronicity: acute on chronic Qualified Code(s): J96.21 - Acute and chronic respiratory failure with hypoxia Code(s): J96.91 - Respiratory failure, unspecified with hypoxia Status: Acute (7) Acute exacerbation of CHF (congestive heart failure): Qualifiers: Heart failure type: unspecified Qualified Code(s): I50.9 - Heart failure, unspecified Code(s): I50.9 - Heart failure, unspecified Status: Acute (8) Pleural effusion: Code(s): J90 - Pleural effusion, not elsewhere classified Status: Acute (9) Pulmonary vascular congestion: Code(s): R09.89 - Other specified symptoms and signs involving the circulatory and respiratory systems Status: Acute (10) Urinary tract infection: Qualifiers: Hematuria presence: without hematuria Urinary tract infection type: acute cystitis Qualified Code(s): N30.00 - Acute cystitis without hematuria Code(s): N39.0 - Urinary tract infection, site not specified Status: Acute (11) Vitamin D deficiency: Code(s): E55.9 - Vitamin D deficiency, unspecified Status: Acute (12) Shortness of Breath: Code(s): R06.02 - Shortness of breath Status: Acute (13) Oxygen dependent: Code(s): Z99.81 - Dependence on supplemental oxygen Status: Acute (14) PAF (paroxysmal atrial fibrillation): Code(s): I48.0 - Paroxysmal atrial fibrillation Status: Acute Plan 1. CHF exacerbation Patient has acute on chronic CHF exacerbation resulting in acute on chronic hypoxic respiratory failure.? Heart failure exacerbation is due to combination of recent cessation of diuretic therapy and likely some component of high output failure with AFib RVR.? stress test noted - consult placed to her visual supervisor continue cardiac regimen 2. Elevated troponin + stress test - cardiology notified 3. CKD monitor 4. Abnormal UA abx 5. Elevated d-dimer Patient did have an elevated D-dimer but was normal for age adjustment.? Patient is on chronic anticoagulation.? CT of the chest performed in the ER was negative for pulmonary embolism.? Will need to monitor patient's renal function closely given recent IV contrast administration. Unclear cause. No need to intervene 02/05 no PE 6. Possible Pneumonia abx 7. Generalized weakness f/u PT/OT 8. Chronic COPD Patient does have chronic COPD but has no evidence of COPD exacerbation.? Will continue home inhalers. on trelegy, home bipap, not on home o2 per pt 02/05 on o2 only at night. likely tolerates a lower o2 setting due to hx of copd 9. Back pain ibuprofen 400 mg bid prn lidocaine patch 10. yanira on ckd renal consult - 2/2 diuresis which is needed to treat CHF DS: Summary Hospital Course Hospital Course: Patient is an 83-year-old female who came in with CHF exacerbation. Medications were adjusted. Diuretics were started and she improved with respect her volume status. To note she was on a beta-kika and her heart rate did drop into the 30s and her beta-kika was stopped and this has subsequently improved. She is not having any chest pain or any other cardiac complaints at this time. She will be evalua
[2023-02-12 13:48] LABS: Albumin 2.9 g/dL (3.8-4.8); Alpha 1 Globulin 0.4 g/dL (0.2-0.3); Alpha 2 Globulin 0.6 g/dL (0.5-0.9); Beta 1 Globulin 0.4 g/dL (0.4-0.6); Gamma Globulin 1.2 g/dL (0.8-1.7); Protein, Total 5.9 g/dL (6.1-8.1)
[2023-02-14 14:11] LABS: Creatinine, Random Urine 59 mg/dL (20-275); Total Protein/Creatinine Ratio 186 mg/g creat (24-184)
== END 2023-02-09 14:15 | disposition home or self-care (01) | DRG 291 ==
LOC: ANHED 02-04 01:19 → ANHIMU 02-04 01:35
PROVIDERS: Internal Medicine; Internal Medicine Nephrology; Admitting Provider Internal Medicine; Emergency Provider Emergency Medicine; PCP Family Medicine; Visit Provider Chiropractor
DX: I13.0 Hypertensive heart and chronic kidney disease with heart failure and stage 1 through stage 4 chronic kidney disease, or unspecified chronic kidney disease (principal); I50.33 Acute on chronic diastolic (congestive) heart failure; J96.21 Acute and chronic respiratory failure with hypoxia; N30.00 Acute cystitis without hematuria; N17.9 Acute kidney failure, unspecified; D63.1 Anemia in chronic kidney disease; E55.9 Vitamin D deficiency, unspecified; G89.29 Other chronic pain; I27.20 Pulmonary hypertension, unspecified; I35.0 Nonrheumatic aortic (valve) stenosis; I48.0 Paroxysmal atrial fibrillation; J44.9 Chronic obstructive pulmonary disease, unspecified; N18.30 Chronic kidney disease, stage 3 unspecified; M54.9 Dorsalgia, unspecified; Z99.81 Dependence on supplemental oxygen; Z88.0 Allergy status to penicillin; Z90.49 Acquired absence of other specified parts of digestive tract; Z90.710 Acquired absence of both cervix and uterus; Z98.41 Cataract extraction status, right eye; Z87.891 Personal history of nicotine dependence; Z66 Do not resuscitate; Z79.01 Long term (current) use of anticoagulants
CPT/HCPCS: 36415; 71045; 71275; 76775; 78452; 80048; 80053; 81001; 81050; 82550; 82570; 82948; 83735; 83880; 84155; 84156; 84165; 84166; 84300; 84484; 84540; 85025; 85027; 85055; 85380; 85610; 85730; 85999; 87077; 87086; 87186; 93005; 93017; 93306; 94618; 94640; 96365; 96367; 96375; 97110; 97161; 97165; 97530; 97535; 99285; A9270; A9502; G0378; J0456; J0612; J0696; J1940; J2405; J2785; Q9967